=== PATIENT | female | born 1985 | race Hispanic/Latino ===

== ENCOUNTER 2016-04-09 10:09 | Emergency (ER) | payer MEDICAID ==
[~2016-04-09] VITALS: Ht 165.1 cm; Wt 124.7 kg
[~2016-04-09 10:09] MED LIST: ALBU8.5H2 IH; ALBU8.5H2 INH; AMOX250C PO; AMOX500C2 PO; AZIT-21 PO; AZIT250T5 PO; BENZ-13 PO; BUDE10.22 IH; BUDE6HFA INH; BUPR-168 PO; BUPR150T7 PO; CALC500T7 PO; CIPR500T4 PO; CLON1TAB3 PO; CODE118S2 PO; CYCL10TA9 PO; DIPH1TAB25 PO; DOCU100C37 PO; ETHI1TAB PO; FERR-74 PO; FLUT16SP22; HYDR-3816 PO; HYDR-757 PO; IBUP-15 PO; IBUP-1780 PO; LISD30CA3 PO; MEDR150D6 IM; MULT-974 PO; NAPR500T PO; NITR-68 PO; OMEP20TA33 PO; OMEP40CA36 PO; ONDA8TAB13 PO; OXYC-12 PO; OXYC-465 PO; PARO20TA4 PO; PRD20T PO; PRED20TA PO; PREN-53 PO; PROM25TA14 PO; RT-ALBUINH IH; SUCR1TAB PO; TRAM50TA2 PO; YASMIN
--- OUTSIDE RECORDS SUMMARY | 2016-04-09 10:14 | XMS REPORT ---
Author Author [facility], [facility] - Organization Unknown Address Unknown Phone Unavailable Allergies, Adverse Reactions, Alerts No Latex Allergy.No IV Contrast Allergy.No Known Drug Allergies.No Known Food Allergies.No Known Allergies. Problems PainStatus:Resolved. Procedures No relevant procedures performed. Medication Medication reconciliation has not been performed. Results LAB--FLUID TESTING from 10/05/2012 12:16 AMFetal Fibronectin Negative
[2016-04-09] MEDS ORDERED: DEXAMETHASONE PF 10 MG/ML (DECADRON) VIAL IM STA (11:26)
[2016-04-09] MEDS ORDERED: PSEU-137 PO (11:29)
[2016-04-09] MEDS ORDERED: TRAM50TA2 PO (11:29)
--- NOTE | 2016-04-09 11:30 | ED Cough/URI ---
General Chief Complaint: Cough/Cold/Flu Symptoms Stated Complaint: SINUS INFECTION Nursing Triage Note: AMB TO ROOM REPORTS HAS HAD SINUS INFECTION FOR 1 MONTH. HAS BEEN ON 2 ROUNDS ON ANTIBIOTIC AND PREDISONE. WAS GIVEN HYDROCODNE. NOT ANY BETTER AND HYDROCODONE NOT HELPING FOR PAIN History of Present Illness Time seen by provider: 11:10 Initial Comments Evaluation for chronic sinus pain. Patient took Augmentin for 10 days the first week of March. She took Zpack and finished it approximately 2 to take 3 days ago. Continues to have sinus pain. Per K Tracs she had hydrocodone No. 20 filled on 03/23/16 and oxycodone No 60 filled on 02/24/16. She has discontinued her Flonase. She denies running any fevers and really has had no improvement with any of the treatments thus far. Timing/Duration: getting worse Severity/Quality: no cough Prior Episodes/Possible Cause: frequent episodes Modifying Factors: Improves With Rest Associated Symptoms: facial pain, headache, sinus infection Allergies and Home Medications Allergies Coded Allergies: No Known Drug Allergies (Unverified , 03/11/13) Home Medications Albuterol Sulfate 8.5 Gm Hfa.aer.ad #1 1-2 PUFF IH Q4H PRN PRN WHEEZING Prescribed by: BLAKE BRO on 10/15/15 2327 Albuterol Sulfate 6.7 Gm Hfa.aer.ad #1 2 PUFF IH Q4H PRN PRN SHORTNESS OF BREATH Prescribed by: TIAN VASQUEZ on 02/02/16 2211 Pseudoephedrine HCl 30 Mg Tablet #30 30 MG PO Q8H Prescribed by: HERACLIO BYRD on 04/09/16 1129 Tramadol HCl 50 Mg Tablet #12 50 MG PO Q8H Prescribed by: HERACLIO BYRD on 04/09/16 1129 Constitutional: no symptoms reported see HPI EENTM: ear pain (pressure and feelings of fluid) nose pain other (pain along the maxilla and upper teeth) see HPI Respiratory: no symptoms reported see HPI Cardiovascular: no symptoms reported see HPI Gastrointestinal: no symptoms reported see HPI Genitourinary: no symptoms reported see HPI Musculoskeletal: no symptoms reported see HPI Skin: no symptoms reported see HPI Psychiatric/Neurological: No Symptoms Reported See HPI Hematologic/Lymphatic: No Symptoms Reported See HPI Immunological/Allergic: no symptoms reported see HPI All Other Systems Reviewed Negative Unless Noted: Yes Past Nkyjdlz-Uvlpzz-Mxfzzx Hx Patient Social History Type Used: Cigarettes Recent Foreign Travel: No Contact w/Someone Who Travel: No Recent Infectious Disease Expo: No Immunizations Up To Date Tetanus Booster (TDap): Unknown Date of Pneumonia Vaccine: Feb 21, 2012 Date of Influenza Vaccine: Nov 04, 2015 Seasonal Allergies Seasonal Allergies: Yes Surgeries HX Surgeries: Yes (WISDOM TEETH REMOVED. CERVIX BIOPSY; LEFT ARM FX/ORIF) Surgeries: Adenoidectomy, Section, Gallbladder, Orthopedic, Tonsillectomy Respiratory Hx Respiratory Disorders: Yes ("SITUATIONAL" ASTHMA--DOES NOT ROUTINELY USE AN INHALER) Respiratory Disorders: Asthma, Pneumonia Cardiovascular Hx Cardiac Disorders: No Neurological Hx Neurological Disorders: Yes Neurological Disorders: Headaches /Migraines Reproductive System Hx Reproductive Disorders: No Female Reproductive Disorders: Denies Genitourinary Hx Genitourinary Disorders: No Gastrointestinal Hx Gastrointestinal Disorders: Yes Gastrointestinal Disorders: Chronic Diarrhea, Esophagitis Musculoskeletal Hx Musculoskeletal Disorders: Yes (LEFT ARM FX/ORIF, right ankle fx) Musculoskeletal Disorders: Arthritis, Chronic Back Pain, Fractures Endocrine Hx Endocrine Disorders: No HEENT HX ENT Disorders: No Cancer Hx Cancer: No Psychosocial Hx Psychiatric Problems: Yes Behavioral Health Disorders: ADD/ADHD, Anxiety, ODD, Depression Integumentary HX Skin/Integumentary Disorder: Yes (very sensitive skin-breaks out in rashes frequently) Skin/Integumentary Disorders: Psoriasis Blood Transfusions Hx Blood Disorders: Yes (anemia, ) Adverse Reaction to a Blood Tr: No Reviewed Nursing Assessment Reviewed/Agree w Nursing PMH: Yes Family Medical History Significant Family History: Heart Disease, Cancer, Diabetes Family Medial History: Diabetes mellitus 19 MOTHER FH: COPD (chronic obstructive pulmonary disease) 19 MOTHER FH: schizophrenia 19 MOTHER FH: uterine cancer Fibromyalgia 19 MOTHER Physical Exam Vital Signs Vital Sign - Last 12Hours 04/09/16 04/09/16 10:12 11:35 Temp 96.6 Pulse 93 Resp 18 B/P 150/93 Pulse Ox 100 Capillary Refill : Less Than 3 Seconds General Appearance: WD/WN no apparent distress Eyes: Bilateral Eye EOMI, Bilateral Eye Normal Inspection, Bilateral Eye PERRL HEENT: PERRL/EOMI pharynx normal (no postnasal drainage) TM abnormal (R) TM abnormal (L)No pharyngeal erythema, No tonsillar exudate, other (bilateral TMs slightly bulging with clear effusion, no erythema) Neck: non-tender full range of motion supple normal inspection Respiratory: chest non-tender lungs clear no respiratory distress Cardiovascular: normal peripheral pulses regular rate, rhythm no murmur Gastrointestinal: normal bowel sounds non tender soft Extremities: normal range of motion non-tender normal inspection no calf tenderness normal capillary refill Neurologic/Psychiatric: no motor/sensory deficits alert normal mood/affect oriented x 3 Skin: normal color warm/dry Lymphatic: no adenopathy Progress/Results/Core Measures Results/Orders My Orders Orders-HERACLIO BYRD Dexamethasone Pf Injection (Decadron Pf (04/09/16 11:26) Vital Signs/I&O Vital Sign - Last 12Hours 04/09/16 04/09/16 10:12 11:35 Temp 96.6 Pulse 93 93 Resp 18 18 B/P 150/93 Pulse Ox 100 Blood Pressure Mean: 112 Departure Impression Impression: Primary Impression: Chronic sinusitis, unspecified Disposition: 01 HOME, SELF-CARE Condition: Stable Departure-Patient Inst. Decision time for Depature: 11:25 Referrals: [facility] (PCP[facility]Family) Primary Care Physician Patient Instructions: Chronic Sinusitis Add. Discharge Instructions: All discharge instructions reviewed with patient and/or family. Voiced understanding. Resume Flonase Use sinus rinse every 2hours. Warm moist compresses to areas of tenderness on face. Return to emergency room for worsening symptoms, fever, or new concerns. Follow-up with primary care in 2-3 days if no better consider referral to Dr. Burgess. Scripts Tramadol HCl 50 Mg Vnvhhn96 Mg PO Q8H #12 TAB Prov:HERACLIO BYRD 04/09/16 Pseudoephedrine HCl (Sudafed)30 Mg Veffxy49 Mg PO Q8H #30 TAB Ref 0 Prov:HERACLIO BYRD 04/09/16 Copy Copies To 1: SHREYAS HOWARD MD, AMY ARNP Apr 09, 2016 11:30
[2016-04-09 11:35] VITALS: BP 150/96
== END 2016-04-09 11:41 | disposition home or self-care (01) ==
LOC: EDUNIT# 10:09 → ER 10:11
DX: J32.9 Chronic sinusitis, unspecified (principal)
CPT/HCPCS: 96372; 99282

== ENCOUNTER 2016-05-26 21:55 | Emergency (ER) | payer MEDICAID ==
[~2016-05-26] VITALS: Ht 165.1 cm; Wt 122.5 kg
[~2016-05-26 21:55] MED LIST changes: +PSEU-137 PO
[2016-05-26] MEDS ORDERED: VORT20TA (22:54)
[2016-05-26] MEDS ORDERED: VYVANSE (22:54)
[2016-05-26] MEDS ORDERED: TRAZ150T72 (22:54)
[2016-05-26] MEDS ORDERED: DEXT10TA24 (22:54)
[2016-05-27] MEDS ORDERED: CLINDAMYCIN 150 MG (CLEOCIN) CAP PO ONE
[2016-05-27] MEDS ORDERED: LIDOCAINE 1% INJ 20 ML (XYLOCAINE) VIAL INJ ONE
[2016-05-27] MEDS ORDERED: CLIN150C17 PO (00:20)
[2016-05-27] MEDS ORDERED: HYDR-3812 PO (00:21)
--- NOTE | 2016-05-27 00:22 | ED General ---
General Chief Complaint: Dental Problems/Pain Stated Complaint: POSS R SIDE FACE ABSCESS/CONGESTION Nursing Triage Note: PT TO ED 3 W/ C/O POSS DENTAL ABSCESS ONSET YESTERDAY. VERY POOR DENTAL HYGIENE NOTED. Nursing Sepsis Screen: No Definite Risk Source of Information: Patient Exam Limitations: No Limitations History of Present Illness Time Seen by Provider: 23:42 Initial Comments This 30-year-old woman presents to the emergency room with complaints of right facial tenderness and pain since yesterday. She has been taking ibuprofen. States temperature at home was up to 101.7. She reports having a "knot" just posterior to the insertion of the canine tooth on the right upper mouth. This area is very tender. Allergies and Home Medications Allergies Coded Allergies: No Known Drug Allergies (Unverified , 03/11/13) Home Medications Clindamycin HCl 150 Mg Capsule, 450 MG PO TID, #90 Prescribed by: RIDDHI APARICIO on 05/27/16 0020 Dextroamphetamine/Amphetamine 10 Mg Tablet, #28 (Reported) Hydrocodone/Acetaminophen 1 Each Tablet, 1 EACH PO Q4H PRN for PAIN, #10 Prescribed by: RIDDHI APARICIO on 05/27/16 0021 Trazodone HCl 150 Mg Tablet, #15 (Reported) Vortioxetine Hydrobromide 20 Mg Tablet, #30 (Reported) [Vyvanse] , #28 (Reported) Constitutional: see HPI EENTM: see HPI Respiratory: no symptoms reported Cardiovascular: no symptoms reported Gastrointestinal: no symptoms reported Genitourinary: no symptoms reported : No Musculoskeletal: no symptoms reported Skin: no symptoms reported Psychiatric/Neurological: No Symptoms Reported Past Hfkyubx-Rctyuh-Kzfxmk Hx Patient Social History Alcohol Use: Denies Use Recreational Drug Use: No Smoking Status: Current Everyday Smoker Type Used: Cigarettes Recent Foreign Travel: No Contact w/Someone Who Travel: No Recent Infectious Disease Expo: No Immunizations Up To Date Tetanus Booster (TDap): Unknown Date of Pneumonia Vaccine: Feb 21, 2012 Date of Influenza Vaccine: Nov 04, 2015 Seasonal Allergies Seasonal Allergies: Yes Surgeries HX Surgeries: Yes (WISDOM TEETH REMOVED. CERVIX BIOPSY; LEFT ARM FX/ORIF) Surgeries: Adenoidectomy, Section, Gallbladder, Orthopedic, Tonsillectomy, Tubal Ligation Respiratory Hx Respiratory Disorders: Yes ("SITUATIONAL" ASTHMA--DOES NOT ROUTINELY USE AN INHALER) Respiratory Disorders: Asthma, Pneumonia Cardiovascular Hx Cardiac Disorders: No Neurological Hx Neurological Disorders: Yes Neurological Disorders: Headaches /Migraines Reproductive System Hx Reproductive Disorders: No Female Reproductive Disorders: Denies Genitourinary Hx Genitourinary Disorders: No Gastrointestinal Hx Gastrointestinal Disorders: Yes Gastrointestinal Disorders: Chronic Diarrhea, Esophagitis Musculoskeletal Hx Musculoskeletal Disorders: Yes (LEFT ARM FX/ORIF, right ankle fx) Musculoskeletal Disorders: Arthritis, Chronic Back Pain, Fractures Endocrine Hx Endocrine Disorders: No HEENT HX ENT Disorders: No Cancer Hx Cancer: No Psychosocial Hx Psychiatric Problems: Yes Behavioral Health Disorders: ADD/ADHD, Anxiety, ODD, Depression Integumentary HX Skin/Integumentary Disorder: Yes (very sensitive skin-breaks out in rashes frequently) Skin/Integumentary Disorders: Psoriasis Blood Transfusions Hx Blood Disorders: Yes (anemia, ) Adverse Reaction to a Blood Tr: No Family Medical History Significant Family History: Heart Disease, Cancer, Diabetes Family Medial History: Diabetes mellitus 19 MOTHER FH: COPD (chronic obstructive pulmonary disease) 19 MOTHER FH: schizophrenia 19 MOTHER FH: uterine cancer Fibromyalgia 19 MOTHER Physical Exam Vital Signs Vital Sign - Last 12Hours 05/26/16 22:41 Temp 97.8 Pulse 93 Resp 20 B/P (MAP) 129/71 Pulse Ox 99 O2 Delivery Room Air Capillary Refill : Less Than 3 Seconds General Appearance: WD/WN, Mild Distress HEENT: PERRL/EOMI, TMs Normal, Pharynx Normal, Other (Apparent abscess near the root of the canine tooth on the right upper mouth. She has a dental erosion in this area.) Neck: Normal Inspection, Non Tender, Supple Respiratory: Lungs Clear, Normal Breath Sounds, No Accessory Muscle Use, No Respiratory Distress Cardiovascular: Regular Rate, Rhythm, No Edema, No Murmur Extremity: Normal Inspection Neurologic/Psychiatric: Alert, Oriented x3, No Motor/Sensory Deficits, Normal Mood/Affect, job estimator II-XII Norm as Tested Skin: Normal Color, Warm/Dry Dental Procedures: Dental I&D Progress/Results/Core Measures Results/Orders My Orders Medications Given in ED Vital Signs/I&O Blood Pressure Mean: 90 Progress Note : Progress Note Dental abscess was identified on examination. A local anesthesia was provided with one percent lidocaine. Approximately 4 mL was injected around the abscess. A number 11 scalpel was used to place a tiny incision over the abscess. A scant amount of pus did drain from the abscess. Patient was treated with clindamycin and Toradol was administered for further pain control. Departure Impression Impression: Primary Impression: Dental abscess Additional Impression: Encounter for incision and drainage procedure Disposition: HOME, SELF-CARE Condition: Improved Departure-Patient Inst. Decision time for Depature: 00:05 Referrals: [facility] (PCP/Family) Primary Care Physician Patient Instructions: Tooth Abscess (DC) Add. Discharge Instructions: Continue to brush your teeth gently twice daily. Complete your antibiotics as prescribed. You may take ibuprofen up to 800 mg every 8 hours as needed for pain. Add hydrocodone for pain not controlled by ibuprofen. Do not drive or operate machinery while using hydrocodone. Follow-up with a dentist as soon as possible for dental extraction. Return to care if symptoms worsen. All discharge instructions reviewed with patient and/or family. Voiced understanding. Scripts Hydrocodone/Acetaminophen (Hydrocodon -Acetaminophen 5-325) 1 Each Tablet 1 EACH PO Q4H Y for PAIN, #10 TAB Prov: RIDDHI ARIAS MD 05/27/16 Clindamycin HCl (Clindamycin HCl) 150 Mg Capsule 450 MG PO TID, #90 CAP Prov: RIDDHI ARIAS MD 05/27/16 Work/School Note: Work Release Form Date Seen in the Emergency Department: May 26, 2016 Return to Work: May 27, 2016 Restrictions: No Restrictions RIDDHI ARIAS MD May 27, 2016 00:22
[2016-05-27] MEDS ORDERED: KETOROLAC 60 MG/2 ML VIAL IM ONE (00:30)
[2016-05-27 00:41] VITALS: BP 112/94
--- OUTSIDE RECORDS SUMMARY | 2016-06-27 00:54 | XMS REPORT ---
Author Author TAO ALEX [facility] eClinicalWorks Address Unknown Phone Unavailable Care Team Providers Care Manager Heart Failure Name Role Phone TAO ALEX CP Unavailable Allergies, Adverse Reactions, Alerts Substance Reaction Event Type N.K.D.A. Info Not Available Non Drug Allergy Problems Problem Type Condition Code Onset Dates Condition Status Problem Obesity, unspecified 278.00 Active Problem Major depressive disorder, recurrent episode, moderate 296.32 Active Problem Unspecified symptom associated with female genital organs 625.9 Active Problem Unspecified contraceptive management V25.9 Active Problem Previous delivery, unspecified as to episode of care or not applicable 654.20 Active Problem Acute sinusitis, unspecified 461.9 Active Problem Generalized anxiety disorder 300.02 Active Problem Obsessive-compulsive disorders 300.3 Active Problem Lumbago 724.2 Active Problem Cough 786.2 Active Assessment Z33.1 Active Problem Screening examination for venereal disease V74.5 Active Problem Counseling on substance use and abuse V65.42 Active Problem Allergic rhinitis due to pollen 477.0 Active Problem Screening for malignant neoplasm of the cervix V76.2 Active Problem General counseling for prescription of oral contraceptives V25.01 Active Problem Routine gynecological examination V72.31 Active Problem Acute pharyngitis 462 Active Medications Medication Code System Code Instructions Start Date End Date Status Dosage [facility] [address] - Orally Once a day 1 tablet Omeprazole [facility] [address]-86 10 MG Orally Once a day Dec 02, 2015 2 capsules Promethazine HCl [facility] [address]-58 25 MG Orally every 8 hours, PRN OctJan 03, 2016 1 tablet as needed ProAir HFA [facility] [address]-32 108 (90 Base) MCG/ACT Inhalation every 4 hrs 2 puffs as needed Ferrous Sulfate [facility] [address]-96 325 (65 Fe) MG Orally twice a day 1 tablet Procedures Procedure Coding System Code Date Office Visit, Est Pt., Level 3 CPT-4 86556 Dec 09, 2015 URINE-NO MICRO CPT-4 02149 Dec 09, 2015 Vital Signs Date/Time: Dec 09, 2015 Cardiac Monitoring Heart Rate 100 bpm Weight 302 lbs Height 65 in BMI 50.255 Index Blood Pressure Diastolic 84 mmHg Blood Pressure Systolic 132 mmHg Results No Known Results Summary Purpose eClinicalWorks Submission
--- OUTSIDE RECORDS SUMMARY | 2016-06-27 00:54 | XMS REPORT ---
Author Author TAO ALEX Organization [facility] Address [address] [place] [address] Care Team Providers Care Office Inspector Name Role Phone TAO ALEX Unavailable PROBLEMS Type Condition ICD9-CM Code [id number] Code Onset Dates Condition Status SNOMED Code Problem Unspecified symptom associated with female genital organs 625.9 Active 512887120 Problem Obsessive-compulsive disorders 300.3 Active 274273252 Problem Major depressive disorder, recurrent episode, moderate 296.32 Active 54266384 Problem Acute sinusitis, unspecified 461.9 Active 21209562 Problem Unspecified contraceptive management V25.9 Active 410197971 Problem Cough 786.2 Active 71828794 Problem Generalized anxiety disorder 300.02 Active 42807961 Problem Previous delivery, unspecified as to episode of care or not applicable 654.20 Active 345907356 Problem Lumbago 724.2 Active 438854074 Problem Screening examination for venereal disease V74.5 Active 622618503 Problem Screening for malignant neoplasm of the cervix V76.2 Active 368985351 Problem Allergic rhinitis due to pollen 477.0 Active 27605920 Problem General counseling for prescription of oral contraceptives V25.01 Active 819906606 Problem Routine gynecological examination V72.31 Active 901270964312527 Problem Acute pharyngitis 462 Active 621126504 Problem Counseling on substance use and abuse V65.42 Active 734577247 Problem Obesity, unspecified 278.00 Active 534628958 ALLERGIES Unknown Allergies SOCIAL HISTORY No smoking Hx information available PLAN OF CARE VITAL SIGNS MEDICATIONS Unknown Medications RESULTS No Results PROCEDURES No Known procedures IMMUNIZATIONS No Known Immunizations
--- OUTSIDE RECORDS SUMMARY | 2016-06-27 00:54 | XMS REPORT ---
Author Author TAO ALEX [facility] eClinicalWorks Address Unknown Phone Unavailable Care Team Providers Care Ice House Supervisor Name Role Phone TAO ALEX Unavailable Allergies No Known Allergies Problems Problem Type Condition Code Onset Dates [...] Instructions Start Date End Date Status Dosage ProAir HFA [facility] [address]-44 108 (90 Base) MCG/ACT Inhalation every 4 hrs 2 puffs as needed Ferrous Sulfate [facility] [address]-23 325 (65 Fe) MG Orally twice a day 1 tablet [facility] [address] - Orally Once a day 1 tablet Omeprazole [facility] [address]-11 10 MG Orally Once a day Dec 02, 2015 2 capsules Promethazine HCl [facility] [address]-40 25 MG Orally every 8 hours, PRN OctJan 03, 2016 1 tablet as needed Procedures Procedure Coding System Code Date Office Visit, Est Pt., Level 3 CPT-4 97353 Dec 16, 2015 LAB NOT BILLED BY [facility] CPT-4 NOBLL Dec 16, 2015 URINE-NO MICRO CPT-4 48360 Dec 16, 2015 Vital Signs Date/Time: Dec 16, 2015 Cardiac Monitoring Heart Rate 102 bpm Weight 299.7 lbs Height 65 in BMI 49.873 Index Blood Pressure Diastolic 85 mmHg Blood Pressure Systolic 142 mmHg Results Name Result Date Reference Range Unit Abnormality Flag UA OB DIP (IN HOUSE) ----Glucose negative [id number] ----Protein 1+ [id number] Summary Purpose eClinicalWorks Submission
--- OUTSIDE RECORDS SUMMARY | 2016-06-27 00:57 | XMS REPORT ---
Author MERVIN Soto [facility] eClinicalWorks Address Unknown Phone Unavailable Care Team Providers Care Trimmer Machine Operator Name Role Phone MERVIN DURON CP Unavailable Allergies, Adverse Reactions, Alerts Substance [...] 724.2 Active Problem Cough 786.2 Active Assessment Bilateral otitis media with effusion H65.93 Active Problem Screening examination for venereal disease [...] Instructions Start Date End Date Status Dosage HydrOXYzine HCl [facility] [address]-40 25 MG Orally every 8 hrs Oct 16, 2015 1 tablet as needed ProAir HFA [facility] [address]-57 108 (90 Base) MCG/ACT Inhalation every 4 hrs 2 puffs as needed Amoxicillin [facility] [address]-19 875 MG Orally every 12 hrs Oct 16, 2015 Oct 26, 2015 1 tablet Prednisone NDC 0 Oral 1 tab Procedures Procedure Coding System Code Date Office Visit, Est Pt., Level 3 CPT-4 73068 Oct 16, 2015 Vital Signs Date/Time: Oct 16, 2015 Cardiac Monitoring Heart Rate 102 bpm Weight 297.2 lbs Height 65 in BMI 49.45 Index Blood Pressure Diastolic 76 mmHg Blood Pressure Systolic 132 mmHg Results No Known Results Summary Purpose eClinicalWorks Submission
--- OUTSIDE RECORDS SUMMARY | 2016-06-27 00:57 | XMS REPORT | Continuity of Care Document ---
Author Author [facility] Organization [facility] Address Unknown Phone Unavailable Allergies Active Description Code Type Severity Reaction Onset Reported/Identified Relationship to Patient Clinical Status Yes No Known Drug Allergies [id number] Drug Allergy Unknown N/ A 03/11/2013 Medications Problems Date Dx Coded Attending Type Code Diagnosis Diagnosed By 07/06/2012 Jonel RECIO, Yasmine Wilkerson V22.1 SUPERVIS OTH NORMAL PREG 11/21/2012 Yasmine Remy MD 644.21 EARLY ONSET DELIVERY-DEL 11/21/2012 Yasmine Remy MD F 652.21 BREECH PRESENTAT-DELIVER 11/21/2012 Yasmine Remy MD 652.23 BREECH PRESENT-ANTEPART 11/21/2012 Yasmine Remy MD F 659.71 ABN DEL FET HT RT/RHYTHM,W OR W/O MENTION OF ANTEP 11/21/2012 Yasmine Remy MD 660.01 OBSTRUC/FET MALPOS-DELIV 11/21/2012 Jonel RECIO, Yasmine Chávez V27.0 DELIVER-SINGLE LIVEBORN 02/04/2013 SULTANA HINES APRN 462 ACUTE PHARYNGITIS 02/04/2013 DESTINY BILLINGS APRN A 462 ACUTE PHARYNGITIS 02/04/2013 SULTANA HINES APRN R 462 ACUTE PHARYNGITIS 02/04/2013 ESTER SORENSON APRN 462 ACUTE PHARYNGITIS 02/04/[address] MACHINERY INSPECTOR, DARA 462 ACUTE PHARYNGITIS 02/04/2013 ANITA RECIO, SHREYAS 462 ACUTE PHARYNGITIS 02/04/2013 BARON SALES DO 462 ACUTE PHARYNGITIS 02/04/[address] MACHINERY INSPECTOR, DARA 462 ACUTE PHARYNGITIS 02/04/2013 TOM BILLINGS APRNIDI A 462 ACUTE PHARYNGITIS 02/04/2013 SELVIN COHEN, DARA 462 ACUTE PHARYNGITIS 02/04/2013 ISAI HINES APRNIA R 462 ACUTE PHARYNGITIS 02/04/2013 ISAI HINES APRNIA R 462 ACUTE PHARYNGITIS 02/04/2013 CIELO SORENSON APRNINA R 462 ACUTE PHARYNGITIS 02/04/2013 AMIE STEPHENS, RAIN 462 ACUTE PHARYNGITIS 02/04/2013 BOB COHEN, AWILDA A 462 ACUTE PHARYNGITIS 02/04/2013 DESTINY BILLINGS APRN A 462 ACUTE PHARYNGITIS 02/04/2013 DARA MONTALVO APRN 462 ACUTE PHARYNGITIS 03/01/2013 DESTINY BILLINGS APRN A 654.20 PREVIOUS DELIVERY UNSPECIFIED TO EPISODE OF CARE IN 03/01/2013 DESTINY BILLINGS APRN A V25.9 CONTRACEPTION MANAGEMENT 03/01/2013 SULTANA HINES APRN R 654.20 PREVIOUS DELIVERY UNSPECIFIED TO EPISODE OF CARE IN 03/01/2013 ISAI HINES APRNIA R V25.9 CONTRACEPTION MANAGEMENT 03/01/2013 CIELO SORENSON APRNINA R 654.20 PREVIOUS DELIVERY UNSPECIFIED TO EPISODE OF CARE IN 03/01/2013 CIELO SORENSON APRNINA R V25.9 CONTRACEPTION MANAGEMENT 03/01/2013 SELVIN COHEN DARA 654.20 PREVIOUS DELIVERY UNSPECIFIED TO EPISODE OF CARE IN 03/01/2013 SELVIN COHEN DARA V25.9 CONTRACEPTION MANAGEMENT 03/01/2013 SHREYAS HOWARD MD 654.20 PREVIOUS DELIVERY UNSPECIFIED TO EPISODE OF CARE IN 03/01/2013 SHREYAS HOWARD MD V25.9 CONTRACEPTION MANAGEMENT 03/01/2013 BARON SALES DO 654.20 PREVIOUS DELIVERY UNSPECIFIED TO EPISODE OF CARE IN 03/01/2013 BARON SALES DO V25.9 CONTRACEPTION MANAGEMENT 03/01/2013 SELVIN COHEN DARA 654.20 PREVIOUS DELIVERY UNSPECIFIED TO EPISODE OF CARE IN 03/01/2013 SELVIN COHEN DARA V25.9 CONTRACEPTION MANAGEMENT 03/01/2013 DESTINY BILLINGS APRN A 654.20 PREVIOUS DELIVERY UNSPECIFIED TO EPISODE OF CARE IN 03/01/[address] MACHINERY INSPECTOR, DESTINY A V25.9 CONTRACEPTION MANAGEMENT 03/01/2013 WILLIE MONTALVO APRNETTE 654.20 PREVIOUS DELIVERY UNSPECIFIED TO EPISODE OF CARE IN 03/01/2013 SELVIN COHEN DARA V25.9 CONTRACEPTION MANAGEMENT 03/01/2013 ISAI HINES APRNIA R 654.20 PREVIOUS DELIVERY UNSPECIFIED TO EPISODE OF CARE IN 03/01/2013 JASON HINES APRNRICIA R V25.9 CONTRACEPTION MANAGEMENT 03/01/2013 JASON HINES APRNRICIA R 654.20 PREVIOUS DELIVERY UNSPECIFIED TO EPISODE OF CARE IN 03/01/2013 JASON HINES APRNRICIA R V25.9 CONTRACEPTION MANAGEMENT 03/01/2013 CIELO SORENSON APRNINA R 654.20 PREVIOUS DELIVERY UNSPECIFIED TO EPISODE OF CARE IN 03/01/2013 CIELO SORENSON APRNINA R V25.9 CONTRACEPTION MANAGEMENT 03/01/2013 RAIN HOLLOWAY DDS 654.20 PREVIOUS DELIVERY UNSPECIFIED TO EPISODE OF CARE IN 03/01/2013 RAIN HOLLOWAY DDS V25.9 CONTRACEPTION MANAGEMENT 03/01/2013 AWILDA ROJAS APRN A 654.20 PREVIOUS DELIVERY UNSPECIFIED TO EPISODE OF CARE IN 03/01/2013 SHRUTHI ROJAS APRNYL A V25.9 CONTRACEPTION MANAGEMENT 03/01/2013 DESTINY BILLINGS APRN A 654.20 PREVIOUS DELIVERY UNSPECIFIED TO EPISODE OF CARE IN 03/01/2013 DESTINY BILLINGS APRN A V25.9 CONTRACEPTION MANAGEMENT 03/01/2013 DARA MONTALVO APRN 654.20 PREVIOUS DELIVERY UNSPECIFIED TO EPISODE OF CARE IN 03/01/2013 SELVIN COHEN DARA V25.9 CONTRACEPTION MANAGEMENT 03/04/2013 TOM BILLINGS APRNIDI A 278.00 OBESITY UNSPECIFIED 03/04/2013 TOM BILLINGS APRNIDI A 625.9 PELVIC PAIN 03/04/2013 JASON HINES APRNRICIA R 278.00 OBESITY UNSPECIFIED 03/04/2013 JASON HINES APRNRICIA R 625.9 PELVIC PAIN 03/04/2013 AYS COHEN ESTER R 278.00 OBESITY UNSPECIFIED 03/04/[address] MACHINERY INSPECTOR, ESTER R 625.9 PELVIC PAIN 03/04/[address] MACHINERY INSPECTOR, DARA 278.00 OBESITY UNSPECIFIED 03/04/[address] MACHINERY INSPECTOR, DARA 625.9 PELVIC PAIN 03/04/2013 SHREYAS HOWARD MD 278.00 OBESITY UNSPECIFIED 03/04/2013 SHREYAS HOWARD MD 625.9 PELVIC PAIN 03/04/2013 SALES DO, BARON K 278.00 OBESITY UNSPECIFIED 03/04/2013 SALES DO, BARON K 625.9 PELVIC PAIN 03/04/[address] MACHINERY INSPECTOR, DARA 278.00 OBESITY UNSPECIFIED 03/04/[address] MACHINERY INSPECTOR, DARA 625.9 PELVIC PAIN 03/04/[address] MACHINERY INSPECTOR, DESTINY A 278.00 OBESITY UNSPECIFIED 03/04/[address] MACHINERY INSPECTOR, DESTINY A 625.9 PELVIC PAIN 03/04/[address] MACHINERY INSPECTOR, DARA 278.00 OBESITY UNSPECIFIED 03/04/[address] MACHINERY INSPECTOR, DARA 625.9 PELVIC PAIN 03/04/[address] MACHINERY INSPECTOR, SULTANA R 278.00 OBESITY UNSPECIFIED 03/04/[address] MACHINERY INSPECTOR, SULTANA R 625.9 PELVIC PAIN 03/04/[address] MACHINERY INSPECTOR, SULTANA R 278.00 OBESITY UNSPECIFIED 03/04/[address] MACHINERY INSPECTOR, SULTANA R 625.9 PELVIC PAIN 03/04/[address] MACHINERY INSPECTOR, ESTER R 278.00 OBESITY UNSPECIFIED 03/04/[address] MACHINERY INSPECTOR, ESTER R 625.9 PELVIC PAIN 03/04/2013 HOLLOWAY DDS, RAIN 278.00 OBESITY UNSPECIFIED 03/04/2013 HOLLOWAY DDS, RAIN 625.9 PELVIC PAIN 03/04/[address] MACHINERY INSPECTOR, AWILDA A 278.00 OBESITY UNSPECIFIED 03/04/[address] MACHINERY INSPECTOR, AWILDA A 625.9 PELVIC PAIN 03/04/[address] MACHINERY INSPECTOR, DESTINY A 278.00 OBESITY UNSPECIFIED 03/04/[address] MACHINERY INSPECTOR, DESTINY A 625.9 PELVIC PAIN 03/04/[address] MACHINERY INSPECTOR, DARA 278.00 OBESITY UNSPECIFIED 03/04/[address] MACHINERY INSPECTOR, DARA 625.9 PELVIC PAIN 03/11/2013 SILVIA PARSON DO Ot 465.9 03/11/2013 SILVIA PARSON DO Ot 786.9 04/04/[address] MACHINERY INSPECTOR, DARA 296.32 MO DEPRESSIVE RECURRENT MODERATE 04/04/[address] MACHINERY INSPECTOR, DARA 300.02 AN GEN ANXIETY 04/04/[address] MACHINERY INSPECTOR, DARA 300.3 AN OBCESS COMP DIS 04/04/2013 SHREYAS HOWARD MD 296.32 MO DEPRESSIVE RECURRENT MODERATE 04/04/2013 SHREYAS HOWARD MD 300.02 AN GEN ANXIETY 04/04/2013 SHREYAS HOWARD MD 300.3 AN OBCESS COMP DIS 04/04/2013 BARON SALES DO K 296.32 MO DEPRESSIVE RECURRENT MODERATE 04/04/2013 BARON SALES DO K 300.02 AN GEN ANXIETY 04/04/2013 BARON SALES DO K 300.3 AN OBCESS COMP DIS 04/04/2013 SELVINASHU COHEN DARA 296.32 MO DEPRESSIVE RECURRENT MODERATE 04/04/2013 SELVIN COHEN DARA 300.02 AN GEN ANXIETY 04/04/2013 SELVIN COHEN DARA 300.3 AN OBCESS COMP DIS 04/04/2013 AWAGuy COHEN DESTINY A 296.32 MO DEPRESSIVE RECURRENT MODERATE 04/04/2013 AWA APRN, DESTINY A 300.02 AN GEN ANXIETY 04/04/2013 AWAGuy COHEN DESTINY A 300.3 AN OBCESS COMP DIS 04/04/2013 SELVINASHU COHEN DARA 296.32 MO DEPRESSIVE RECURRENT MODERATE 04/04/2013 SELVIN COHEN DARA 300.02 AN GEN ANXIETY 04/04/2013 SELVIN COHEN DARA 300.3 AN OBCESS COMP DIS 04/04/2013 JASON HINES APRNRICIA R 296.32 MO DEPRESSIVE RECURRENT MODERATE 04/04/2013 DONNY COHEN SULTANA R 300.02 AN GEN ANXIETY 04/04/2013 DONNY COHEN SULTANA R 300.3 AN OBCESS COMP DIS 04/04/2013 DONNY OCHEN SULTANA R 296.32 MO DEPRESSIVE RECURRENT MODERATE 04/04/2013 DONNY COHEN SULTANA R 300.02 AN GEN ANXIETY 04/04/2013 DONNY COHEN SULTANA R 300.3 AN OBCESS COMP DIS 04/04/2013 YAS COHEN ESTER R 296.32 MO DEPRESSIVE RECURRENT MODERATE 04/04/2013 CIELO SORENSON APRNINA R 300.02 AN GEN ANXIETY 04/04/2013 CIELO SORENSON APRNINA R 300.3 AN OBCESS COMP DIS 04/04/2013 HOLLOWAY DDS, RAIN 296.32 MO DEPRESSIVE RECURRENT MODERATE 04/04/2013 HOLLOWAY DDS, RAIN 300.02 AN GEN ANXIETY 04/04/2013 HOLLOWAY DDS, RAIN 300.3 AN OBCESS COMP DIS 04/04/2013 SHRUTHI ROJAS APRNYL A 296.32 MO DEPRESSIVE RECURRENT MODERATE 04/04/2013 BOB COHEN AWILDA A 300.02 AN GEN ANXIETY 04/04/2013 SHRUTHI ROJAS APRNYL A 300.3 AN OBCESS COMP DIS 04/04/2013 DESTINY BILLINGS APRN A 296.32 MO DEPRESSIVE RECURRENT MODERATE 04/04/2013 TOM BILLINGS APRNIDI A 300.02 AN GEN ANXIETY 04/04/2013 TOM BILLINGS APRNIDI A 300.3 AN OBCESS COMP DIS 04/04/2013 DARA MONTALVO APRN 296.32 MO DEPRESSIVE RECURRENT MODERATE 04/04/2013 DARA MONTALVO APRN 300.02 AN GEN ANXIETY 04/04/2013 DARA MONTALVO APRN 300.3 AN OBCESS COMP DIS 08/05/2013 DESTINY BILLINGS APRN A V25.01 CONTRACEPTION - ORAL CONTRACEPTION 08/05/2013 DARA MONTALVO APRN V25.01 CONTRACEPTION - ORAL CONTRACEPTION 08/05/2013 SULTANA HINES APRN R V25.01 CONTRACEPTION - ORAL CONTRACEPTION 08/05/2013 SULTANA HINES APRN R V25.01 CONTRACEPTION - ORAL CONTRACEPTION 08/05/2013 CIELO SORENSON APRNINA R V25.01 CONTRACEPTION - ORAL CONTRACEPTION 08/05/2013 AMIE STEPHENS, RAIN V25.01 CONTRACEPTION - ORAL CONTRACEPTION 08/05/2013 SHRUTHI ROJAS APRNYL A V25.01 CONTRACEPTION - ORAL CONTRACEPTION 08/05/2013 DESTINY BILLINGS APRN A V25.01 CONTRACEPTION - ORAL CONTRACEPTION 08/05/2013 DARA MONTALVO APRN V25.01 CONTRACEPTION - ORAL CONTRACEPTION 09/16/2013 LIZBETH SALAZAR APRN Ot 300.01 10/28/2013 SULTANA HINES APRN R 461.9 SINUSITIS ACUTE 10/28/2013 SULTANA HINES APRN R 461.9 SINUSITIS ACUTE 10/28/2013 ESTER SORENSON APRN R 461.9 SINUSITIS ACUTE 10/28/2013 AMIE STEPHENS, RAIN 461.9 SINUSITIS ACUTE 10/28/2013 BOB COHEN AWILDA A 461.9 SINUSITIS ACUTE 10/28/2013 AWA COHEN DESTINY A 461.9 SINUSITIS ACUTE 10/28/2013 DARA MONTALVO APRN 461.9 SINUSITIS ACUTE 12/06/[address] MACHINERY INSPECTOR Ot 466.0 12/06/[address] MACHINERY INSPECTOR Ot 786.2 01/01/2014 ESTER SORENSON APRN R 786.2 COUGH 01/01/2014 AMIE STEPHENS, RAIN 786.2 COUGH 01/01/2014 SHRUTHI ROJAS APRNYL A 786.2 COUGH 01/01/2014 AWA COHEN DESTINY A 786.2 COUGH 01/01/2014 DARA MONTALVO APRN 786.2 COUGH 01/29/[address] MACHINERY INSPECTOR Ot 620.2 01/29/2014 DIEUDONNE RECIO, BLAKE Hunt Ot 724.2 01/29/2014 DIEUDONNE RECIO, BLAKE Hunt Ot 724.4 01/29/2014 DIEUDONNE RECIO, BLAKE Hunt Ot E000.8 01/29/2014 DIEUDONNE RECIO, BLAKE Hunt Ot E014.1 01/29/2014 DIEUDONNE RECIO, BLAKE Hunt Ot E849.7 01/29/2014 DIEUDONNE RECIO, BLAKE Hunt Ot E927.0 01/29/[address] MACHINERY INSPECTOR Ot 620.2 01/31/2014 AMIE STEPHENS, RAIN 724.2 LUMBAGO 01/31/2014 SHRUTHI ROJAS APRNYL A 724.2 LUMBAGO 01/31/2014 AWAGuy COHEN DESTINY A 724.2 LUMBAGO 01/31/2014 SELVINASHU COHEN DARA 724.2 LUMBAGO 02/10/[address] MACHINERY INSPECTOR Ot 620.2 03/28/2014 ANITA RECIO, SHREYAS F Ot 530.10 03/28/2014 ANITA RECIO, SHREYAS F Ot 578.0 03/28/2014 ANITA RECIO, SHREYAS F Ot 300.00 03/28/2014 ANITA RECIO, SHREYAS F Ot 300.3 03/28/2014 ANITA RECIO, SHREYAS F Ot 305.1 03/28/2014 ANITA RECIO, SHREYAS F Ot 314.01 03/28/2014 ANITA RECIO, SHREYAS F Ot 493.90 03/28/2014 ANITA RECIO, SHREYAS F Ot 530.10 03/28/2014 ANTIA RECIO, SHREYAS F Ot 530.11 03/28/2014 ANTIA RECIO, SHREYAS F Ot 530.81 03/28/2014 ANITA RECIO, SHERYAS F Ot 535.50 03/28/2014 ANITA RECIO, SHREYAS F Ot 578.0 03/28/2014 ANITA RECIO, SHREYAS F Ot 724.5 04/03/2014 ANITA RECIO, SHREYAS F Ot 300.00 04/03/2014 ANITA RECIO, SHREYAS F Ot 300.3 04/03/2014 ANITA RECIO, SHREYAS Kyler Ot 305.1 04/03/2014 ANITA RECIO, SHREYAS Kyler Ot 314.01 04/03/2014 ANITA RECIO, SHREYAS Kyler Ot 493.90 04/03/2014 ANITA RECIO, SHREYAS Kyler Ot 530.11 04/03/2014 ANITA RECIO, SHREYAS Kyler Ot 530.81 04/03/2014 ANITA RECIO, SHREYAS Chávez Ot 535.50 04/03/2014 ANITA RECIO, SHREYAS Chávez Ot 724.5 05/08/2014 DESTINY BILLINGS APRN 477.0 ALLERGIC RHINITIS DUE TO POLLEN 05/08/2014 DARA MONTALVO APRN 477.0 ALLERGIC RHINITIS DUE TO POLLEN 05/12/2014 DESTINY BILLINGS APRN V65.42 COUNSELING - SMOKING CESSATION 05/12/2014 DESTINY BILLINGS APRN 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, 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 05/12/2014 DESTINY BILLINGS APRN V74.5 STD SCREEN 05/12/2014 DESTINY BILLINGS APRN V76.2 CERVICAL CANCER SCREENING (PAP SMEAR) 05/12/2014 DARA MONTALVO APRN V65.42 COUNSELING - SMOKING CESSATION 05/12/2014 DARA MONTALVO APRN 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, ROUTINE 05/12/2014 DARA MONTALVO APRN V74.5 STD SCREEN 05/12/2014 DARA MONTALVO APRN V76.2 CERVICAL CANCER SCREENING (PAP SMEAR) 05/17/2014 EFRAÍN RECIO, ANDREW Wilkerson Ot 558.9 05/17/2014 EFRAÍN RECIO, ANDREW Wilkerson Ot 787.91 07/09/2014 JUANA RECIO, RIDDHI Gamble Ot 724.2 07/09/2014 JUANA RECIO, RIDDHI Gamble Ot 724.4 10/19/2014 BLAKE BRO MD Ot 388.70 10/19/2014 BLAKE BRO MD Ot 462 10/19/2014 BLAKE BRO MD Ot 785.6 02/07/2015 BLAKE BRO MD Ot F17.210 NICOTINE DEPENDENCE, CIGARETTES, UNCOMPL 02/07/2015 BLAKE BRO MD Ot J02.9 ACUTE PHARYNGITIS, UNSPECIFIED 02/07/2015 BLAKE BRO MD Ot R50.9 FEVER, UNSPECIFIED 02/07/2015 AWADESTINY Tovar APRN Ot 620.2 05/12/2015 TIAN ORTEGA Ot F17.210 NICOTINE DEPENDENCE, CIGARETTES, UNCOMPL 05/12/2015 TIAN ORTEGA Ot J06.9 ACUTE UPPER RESPIRATORY INFECTION, UNSPE 05/12/2015 TIAN ORTEGA Ot R11.10 VOMITING, UNSPECIFIED 05/12/2015 TIAN ORTEGA Ot R19.7 DIARRHEA, UNSPECIFIED 05/13/2015 TIAN ORTEGA Ot F17.210 05/13/2015 TIAN ORTEGA Ot J06.9 05/13/2015 TIAN ORTEGA Ot R11.10 05/13/2015 TIAN ORTEGA Ot R19.7 05/29/2015 LIZBETH SALAZAR APRN Ot N83.20 UNSPECIFIED OVARIAN CYSTS 05/29/2015 LIZBETH SALAZAR APRN Ot O99.611 [facility] 05/29/2015 LIZBETH SALAZAR APRN Ot Z3A.01 LESS THAN 8 WEEKS GESTATION OF 05/30/2015 CHRISTINA GOMEZ TIAN Sangeeta Ot F17.210 05/30/2015 CHRISTINA GOMEZ TIAN Sangeeta Ot J06.9 05/30/2015 TIAN ORTEGA Ot R11.10 05/30/2015 CHRISTINA GOMEZ TIAN Sangeeta Ot R19.7 06/01/[address] MACHINERY INSPECTOR Ot N83.20 06/01/[address] MACHINERY INSPECTOR Ot O99.611 06/01/[address] MACHINERY INSPECTOR Ot Z3A.01 07/21/2015 TAO ALEX MD, Ot Z34.80 ENCOUNTER FOR SUPRVSN OF NORMAL PREGNANC 07/21/2015 TAO ALEX MD Ot Z34.80 ENCOUNTER FOR SUPRVSN OF NORMAL PREGNANC 07/31/2015 GUILLE ARELLANO MD Ot O26.852 SPOTTING COMPLICATING , SECOND 07/31/2015 GUILLE ARELLANO MD Ot O99.332 SMOKING (TOBACCO) COMPLICATING 07/31/2015 GUILLE ARELLANO MD Ot Z3A.18 18 WEEKS GESTATION OF 08/03/2015 GUILLE ARELLANO MD Ot O26.852 SPOTTING COMPLICATING , SECOND 08/03/2015 GUILLE ARELLANO MD Ot O99.332 SMOKING (TOBACCO) COMPLICATING 08/03/2015 GUILLE ARELLANO MD Ot Z3A.18 18 WEEKS GESTATION OF 08/06/2015 TAO ALEX MD Ot Z34.80 ENCOUNTER FOR SUPRVSN OF NORMAL PREGNANC 09/15/2015 TAO ALEX MD Ot Z34.80 ENCOUNTER FOR SUPRVSN OF NORMAL PREGNANC 09/15/2015 TAO ALEX MD Ot O36.8120 DECREASED MOVEMENTS, SECOND TRIMES 09/15/2015 TAO ALEX MD Ot Z3A.25 25 WEEKS GESTATION OF 09/21/2015 TAO ALEX MD Ot Z34.80 ENCOUNTER FOR SUPRVSN OF NORMAL PREGNANC 09/22/2015 TAO ALEX MD Ot Z33.1 STATE, INCIDENTAL 09/22/2015 TAO ALEX MD Ot Z33.1 STATE, INCIDENTAL 09/23/2015 JACQUES ONEAL MD Ot O21.2 LATE VOMITING OF 09/23/2015 JACQUES ONEAL MD Ot O99.89 OTH DISEASES AND CONDITIONS COMPL PREG/C 09/23/2015 JACQUES ONEAL MD Ot R19.7 DIARRHEA, UNSPECIFIED 09/23/2015 JACQUES ONEAL MD Ot Z3A.22 22 WEEKS GESTATION OF 09/24/2015 JACQUES ONEAL MD Ot O21.2 LATE VOMITING OF 09/24/2015 JACQUES ONEAL MD Ot O99.89 OTH DISEASES AND CONDITIONS COMPL PREG/C 09/24/2015 JACQUES ONEAL MD Ot R19.7 DIARRHEA, UNSPECIFIED 09/24/2015 JACQUES ONEAL MD Ot Z3A.22 22 WEEKS GESTATION OF 10/07/2015 TAO ALEX MD, Ot Z34.80 ENCOUNTER FOR SUPRVSN OF NORMAL PREGNANC 10/07/2015 TAO ALEX MD, Ot Z33.1 STATE, INCIDENTAL 10/08/2015 TAO ALEX MD, Ot Z33.1 STATE, INCIDENTAL 10/15/2015 BLAKE BRO MD, Ot J06.9 ACUTE UPPER RESPIRATORY INFECTION, UNSPE 10/15/2015 BLAKE BRO MD, Ot J45.901 UNSPECIFIED ASTHMA WITH (ACUTE) EXACERBA 10/15/2015 BLAKE BRO MD, Ot O99.332 SMOKING (TOBACCO) COMPLICATING 10/15/2015 BLAKE BRO MD, Ot O99.512 DISEASES OF THE RESP SYS COMP , 10/15/2015 BLAKE BRO MD, Ot Z3A.26 26 WEEKS GESTATION OF 10/16/2015 BARON SALES DO Ot O99.89 OTH DISEASES AND CONDITIONS COMPL PREG/C 10/16/2015 BARON SALES DO Ot R10.9 UNSPECIFIED ABDOMINAL PAIN 10/16/2015 BARON SALES DO Ot Z3A.26 26 WEEKS GESTATION OF 10/16/2015 BLAKE BRO MD, Ot J06.9 ACUTE UPPER RESPIRATORY INFECTION, UNSPE 10/16/2015 BLAKE BRO MD, Ot J45.901 UNSPECIFIED ASTHMA WITH (ACUTE) EXACERBA 10/16/2015 BLAKE BRO MD Ot O99.332 SMOKING (TOBACCO) COMPLICATING 10/16/2015 BLAKE BRO MD, Ot O99.512 DISEASES OF THE RESP SYS COMP , 10/16/2015 BLAKE BRO MD Ot Z3A.26 26 WEEKS GESTATION OF 10/18/2015 BLAKE BRO MD, Ot J40 BRONCHITIS, NOT SPECIFIED ACUTE OR CH 10/18/2015 BLAKE BRO MD Ot O99.332 SMOKING (TOBACCO) COMPLICATING 10/18/2015 BLAKE BRO MD Ot R05 COUGH 10/18/2015 BLAKE BRO MD, Ot Z3A.26 26 WEEKS GESTATION OF 10/20/2015 BLAKE BRO MD, Ot J40 BRONCHITIS, NOT SPECIFIED ACUTE OR CH 10/20/2015 BLAKE BRO MD Ot O99.332 SMOKING (TOBACCO) COMPLICATING 10/20/2015 BLAKE BRO MD Ot R05 COUGH 10/20/2015 BLAKE BRO MD Ot Z3A.26 26 WEEKS GESTATION OF 10/24/2015 BLAKE BRO MD, Ot J40 BRONCHITIS, NOT SPECIFIED ACUTE OR CH 10/24/2015 BLAKE BRO MD Ot O99.332 SMOKING (TOBACCO) COMPLICATING 10/24/2015 BLAKE BRO MD Ot R05 COUGH 10/24/2015 BLAKE BRO MD Ot Z3A.26 26 WEEKS GESTATION OF 10/25/2015 TAO ALEX MD Ot A41.9 SEPSIS, UNSPECIFIED ORGANISM 10/25/2015 TAO ALEX MD, Ot J44.0 CHRONIC OBSTRUCTIVE PULMON DISEASE W ACU 10/25/2015 ATO ALEX MD, Ot J45.901 UNSPECIFIED ASTHMA WITH (ACUTE) EXACERBA 10/25/2015 TAO ALEX MD, Ot O98.812 OTH MATERNAL INFEC/PARASTC DISEASES COMP 10/25/2015 TAO ALEX MD, Ot O99.332 SMOKING (TOBACCO) COMPLICATING 10/25/2015 TAO ALEX MD, Ot O99.512 DISEASES OF THE RESP SYS COMP , 10/25/2015 TAO ALEX MD, Ot O99.89 OTH DISEASES AND CONDITIONS COMPL PREG/C 10/25/2015 ATO ALEX MD, Ot R19.7 DIARRHEA, UNSPECIFIED 10/25/2015 TAO ALEX MD, Ot Z3A.26 26 WEEKS GESTATION OF 11/03/2015 HENRRY FULTON BARON Anant Ot O99.89 OTH DISEASES AND CONDITIONS COMPL PREG/C 11/03/2015 HENRRY FULTONBARON Ot R10.9 UNSPECIFIED ABDOMINAL PAIN 11/03/2015 SALES BARON FULTON Ot Z3A.26 26 WEEKS GESTATION OF 11/13/2015 TAO ALEX MD, Ot O09.213 SUPRVSN OF PREG W HISTORY OF PRE-TERM LA 11/13/2015 TAO ALEX MD, Ot O60.03 LABOR WITHOUT DELIVERY, THIRD TR 11/13/2015 TAO AELX MD, Ot Z3A.30 30 WEEKS GESTATION OF 11/17/2015 TAO ALEX MD, Ot O26.853 SPOTTING COMPLICATING , THIRD T 11/17/2015 TAO ALEX MD, Ot Z3A.31 31 WEEKS GESTATION OF 11/26/2015 TAO ALEX MD, Ot O62.4 HYPERTONIC, INCOORDINATE, AND PROLONGED 11/26/2015 TAO ALEX MD, Ot Z3A.33 33 WEEKS GESTATION OF 12/08/2015 TAO ALEX MD, Ot N85.8 OTHER SPECIFIED NONINFLAMMATORY DISORDER 12/08/2015 TAO ALEX MD, Ot O99.89 OTH DISEASES AND CONDITIONS COMPL PREG/C 12/08/2015 TAO ALEX MD, Ot Z3A.34 34 WEEKS GESTATION OF 12/10/2015 TAO ALEX MD, Ot Z34.80 ENCOUNTER FOR SUPRVSN OF NORMAL PREGNANC 12/10/2015 TAO ALEX MD, Ot Z33.1 STATE, INCIDENTAL 12/11/2015 TAO ALEX MD, Ot O62.4 HYPERTONIC, INCOORDINATE, AND PROLONGED 12/11/2015 TAO ALEX MD, Ot Z3A.33 33 WEEKS GESTATION OF 12/11/2015 TAO ALEX MD, Ot O62.4 HYPERTONIC, INCOORDINATE, AND PROLONGED 12/11/2015 TAO ALEX MD, Ot Z3A.33 33 WEEKS GESTATION OF 12/14/2015 TAO ALEX MD, Ot N85.8 OTHER SPECIFIED NONINFLAMMATORY DISORDER 12/14/2015 TAO ALEX MD, Ot O99.89 OTH DISEASES AND CONDITIONS COMPL PREG/C 12/14/2015 TAO ALEX MD, Ot Z3A.34 34 WEEKS GESTATION OF 12/14/2015 TAO ALEX MD, Ot N85.8 OTHER SPECIFIED NONINFLAMMATORY DISORDER 12/14/2015 TAO ALEX MD, Ot O99.89 OTH DISEASES AND CONDITIONS COMPL PREG/C 12/14/2015 TAO ALEX MD, Ot Z3A.34 34 WEEKS GESTATION OF 12/17/2015 TAO ALEX MD, Ot O62.4 HYPERTONIC, INCOORDINATE, AND PROLONGED 12/17/2015 TAO ALEX MD, Ot Z3A.33 33 WEEKS GESTATION OF 12/20/2015 TAO ALEX MD, Ot O34.219 MATERNAL CARE FOR UNSP TYPE SCAR FROM [place] 12/20/2015 TAO ALEX MD, Ot O47.03 FALSE LABOR BEFORE 37 COMPLETED WEEKS OF 12/20/2015 TAO ALEX MD, Ot Z3A.36 36 WEEKS GESTATION OF 12/26/2015 BARON SALES DO Ot O47.03 FALSE LABOR BEFORE 37 COMPLETED WEEKS OF 12/26/2015 BARON SALES DO Ot Z3A.36 36 WEEKS GESTATION OF 01/01/2016 BARON SALES DO Ot O47.03 FALSE LABOR BEFORE 37 COMPLETED WEEKS OF 01/01/2016 BARON SALES DO Ot Z3A.36 36 WEEKS GESTATION OF 01/01/2016 TAO ALEX MD, Ot Z34.80 ENCOUNTER FOR SUPRVSN OF NORMAL PREGNANC 01/01/2016 TAO ALEX MD, Ot Z33.1 STATE, INCIDENTAL 01/01/2016 QUIQUE RIBEIRO MD, Ot O14.03 MILD TO MODERATE PRE-ECLAMPSIA, THIRD TR 01/01/2016 QUIQUE RIBEIRO MD, Ot D64.9 ANEMIA, UNSPECIFIED 01/01/2016 QUIQUE RIBEIRO MD, Ot O34.211 MATERN CARE FOR LOW TRANSVERSE SCAR FROM 01/01/2016 QUIQUE RIBEIRO MD, Ot O99.013 ANEMIA COMPLICATING , THIRD TRI 01/01/2016 QUIQUE RIBEIRO MD, Ot Z01.818 ENCOUNTER FOR OTHER PREPROCEDURAL EXAMIN 01/01/2016 QUIQUE RIBEIRO MD, Ot Z11.2 ENCOUNTER FOR SCREENING FOR OTHER BACTER 01/01/2016 QUIQUE RIBEIRO MD, Ot Z3A.00 WEEKS OF GESTATION OF NOT SPEC 01/03/2016 BARON SALES DO Ot O47.03 FALSE LABOR BEFORE 37 COMPLETED WEEKS OF 01/03/2016 BARON SALES DO Ot Z3A.36 36 WEEKS GESTATION OF 01/04/2016 QUIQUE RIBEIRO MD, Ot D64.9 ANEMIA, UNSPECIFIED 01/04/2016 QUIQUE RIBEIRO MD, Ot O34.211 MATERN CARE FOR LOW TRANSVERSE SCAR FROM 01/04/2016 QUIQUE RIBEIRO MD, Ot O99.013 ANEMIA COMPLICATING , THIRD TRI 01/04/2016 QUIQUE RIBEIRO MD, Ot Z01.818 ENCOUNTER FOR OTHER PREPROCEDURAL EXAMIN 01/04/2016 QUIQUE RIBEIRO MD, Ot Z11.2 ENCOUNTER FOR SCREENING FOR OTHER BACTER 01/04/2016 QUIQUE RIBEIRO MD, Ot Z3A.00 WEEKS OF GESTATION OF NOT SPEC 01/05/2016 QUIQUE RIBEIRO MD, Ot O14.03 MILD TO MODERATE PRE-ECLAMPSIA, THIRD TR 01/06/2016 TAO ALEX MD Ot Z34.80 ENCOUNTER FOR SUPRVSN OF NORMAL PREGNANC 01/06/2016 TAO ALEX MD Ot Z33.1 STATE, INCIDENTAL 01/06/2016 QUIQUE RIBEIRO MD, Ot O14.03 MILD TO MODERATE PRE-ECLAMPSIA, THIRD TR 01/06/2016 QUIQUE RIBEIRO MD, Ot O14.03 MILD TO MODERATE PRE-ECLAMPSIA, THIRD TR 01/08/2016 QUIQUE RIBEIRO MD, Ot O34.211 MATERN CARE FOR LOW TRANSVERSE SCAR FROM 01/08/2016 QUIQUE RIBEIRO MD, Ot O40.3XX0 POLYHYDRAMNIOS, THIRD TRIMESTER, NOT CAS 01/08/2016 QUIQUE RIBEIRO MD, Ot O65.5 OBSTRUCTED LABOR DUE TO ABNLT OF MATERNA 01/08/2016 QUIQUE RIBEIRO MD, Ot Z37.0 SINGLE LIVE 01/08/2016 QUIQUE RIBEIRO MD, Ot Z3A.38 38 WEEKS GESTATION OF 01/09/2016 TAO ALEX MD Ot Z34.80 ENCOUNTER FOR SUPRVSN OF NORMAL PREGNANC 01/09/2016 TAO ALEX MD, Ot Z33.1 STATE, INCIDENTAL 01/09/2016 QUIQUE RIBEIRO MD, Ot O14.03 MILD TO MODERATE PRE-ECLAMPSIA, THIRD TR 01/09/2016 QUIQUE RIBEIRO MD, Ot O14.03 MILD TO MODERATE PRE-ECLAMPSIA, THIRD TR 01/09/2016 YULY RECIO, LORETO Nguyễn Ot F17.210 NICOTINE DEPENDENCE, CIGARETTES, UNCOMPL 01/09/2016 YULY RECIO, LORETO Nguyễn Ot L30.9 DERMATITIS, UNSPECIFIED 01/11/2016 YULY RECIO, LORETO Nguyễn Ot F17.210 NICOTINE DEPENDENCE, CIGARETTES, UNCOMPL 01/11/2016 YULY RECIO, LORETO Nguyễn Ot L30.9 DERMATITIS, UNSPECIFIED 01/18/2016 QUIQUE RIBEIRO MD Ot O14.03 MILD TO MODERATE PRE-ECLAMPSIA, THIRD TR 01/21/2016 QUIQUE RIBEIRO MD, Ot O14.03 MILD TO MODERATE PRE-ECLAMPSIA, THIRD TR 02/02/2016 TAO ALEX MD Ot Z34.80 ENCOUNTER FOR SUPRVSN OF NORMAL PREGNANC 02/02/2016 TAO ALEX MD Ot Z33.1 STATE, INCIDENTAL 02/02/2016 QUIQUE RIBEIRO MD Ot O14.03 MILD TO MODERATE PRE-ECLAMPSIA, THIRD TR 02/02/2016 QUIQUE RIBEIRO MD, Ot O14.03 MILD TO MODERATE PRE-ECLAMPSIA, THIRD TR 02/02/2016 TIAN ORTEGA Ot F17.210 NICOTINE DEPENDENCE, CIGARETTES, UNCOMPL 02/02/2016 TIAN ORTEGA Ot J06.9 ACUTE UPPER RESPIRATORY INFECTION, UNSPE 02/02/2016 TIAN ORTEGA Ot J40 BRONCHITIS, NOT SPECIFIED ACUTE OR CH 02/02/2016 TIAN ORTEGA Ot R09.81 NASAL CONGESTION 02/03/2016 TIAN ORTEGA Ot F17.210 NICOTINE DEPENDENCE, CIGARETTES, UNCOMPL 02/03/2016 TIAN ORTEGA Ot J06.9 ACUTE UPPER RESPIRATORY INFECTION, UNSPE 02/03/2016 TIAN ORTEGA Ot J40 BRONCHITIS, NOT SPECIFIED ACUTE OR CH 02/03/2016 TIAN ORTEGA Ot R09.81 NASAL CONGESTION 04/09/2016 ABI RECIO, TAO Nguyễn Ot Z34.80 ENCOUNTER FOR SUPRVSN OF NORMAL PREGNANC 04/09/2016 TAO ALEX MD, Ot Z33.1 STATE, INCIDENTAL 04/09/2016 QUINTIN RECIO, QUIQUE Osorio Ot O14.03 MILD TO MODERATE PRE-ECLAMPSIA, THIRD TR 04/09/2016 QUIQUE RIBEIRO MD Ot O14.03 MILD TO MODERATE PRE-ECLAMPSIA, THIRD TR 04/09/2016 HERACLIO BYRD Ot J32.9 CHRONIC SINUSITIS, UNSPECIFIED 04/12/2016 HERACLIO BYRD Ot J32.9 CHRONIC SINUSITIS, UNSPECIFIED 05/27/2016 RIDDHI ARIAS MD Ot F17.210 NICOTINE DEPENDENCE, CIGARETTES, UNCOMPL 05/27/2016 RIDDHI ARIAS MD Ot K04.7 PERIAPICAL ABSCESS WITHOUT SINUS 05/27/2016 RIDDHI ARIAS MD Ot 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 05/27/2016 RIDDHI ARIAS MD Ot F17.210 NICOTINE DEPENDENCE, CIGARETTES, UNCOMPL 05/27/2016 RIDDHI ARIAS MD Ot K04.7 PERIAPICAL ABSCESS WITHOUT SINUS 05/27/2016 RIDDHI ARIAS MD Ot 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 Procedures Code Description Performed By Performed On 74.1 LOW CERVICAL Jonel RECIO, [place] A 11/21/2012 12610 STREP A (IN-HOUSE) 02/04/2013 30230 THERAPUTIC INJ SQ/IM 03/01/2013 J1050 DEPO PROVERA 11/2013 94490 TEST, URINE (IN-HOUSE) 03/01/2013 02159 CULTURE THROAT 91556 US PELVIC COMPL (REFLEX CPT- 59154) 03/05/2013 J1050 DEPO PROVERA 04/2013 59032 TEST, URINE (IN-HOUSE) 05/23/2013 28519 THERAPUTIC INJ SQ/IM 05/23/2013 50983 STREP A (IN-HOUSE) 10/28/2013 08573 ROUTINE VENIPUNCTURE 01/01/2014 76305 OXIMETRY 2013 40148 CBC 01/01/2014 79289 MYCOPLASMA ANTIBODY 01/02/2014 53288 THERAPUTIC INJ SQ/IM 05/12/2014 J1050 DEPO PROVERA 79243 TEST, URINE (IN-HOUSE) 05/12/2014 26126 TRICHOMONAS (IN-HOUSE) 05/12/2014 82919 CULTURE UROGENITAL 05/12/2014 79315 GC/CHLAM PROBE (STATE) 05/12/2014 50748 PAP SMEAR 2014 Q0091 PAP SMEAR OBTAIN SMEAR 05/12/2014 [id number] EXTRACTION OF POC, LOW CERVICAL, OPEN AP 01/06/2016 Results Test Result Range CBC W/DIFF - 05/01/12 22:42 EOSINOPHIL # 0.2 k/cumm 0.1-0.5 EOSINOPHIL % 1 % 2-4 GRANULOCYTE # 7.4 k/cumm 2.0-9.0 GRANULOCYTE % 59 % 50-75 LYMPHOCYTE # 4.2 k/cumm 1.0-4.0 LYMPHOCYTE % 34 % 20-30 MEAN CELL HGB 30.2 pg 27.0-33.0 MEAN CELL HGB CONCENTRATION 33.3 g/dL 32.0-37.0 MEAN CELL VOLUME 90.7 fl 80.0-100.0 MONOCYTE # 0.8 k/cumm 0.1-1.0 MONOCYTE % 6 % 4-6 RED BLOOD CELL 4.43 m/cumm 4.00-6.00 RED CELL DISTRIBUTION WIDTH 13.6 % 11.0- 15.6 WHITE BLOOD CELL 12.5 k/cumm 5.0-10.0 HEMOGLOBIN 13.4 gm/dL 12.0-16.0 HEMATOCRIT 40.2 % 37.0-47.0 PLATELET COUNT 265 k/cumm 150-400 METABOLIC PANEL, BASIC - 05/01/12 22:42 POTASSIUM 3.8 mmol/L 3.5-5.3 EST GFR (MDRD) > 60 mL/min > 59 ANION GAP 12 mmol/L 5-15 EST CrCl (CG) > 60 mL/min > 59 GLUCOSE 74 mg/dL 70-99 CALCIUM 8.6 mg/dL 8.5-10.1 BLOOD UREA NITROGEN 4 mg/dL 7-20 CREATININE 0.9 mg/dL 0.6-1.0 SODIUM 142 mmol/L 135-148 CHLORIDE 103 mmol/L 98-110 CARBON DIOXIDE 27 mmol/L 21-32 HEPATIC FUNCTION PANEL - 05/01/12 22:42 BILI UNCONJUGATED 0.2 mg/dL 0.0-0.7 AST/SGOT 16 Units/L 10-37 ALT/SGPT 18 Units/L < 66 TOTAL PROTEIN 6.6 gm/dL 6.4-8.2 ALBUMIN 3.5 gm/dL 3.4-5.0 BILI TOTAL 0.2 mg/dL 0.0-1.0 ALKALINE PHOSPHATASE TOTAL 70 Units/L 50- 136 BILI CONJUGATED 0.0 mg/dL 0.0-0.3 URINALYSIS WITH MICROSCOPIC - 05/01/12 23:47 UA LEUKOCYTE ESTERASE DIPSTICK NEGATIVE NEGATIVE UA NITRITE DIPSTICK NEGATIVE NEGATIVE UA PROTEIN DIPSTICK NEGATIVE NEGATIVE UA GLUCOSE DIPSTICK NEGATIVE NEGATIVE UA KETONE DIPSTICK NEGATIVE NEGATIVE UA UROBILINOGEN DIPSTICK NORMAL NORMAL UA BILIRUBIN DIPSTICK NEGATIVE NEGATIVE UA BLOOD DIPSTICK NEGATIVE NEGATIVE UA EPITHELIAL CELLS 3+ epi/hpf 0 - 1+ UA RBC 0 rbc/hpf 0 - 3 UA VOLUME FOR EXAM 12.0 mL (12mL STD) UA WBC 0 wbc/hpf 0 - 5 UA SPECIFIC GRAVITY 1.015 1.015-1.025 UR PH 8.0 5.0-7.0 FIBRONECTIN - 10/19/12 18:40 FIBRONECTIN NEGATIVE NEGATIVE CBC W/DIFF - 11/21/12 07:45 EOSINOPHIL # 0.1 k/cumm 0.1-0.5 EOSINOPHIL % 1 % 2-4 GRANULOCYTE # 8.0 k/cumm 2.0-9.0 GRANULOCYTE % 70 % 50-75 LYMPHOCYTE # 2.7 k/cumm 1.0-4.0 LYMPHOCYTE % 23 % 20-30 MEAN CELL HGB 28.8 pg 27.0-33.0 MEAN CELL HGB CONCENTRATION 31.6 g/dL 32.0-37.0 MEAN CELL VOLUME 90.9 fl 80.0-100.0 MONOCYTE # 0.7 k/cumm 0.1-1.0 MONOCYTE % 6 % 4-6 RED BLOOD CELL 3.86 m/cumm 4.00-6.00 RED CELL DISTRIBUTION WIDTH 13.7 % 11.0- 15.6 WHITE BLOOD CELL 11.5 k/cumm 5.0-10.0 HEMOGLOBIN 11.1 gm/dL 12.0-16.0 HEMATOCRIT 35.1 % 37.0-47.0 PLATELET COUNT 274 k/cumm 150-400 AMYLASE - 11/21/12 07:45 AMYLASE 67 Units/L 25-115 LIPASE - 11/21/12 07:45 LIPASE 190 Units/L 73-393 METABOLIC PANEL, COMPREHN - 11/21/12 07:45 POTASSIUM 3.8 mmol/L 3.5-5.3 EST GFR (MDRD) > 60 mL/min > 59 ANION GAP 9 mmol/L 5-15 EST CrCl (CG) > 60 mL/min > 59 GLUCOSE 72 mg/dL 70-99 CALCIUM 8.4 mg/dL 8.5-10.1 BLOOD UREA NITROGEN 4 mg/dL 7-20 CREATININE 0.6 mg/dL 0.6-1.0 SODIUM 135 mmol/L 135-148 CHLORIDE 103 mmol/L 98-110 AST/SGOT 10 Units/L 10-37 ALT/SGPT 11 Units/L < 66 CARBON DIOXIDE 23 mmol/L 21-32 TOTAL PROTEIN 6.3 gm/dL 6.4-8.2 ALBUMIN 2.5 gm/dL 3.4-5.0 BILI TOTAL 0.2 mg/dL 0.0-1.0 ALKALINE PHOSPHATASE TOTAL 120 Units/L 50 -136 CORD ARTERIAL BLOOD GAS - 11/21/12 10:10 ARTERIAL CORD BLD BASE EXCESS -6.1 meq/L -7.6-1.3 COMMENT ARTERIAL ARTERIAL CORD BICARBONATE 24.0 meq/L 16.0 -27.1 ARTERIAL CORD BLOOD PCO2 69 mm Hg 32-69 ARTERIAL CORD BLOOD PH 7.16 7.14-7.40 ARTERIAL CORD BLOOD PO2 6.0 mm Hg 8-33 ARTERIAL CORD BLOOD O2 SAT < 15 % 5-59 CORD VENOUS BLOOD GAS - 11/21/12 10:10 VENOUS CORD BLOOD BASE EXCESS -6.7 meq/L -5.8-0.7 COMMENT VENOUS VENOUS CORD BLOOD HCO3 21.6 meq/L 17.4- 25.4 VENOUS CORD BLOOD PCO2 54 mm Hg 28-57 VENOUS CORD BLOOD PH 7.22 7.23-7.46 VENOUS CORD BLOOD PO2 18 mm Hg 15-42 VENOUS CORD BLOOD O2 SAT 33 % 14-75 HEMOGLOBIN - 11/21/12 14:40 MEAN CELL VOLUME 89.1 fl 80.0-100.0 HEMOGLOBIN 9.9 gm/dL 12.0-16.0 HEMOGLOBIN - 11/22/12 06:43 MEAN CELL VOLUME 90.0 fl 80.0-100.0 HEMOGLOBIN 8.5 gm/dL 12.0-16.0 Complete urinalysis with reflex to culture - 09/22/15 22:20 Urine color determination YELLOW NRG Urine clarity determination SLIGHTLY CLOUDY NRG Urine pH measurement by test strip 6 5- 9 Specific gravity of urine by test strip 1.015 1.016-1.022 Urine protein assay by test strip, semi-quantitative 1+ NEGATIVE Urine glucose detection by automated test strip NEGATIVE NEGATIVE Erythrocytes detection in urine sediment by light microscopy 1+ NEGATIVE Urine ketones detection by automated test strip 2+ NEGATIVE Urine nitrite detection by test strip NEGATIVE NEGATIVE Urine total bilirubin detection by test strip NEGATIVE NEGATIVE Urine urobilinogen measurement by automated test strip (mass/volume) 1 mg/dL NORMAL Urine leukocyte esterase detection by dipstick 1+ NEGATIVE Automated urine sediment erythrocyte count by microscopy (number/high power field) RARE NRG Automated urine sediment leukocyte count by microscopy (number/high power field ) [HPF] NRG Bacteria detection in urine sediment by light microscopy FEW NRG Squamous epithelial cells detection in urine sediment by light microscopy 25-50 NRG Crystals detection in urine sediment by light microscopy NONE NRG Casts detection in urine sediment by light microscopy NONE NRG Mucus detection in urine sediment by light microscopy LARGE NRG Complete urinalysis with reflex to culture NO NRG Complete blood count (CBC) with automated white blood cell (WBC) differential - 09/22/15 23:30 Blood leukocytes automated count (number/volume) 12.5 10*3/ uL 4.3-11.0 Blood erythrocytes automated count (number/volume) 4.03 10*6 /uL 4.35-5.85 Venous blood hemoglobin measurement (mass/volume) 11.6 g/dL 11.5-16.0 Blood hematocrit (volume fraction) 35 % 35-52 Automated erythrocyte mean corpuscular volume 87 [foz_us] 80-99 Automated erythrocyte mean corpuscular hemoglobin (mass per erythrocyte) 29 pg 25-34 Automated erythrocyte mean corpuscular hemoglobin concentration measurement ( mass/volume) 33 g/dL 32-36 Automated erythrocyte distribution width ratio 13.8 % 10.0-14.5 Automated blood platelet count (count/volume) 315 10*3/uL 130-400 Automated blood platelet mean volume measurement 10.5 [foz_ us] 7.4-10.4 Automated blood neutrophils/100 leukocytes 72 % 42-75 Automated blood lymphocytes/100 leukocytes 22 % 12-44 Blood monocytes/100 leukocytes 4 % 0-12 Automated blood eosinophils/100 leukocytes 1 % 0-10 Automated blood basophils/100 leukocytes 0 % 0-10 Blood neutrophils automated count (number/volume) 9.0 10*3 1.8-7.8 Blood lymphocytes automated count (number/volume) 2.8 10*3 1.0-4.0 Blood monocytes automated count (number/volume) 0.5 10*3 0.0-1.0 Automated eosinophil count 0.1 10*3/uL 0.0-0.3 Automated blood basophil count (count/volume) 0.0 10*3/uL 0.0-0.1 Comprehensive metabolic panel - 09/22/15 23:30 Serum or plasma sodium measurement (moles/volume) 137 mmol/ L 135-145 Serum or plasma potassium measurement (moles/volume) 3.6 mmol/L 3.6-5.0 Serum or plasma chloride measurement (moles/volume) 108 mmol /L 98-107 Carbon dioxide 17 mmol/L 21-32 Serum or plasma anion gap determination (moles/volume) 12 mmol/L 5-14 Serum or plasma urea nitrogen measurement (mass/volume) 4 mg /dL 7-18 Serum or plasma creatinine measurement (mass/volume) 0.60 mg /dL 0.60-1.30 Serum or plasma urea nitrogen/creatinine mass ratio 7 NRG Serum or plasma creatinine measurement with calculation of estimated glomerular filtration rate > NRG Serum or plasma glucose measurement (mass/volume) 79 mg/dL 70-105 Serum or plasma calcium measurement (mass/volume) 8.3 mg/dL 8.5-10.1 Serum or plasma total bilirubin measurement (mass/volume) 0.2 mg/dL 0.1-1.0 Serum or plasma alkaline phosphatase measurement (enzymatic activity/volume) 58 U/L 40-136 Serum or plasma aspartate aminotransferase measurement (enzymatic activity/ volume) 23 U/L 5-34 Serum or plasma alanine aminotransferase measurement (enzymatic activity/volume ) 17 U/L 0-55 Serum or plasma protein measurement (mass/volume) 6.1 g/dL 6.4-8.2 Serum or plasma albumin measurement (mass/volume) 3.4 g/dL 3.2-4.5 Complete urinalysis with reflex to culture - 10/15/15 23:55 Urine color determination YELLOW NRG Urine clarity determination CLEAR NRG Urine pH measurement by test strip 7 5- 9 Specific gravity of urine by test strip 1.005 1.016-1.022 Urine protein assay by test strip, semi-quantitative NEGATIVE NEGATIVE Urine glucose detection by automated test strip NEGATIVE NEGATIVE Erythrocytes detection in urine sediment by light microscopy NEGATIVE NEGATIVE Urine ketones detection by automated test strip 2+ NEGATIVE Urine nitrite detection by test strip NEGATIVE NEGATIVE Urine total bilirubin detection by test strip NEGATIVE NEGATIVE Urine urobilinogen measurement by automated test strip (mass/volume) NORMAL NORMAL Urine leukocyte esterase detection by dipstick NEGATIVE NEGATIVE Automated urine sediment erythrocyte count by microscopy (number/high power field) NONE NRG Automated urine sediment leukocyte count by microscopy (number/high power field ) NONE NRG Bacteria detection in urine sediment by light microscopy NEGATIVE NRG Squamous epithelial cells detection in urine sediment by light microscopy 2-5 NRG Crystals detection in urine sediment by light microscopy NONE NRG Casts detection in urine sediment by light microscopy NONE NRG Mucus detection in urine sediment by light microscopy NEGATIVE NRG Complete urinalysis with reflex to culture NO NRG Complete blood count (CBC) with automated white blood cell (WBC) differential - 10/20/15 23:10 Blood leukocytes automated count (number/volume) 13.5 10*3/ uL 4.3-11.0 Blood erythrocytes automated count (number/volume) 3.59 10*6 /uL 4.35-5.85 Venous blood hemoglobin measurement (mass/volume) 10.5 g/dL 11.5-16.0 Blood hematocrit (volume fraction) 32 % 35-52 Automated erythrocyte mean corpuscular volume 88 [foz_us] 80-99 Automated erythrocyte mean corpuscular hemoglobin (mass per erythrocyte) 29 pg 25-34 Automated erythrocyte mean corpuscular hemoglobin concentration measurement ( mass/volume) 33 g/dL 32-36 Automated erythrocyte distribution width ratio 13.5 % 10.0-14.5 Automated blood platelet count (count/volume) 318 10*3/uL 130-400 Automated blood platelet mean volume measurement 10.3 [foz_ us] 7.4-10.4 Automated blood neutrophils/100 leukocytes 66 % 42-75 Automated blood lymphocytes/100 leukocytes 29 % 12-44 Blood monocytes/100 leukocytes 5 % 0-12 Automated blood eosinophils/100 leukocytes 0 % 0-10 Automated blood basophils/100 leukocytes 0 % 0-10 Blood neutrophils automated count (number/volume) 8.8 10*3 1.8-7.8 Blood lymphocytes automated count (number/volume) 3.9 10*3 1.0-4.0 Blood monocytes automated count (number/volume) 0.7 10*3 0.0-1.0 Automated eosinophil count 0.1 10*3/uL 0.0-0.3 Automated blood basophil count (count/volume) 0.0 10*3/uL 0.0-0.1 Whole blood basic metabolic panel - 10/20/15 23:10 Serum or plasma sodium measurement (moles/volume) 138 mmol/ L 135-145 Serum or plasma potassium measurement (moles/volume) 3.2 mmol/L 3.6-5.0 Serum or plasma chloride measurement (moles/volume) 108 mmol /L 98-107 Carbon dioxide 17 mmol/L 21-32 Serum or plasma anion gap determination (moles/volume) 13 mmol/L 5-14 Serum or plasma urea nitrogen measurement (mass/volume) 8 mg /dL 7-18 Serum or plasma creatinine measurement (mass/volume) 0.60 mg /dL 0.60-1.30 Serum or plasma urea nitrogen/creatinine mass ratio 13 NRG Serum or plasma creatinine measurement with calculation of estimated glomerular filtration rate > NRG Serum or plasma glucose measurement (mass/volume) 115 mg/dL 70-105 Serum or plasma calcium measurement (mass/volume) 8.1 mg/dL 8.5-10.1 Blood lactic acid measurement (moles/volume) - 10/20/15 23:45 Blood lactic acid measurement (moles/volume) 2.6 mmol/L 0.5-2.0 Influenza virus A and B antigen detection - 10/20/15 23:45 FLU RESULT NEGATIVE FOR INFLUENZA A AND B ANTIGENS BY IA [facility] Bacterial blood culture - 10/20/15 23:45 FREE TEXT EXTERNAL SEE COMMENT NRG QUANTITY OF GROWTH Isolated [facility] Bacterial blood culture [id number] [facility] Bacterial blood culture - 10/21/15 00:18 Bacterial blood culture NG [facility] Serum or plasma lactate measurement (moles/volume) - 10/21/15 02:03 Serum or plasma lactate measurement (moles/volume) 2.8 mmol/ L 0.5-2.0 Complete blood count (CBC) with automated white blood cell (WBC) differential - 10/21/15 06:26 Blood leukocytes automated count (number/volume) 15.3 10*3/ uL 4.3-11.0 Blood erythrocytes automated count (number/volume) 3.45 10*6 /uL 4.35-5.85 Venous blood hemoglobin measurement (mass/volume) 9.9 g/dL 11.5-16.0 Blood hematocrit (volume fraction) 30 % 35-52 Automated erythrocyte mean corpuscular volume 88 [foz_us] 80-99 Automated erythrocyte mean corpuscular hemoglobin (mass per erythrocyte) 29 pg 25-34 Automated erythrocyte mean corpuscular hemoglobin concentration measurement ( mass/volume) 33 g/dL 32-36 Automated erythrocyte distribution width ratio 13.6 % 10.0-14.5 Automated blood platelet count (count/volume) 306 10*3/uL 130-400 Automated blood platelet mean volume measurement 10.6 [foz_ us] 7.4-10.4 Automated blood neutrophils/100 leukocytes 85 % 42-75 Automated blood lymphocytes/100 leukocytes 12 % 12-44 Blood monocytes/100 leukocytes 3 % 0-12 Automated blood eosinophils/100 leukocytes 0 % 0-10 Automated blood basophils/100 leukocytes 0 % 0-10 Blood neutrophils automated count (number/volume) 13.0 10*3 1.8-7.8 Blood lymphocytes automated count (number/volume) 1.9 10*3 1.0-4.0 Blood monocytes automated count (number/volume) 0.4 10*3 0.0-1.0 Automated eosinophil count 0.0 10*3/uL 0.0-0.3 Automated blood basophil count (count/volume) 0.0 10*3/uL 0.0-0.1 Blood manual differential performed detection - 10/21/15 06:26 Blood monocytes/100 leukocytes 1 % NRG Manual blood segmented neutrophils/100 leukocytes 79 % NRG Blood band neutrophils/100 leukocytes 5 % NRG Manual blood lymphocytes/100 leukocytes 15 % NRG Manual eosinophils/100 leukocytes in nose 0 % NRG Manual blood basophils/100 leukocytes 0 % NRG Blood erythrocyte morphology finding identification NORMAL NRG Blood lactic acid measurement (moles/volume) - 10/21/15 11:56 Blood lactic acid measurement (moles/volume) 2.7 mmol/L 0.5-2.0 Serum or plasma lactate measurement (moles/volume) - 10/21/15 13:57 Serum or plasma lactate measurement (moles/volume) 3.9 mmol/ L 0.5-2.0 Complete blood count (CBC) with automated white blood cell (WBC) differential - 10/22/15 05:06 Blood leukocytes automated count (number/volume) 20.7 10*3/ uL 4.3-11.0 Blood erythrocytes automated count (number/volume) 3.26 10*6 /uL 4.35-5.85 Venous blood hemoglobin measurement (mass/volume) 9.6 g/dL 11.5-16.0 Blood hematocrit (volume fraction) 29 % 35-52 Automated erythrocyte mean corpuscular volume 89 [foz_us] 80-99 Automated erythrocyte mean corpuscular hemoglobin (mass per erythrocyte) 29 pg 25-34 Automated erythrocyte mean corpuscular hemoglobin concentration measurement ( mass/volume) 33 g/dL 32-36 Automated erythrocyte distribution width ratio 13.6 % 10.0-14.5 Automated blood platelet count (count/volume) 295 10*3/uL 130-400 Automated blood platelet mean volume measurement 10.2 [foz_ us] 7.4-10.4 Automated blood neutrophils/100 leukocytes 85 % 42-75 Automated blood lymphocytes/100 leukocytes 11 % 12-44 Blood monocytes/100 leukocytes 4 % 0-12 Automated blood eosinophils/100 leukocytes 0 % 0-10 Automated blood basophils/100 leukocytes 0 % 0-10 Blood neutrophils automated count (number/volume) 17.6 10*3 1.8-7.8 Blood lymphocytes automated count (number/volume) 2.2 10*3 1.0-4.0 Blood monocytes automated count (number/volume) 0.8 10*3 0.0-1.0 Automated eosinophil count 0.0 10*3/uL 0.0-0.3 Automated blood basophil count (count/volume) 0.0 10*3/uL 0.0-0.1 Blood lactic acid measurement (moles/volume) - 10/22/15 05:06 Blood lactic acid measurement (moles/volume) 4.1 mmol/L 0.5-2.0 Whole blood basic metabolic panel - 10/22/15 05:06 Serum or plasma sodium measurement (moles/volume) 138 mmol/ L 135-145 Serum or plasma potassium measurement (moles/volume) 4.1 mmol/L 3.6-5.0 Serum or plasma chloride measurement (moles/volume) 112 mmol /L 98-107 Carbon dioxide 12 mmol/L 21-32 Serum or plasma anion gap determination (moles/volume) 14 mmol/L 5-14 Serum or plasma urea nitrogen measurement (mass/volume) 6 mg /dL 7-18 Serum or plasma creatinine measurement (mass/volume) 0.57 mg /dL 0.60-1.30 Serum or plasma urea nitrogen/creatinine mass ratio 11 NRG Serum or plasma creatinine measurement with calculation of estimated glomerular filtration rate > NRG Serum or plasma glucose measurement (mass/volume) 130 mg/dL 70-105 Serum or plasma calcium measurement (mass/volume) 7.6 mg/dL 8.5-10.1 Blood manual differential performed detection - 10/22/15 05:06 Blood monocytes/100 leukocytes 1 % NRG Manual blood segmented neutrophils/100 leukocytes 86 % NRG Blood band neutrophils/100 leukocytes 0 % NRG Manual blood lymphocytes/100 leukocytes 13 % NRG Manual eosinophils/100 leukocytes in nose 0 % NRG Manual blood basophils/100 leukocytes 0 % NRG Blood erythrocyte morphology finding identification NORMAL NRG Serum or plasma lactate measurement (moles/volume) - 10/22/15 07:12 Serum or plasma lactate measurement (moles/volume) 4.1 mmol/ L 0.5-2.0 Blood lactic acid measurement (moles/volume) - 10/22/15 14:10 Blood lactic acid measurement (moles/volume) 4.1 mmol/L 0.5-2.0 Blood lactic acid measurement (moles/volume) - 10/22/15 19:15 Blood lactic acid measurement (moles/volume) 4.6 mmol/L 0.5-2.0 Arterial blood gas measurement - 10/22/15 21:30 Blood pCO2 26 mm[Hg] 35-45 Blood pO2 81 mm[Hg] 79-93 Arterial blood bicarbonate measurement (moles/volume) 17 mmol/L 23-27 Arterial blood base excess by calculation -6.1 mmol/L -2.5-2.5 Arterial blood oxygen saturation measurement 97 % 94-100 * Inhaled oxygen flow rate ROOM AIR NRG Arterial blood pH measurement with patient temperature correction 7.43 7.37-7.43 Arterial blood carbon dioxide, total measurement (moles/volume) 17.9 mmol/L 21.0-31.0 Body site LT RADIAL NRG Assessment of wrist artery patency prior to arterial puncture YES-POS NRG Setting of ventilation mode NO NRG Measurement of body temperature 98.2 NRG Complete urinalysis with reflex to culture - 10/22/15 23:29 Urine color determination YELLOW NRG Urine clarity determination CLEAR NRG Urine pH measurement by test strip 7 5- 9 Specific gravity of urine by test strip 1.010 1.016-1.022 Urine protein assay by test strip, semi-quantitative NEGATIVE NEGATIVE Urine glucose detection by automated test strip NEGATIVE NEGATIVE Erythrocytes detection in urine sediment by light microscopy 3+ NEGATIVE Urine ketones detection by automated test strip NEGATIVE NEGATIVE Urine nitrite detection by test strip NEGATIVE NEGATIVE Urine total bilirubin detection by test strip NEGATIVE NEGATIVE Urine urobilinogen measurement by automated test strip (mass/volume) NORMAL NORMAL Urine leukocyte esterase detection by dipstick NEGATIVE NEGATIVE Automated urine sediment erythrocyte count by microscopy (number/high power field) [HPF] NRG Automated urine sediment leukocyte count by microscopy (number/high power field ) NONE NRG Bacteria detection in urine sediment by light microscopy NEGATIVE NRG Squamous epithelial cells detection in urine sediment by light microscopy >50 NRG Crystals detection in urine sediment by light microscopy NONE NRG Casts detection in urine sediment by light microscopy NONE NRG Mucus detection in urine sediment by light microscopy NEGATIVE NRG Complete urinalysis with reflex to culture NO NRG Complete blood count (CBC) with automated white blood cell (WBC) differential - 10/23/15 04:39 Blood leukocytes automated count (number/volume) 18.1 10*3/ uL 4.3-11.0 Blood erythrocytes automated count (number/volume) 3.18 10*6 /uL 4.35-5.85 Venous blood hemoglobin measurement (mass/volume) 9.2 g/dL 11.5-16.0 Blood hematocrit (volume fraction) 28 % 35-52 Automated erythrocyte mean corpuscular volume 89 [foz_us] 80-99 Automated erythrocyte mean corpuscular hemoglobin (mass per erythrocyte) 29 pg 25-34 Automated erythrocyte mean corpuscular hemoglobin concentration measurement ( mass/volume) 33 g/dL 32-36 Automated erythrocyte distribution width ratio 13.9 % 10.0-14.5 Automated blood platelet count (count/volume) 305 10*3/uL 130-400 Automated blood platelet mean volume measurement 10.4 [foz_ us] 7.4-10.4 Automated blood neutrophils/100 leukocytes 82 % 42-75 Automated blood lymphocytes/100 leukocytes 13 % 12-44 Blood monocytes/100 leukocytes 5 % 0-12 Automated blood eosinophils/100 leukocytes 0 % 0-10 Automated blood basophils/100 leukocytes 0 % 0-10 Blood neutrophils automated count (number/volume) 14.8 10*3 1.8-7.8 Blood lymphocytes automated count (number/volume) 2.3 10*3 1.0-4.0 Blood monocytes automated count (number/volume) 1.0 10*3 0.0-1.0 Automated eosinophil count 0.0 10*3/uL 0.0-0.3 Automated blood basophil count (count/volume) 0.0 10*3/uL 0.0-0.1 Blood lactic acid measurement (moles/volume) - 10/23/15 04:39 Blood lactic acid measurement (moles/volume) 4.3 mmol/L 0.5-2.0 Whole blood basic metabolic panel - 10/23/15 04:39 Serum or plasma sodium measurement (moles/volume) 137 mmol/ L 135-145 Serum or plasma potassium measurement (moles/volume) 3.8 mmol/L 3.6-5.0 Serum or plasma chloride measurement (moles/volume) 111 mmol /L 98-107 Carbon dioxide 13 mmol/L 21-32 Serum or plasma anion gap determination (moles/volume) 13 mmol/L 5-14 Serum or plasma urea nitrogen measurement (mass/volume) 8 mg /dL 7-18 Serum or plasma creatinine measurement (mass/volume) 0.60 mg /dL 0.60-1.30 Serum or plasma urea nitrogen/creatinine mass ratio 13 NRG Serum or plasma creatinine measurement with calculation of estimated glomerular filtration rate > NRG Serum or plasma glucose measurement (mass/volume) 114 mg/dL 70-105 Serum or plasma calcium measurement (mass/volume) 7.9 mg/dL 8.5-10.1 Magnesium - 10/23/15 04:39 Magnesium 1.9 mg/dL 1.8-2.4 Blood lactic acid measurement (moles/volume) - 10/23/15 12:00 Blood lactic acid measurement (moles/volume) 3.3 mmol/L 0.5-2.0 Capillary blood glucose measurement by glucometer (mass/volume) - 10/23/15 12: 32 Capillary blood glucose measurement by glucometer (mass/volume) 105 mg/dL 70-110 Blood lactic acid measurement (moles/volume) - 10/23/15 18:09 Blood lactic acid measurement (moles/volume) 3.4 mmol/L 0.5-2.0 Capillary blood glucose measurement by glucometer (mass/volume) - 10/23/15 23: 33 Capillary blood glucose measurement by glucometer (mass/volume) 94 mg/dL 70-110 Blood lactic acid measurement (moles/volume) - 10/24/15 00:22 Blood lactic acid measurement (moles/volume) 3.8 mmol/L 0.5-2.0 Complete blood count (CBC) with automated white blood cell (WBC) differential - 10/24/15 06:32 Blood leukocytes automated count (number/volume) 18.2 10*3/ uL 4.3-11.0 Blood erythrocytes automated count (number/volume) 3.10 10*6 /uL 4.35-5.85 Venous blood hemoglobin measurement (mass/volume) 9.0 g/dL 11.5-16.0 Blood hematocrit (volume fraction) 27 % 35-52 Automated erythrocyte mean corpuscular volume 88 [foz_us] 80-99 Automated erythrocyte mean corpuscular hemoglobin (mass per erythrocyte) 29 pg 25-34 Automated erythrocyte mean corpuscular hemoglobin concentration measurement ( mass/volume) 33 g/dL 32-36 Automated erythrocyte distribution width ratio 14.2 % 10.0-14.5 Automated blood platelet count (count/volume) 305 10*3/uL 130-400 Automated blood platelet mean volume measurement 10.0 [foz_ us] 7.4-10.4 Automated blood neutrophils/100 leukocytes 68 % 42-75 Automated blood lymphocytes/100 leukocytes 26 % 12-44 Blood monocytes/100 leukocytes 6 % 0-12 Automated blood eosinophils/100 leukocytes 0 % 0-10 Automated blood basophils/100 leukocytes 0 % 0-10 Blood neutrophils automated count (number/volume) 12.4 10*3 1.8-7.8 Blood lymphocytes automated count (number/volume) 4.7 10*3 1.0-4.0 Blood monocytes automated count (number/volume) 1.1 10*3 0.0-1.0 Automated eosinophil count 0.1 10*3/uL 0.0-0.3 Automated blood basophil count (count/volume) 0.0 10*3/uL 0.0-0.1 Whole blood basic metabolic panel - 10/24/15 06:32 Serum or plasma sodium measurement (moles/volume) 138 mmol/ L 135-145 Serum or plasma potassium measurement (moles/volume) 3.7 mmol/L 3.6-5.0 Serum or plasma chloride measurement (moles/volume) 110 mmol /L 98-107 Carbon dioxide 15 mmol/L 21-32 Serum or plasma anion gap determination (moles/volume) 13 mmol/L 5-14 Serum or plasma urea nitrogen measurement (mass/volume) 7 mg /dL 7-18 Serum or plasma creatinine measurement (mass/volume) 0.58 mg /dL 0.60-1.30 Serum or plasma urea nitrogen/creatinine mass ratio 12 NRG Serum or plasma creatinine measurement with calculation of estimated glomerular filtration rate > NRG Serum or plasma glucose measurement (mass/volume) 78 mg/dL 70-105 Serum or plasma calcium measurement (mass/volume) 7.4 mg/dL 8.5-10.1 Serum or plasma phosphate measurement (mass/volume) - 10/24/15 06:32 Serum or plasma phosphate measurement (mass/volume) 2.4 mg/ dL 2.3-4.7 Magnesium - 10/24/15 06:32 Magnesium 2.0 mg/dL 1.8-2.4 Blood lactic acid measurement (moles/volume) - 10/24/15 06:32 Blood lactic acid measurement (moles/volume) 3.5 mmol/L 0.5-2.0 Clostridium difficile detection - 10/24/15 10:00 C DIFF MOLECULAR RESULT Negative for toxigenic C diff by DNA amplification NR Capillary blood glucose measurement by glucometer (mass/volume) - 10/24/15 12: 44 Capillary blood glucose measurement by glucometer (mass/volume) 78 mg/dL 70-110 Blood lactic acid measurement (moles/volume) - 10/24/15 14:28 Blood lactic acid measurement (moles/volume) 2.4 mmol/L 0.5-2.0 Blood lactic acid measurement (moles/volume) - 10/24/15 21:20 Blood lactic acid measurement (moles/volume) 2.4 mmol/L 0.5-2.0 Comprehensive metabolic panel - 10/25/15 06:30 Serum or plasma sodium measurement (moles/volume) 137 mmol/ L 135-145 Serum or plasma potassium measurement (moles/volume) 3.7 mmol/L 3.6-5.0 Serum or plasma chloride measurement (moles/volume) 109 mmol /L 98-107 Carbon dioxide 16 mmol/L 21-32 Serum or plasma anion gap determination (moles/volume) 12 mmol/L 5-14 Serum or plasma urea nitrogen measurement (mass/volume) 5 mg /dL 7-18 Serum or plasma creatinine measurement (mass/volume) 0.53 mg /dL 0.60-1.30 Serum or plasma urea nitrogen/creatinine mass ratio 9 NRG Serum or plasma creatinine measurement with calculation of estimated glomerular filtration rate > NRG Serum or plasma glucose measurement (mass/volume) 80 mg/dL 70-105 Serum or plasma calcium measurement (mass/volume) 8.2 mg/dL 8.5-10.1 Serum or plasma total bilirubin measurement (mass/volume) 0.3 mg/dL 0.1-1.0 Serum or plasma alkaline phosphatase measurement (enzymatic activity/volume) 51 U/L 40-136 Serum or plasma aspartate aminotransferase measurement (enzymatic activity/ volume) 18 U/L 5-34 Serum or plasma alanine aminotransferase measurement (enzymatic activity/volume ) 36 U/L 0-55 Serum or plasma protein measurement (mass/volume) 5.1 g/dL 6.4-8.2 Serum or plasma albumin measurement (mass/volume) 2.9 g/dL 3.2-4.5 Serum or plasma uric acid measurement (mass/volume) - 10/25/15 06:30 Serum or plasma uric acid measurement (mass/volume) 3.3 mg/ dL 2.6-7.2 Lactate dehydrogenase 1 [enzymatic activity/volume] in serum or plasma - 06:30 Lactate dehydrogenase 1 [enzymatic activity/volume] in serum or plasma 192 U/L 125-220 Serum or plasma amylase measurement (enzymatic activity/volume) - 10/25/15 06: 30 Serum or plasma amylase measurement (enzymatic activity/volume) 41 U/L 25-125 Lipase - 10/25/15 06:30 Lipase 16 U/L 8-78 Complete blood count (CBC) with automated white blood cell (WBC) differential - 10/25/15 06:46 Blood leukocytes automated count (number/volume) 15.4 10*3/ uL 4.3-11.0 Blood erythrocytes automated count (number/volume) 3.28 10*6 /uL 4.35-5.85 Venous blood hemoglobin measurement (mass/volume) 9.5 g/dL 11.5-16.0 Blood hematocrit (volume fraction) 29 % 35-52 Automated erythrocyte mean corpuscular volume 88 [foz_us] 80-99 Automated erythrocyte mean corpuscular hemoglobin (mass per erythrocyte) 29 pg 25-34 Automated erythrocyte mean corpuscular hemoglobin concentration measurement ( mass/volume) 33 g/dL 32-36 Automated erythrocyte distribution width ratio 14.4 % 10.0-14.5 Automated blood platelet count (count/volume) 299 10*3/uL 130-400 Automated blood platelet mean volume measurement 9.8 [foz_us ] 7.4-10.4 Automated blood neutrophils/100 leukocytes 73 % 42-75 Automated blood lymphocytes/100 leukocytes 23 % 12-44 Blood monocytes/100 leukocytes 3 % 0-12 Automated blood eosinophils/100 leukocytes 1 % 0-10 Automated blood basophils/100 leukocytes 0 % 0-10 Blood neutrophils automated count (number/volume) 11.2 10*3 1.8-7.8 Blood lymphocytes automated count (number/volume) 3.5 10*3 1.0-4.0 Blood monocytes automated count (number/volume) 0.5 10*3 0.0-1.0 Automated eosinophil count 0.2 10*3/uL 0.0-0.3 Automated blood basophil count (count/volume) 0.0 10*3/uL 0.0-0.1 Blood lactic acid measurement (moles/volume) - 10/25/15 06:46 Blood lactic acid measurement (moles/volume) 3.1 mmol/L 0.5-2.0 Whole blood basic metabolic panel - 10/25/15 06:46 Serum or plasma sodium measurement (moles/volume) 137 mmol/ L 135-145 Serum or plasma potassium measurement (moles/volume) 3.7 mmol/L 3.6-5.0 Serum or plasma chloride measurement (moles/volume) 109 mmol /L 98-107 Carbon dioxide 16 mmol/L 21-32 Serum or plasma anion gap determination (moles/volume) 12 mmol/L 5-14 Serum or plasma urea nitrogen measurement (mass/volume) 6 mg /dL 7-18 Serum or plasma creatinine measurement (mass/volume) 0.54 mg /dL 0.60-1.30 Serum or plasma urea nitrogen/creatinine mass ratio 11 NRG Serum or plasma creatinine measurement with calculation of estimated glomerular filtration rate > NRG Serum or plasma glucose measurement (mass/volume) 80 mg/dL 70-105 Serum or plasma calcium measurement (mass/volume) 7.8 mg/dL 8.5-10.1 Serum or plasma phosphate measurement (mass/volume) - 10/25/15 06:46 Serum or plasma phosphate measurement (mass/volume) 3.1 mg/ dL 2.3-4.7 Magnesium - 10/25/15 06:46 Magnesium 1.8 mg/dL 1.8-2.4 Complete urinalysis with reflex to culture - 10/25/15 10:29 Urine color determination YELLOW NRG Urine clarity determination CLEAR NRG Urine pH measurement by test strip 7 5- 9 Specific gravity of urine by test strip 1.010 1.016-1.022 Urine protein assay by test strip, semi-quantitative NEGATIVE NEGATIVE Urine glucose detection by automated test strip NEGATIVE NEGATIVE Erythrocytes detection in urine sediment by light microscopy NEGATIVE NEGATIVE Urine ketones detection by automated test strip NEGATIVE NEGATIVE Urine nitrite detection by test strip NEGATIVE NEGATIVE Urine total bilirubin detection by test strip NEGATIVE NEGATIVE Urine urobilinogen measurement by automated test strip (mass/volume) NORMAL NORMAL Urine leukocyte esterase detection by dipstick 2+ NEGATIVE Automated urine sediment erythrocyte count by microscopy (number/high power field) NONE NRG Automated urine sediment leukocyte count by microscopy (number/high power field ) [HPF] NRG Bacteria detection in urine sediment by light microscopy FEW NRG Squamous epithelial cells detection in urine sediment by light microscopy 2-5 NRG Crystals detection in urine sediment by light microscopy NONE NRG Casts detection in urine sediment by light microscopy NONE NRG Mucus detection in urine sediment by light microscopy NEGATIVE NRG Complete urinalysis with reflex to culture YES NRG Bacterial urine culture - 10/25/15 10:29 Bacterial urine culture [id number] NRG COLONY COUNT <10,000 NRG Automated blood complete blood count (hemogram) panel - 11/12/15 17:10 Blood leukocytes automated count (number/volume) 12.7 10*3/ uL 4.3-11.0 Blood erythrocytes automated count (number/volume) 2.71 10*6 /uL 4.35-5.85 Venous blood hemoglobin measurement (mass/volume) 7.5 g/dL 11.5-16.0 Blood hematocrit (volume fraction) 24 % 35-52 Automated erythrocyte mean corpuscular volume 89 [foz_us] 80-99 Automated erythrocyte mean corpuscular hemoglobin (mass per erythrocyte) 28 pg 25-34 Automated erythrocyte mean corpuscular hemoglobin concentration measurement ( mass/volume) 31 g/dL 32-36 Automated erythrocyte distribution width ratio 14.3 % 10.0-14.5 Automated blood platelet count (count/volume) 447 10*3/uL 130-400 Automated blood platelet mean volume measurement 9.5 [foz_us ] 7.4-10.4 Comprehensive metabolic panel - 11/12/15 17:10 Serum or plasma sodium measurement (moles/volume) 137 mmol/ L 135-145 Serum or plasma potassium measurement (moles/volume) 4.0 mmol/L 3.6-5.0 Serum or plasma chloride measurement (moles/volume) 108 mmol /L 98-107 Carbon dioxide 19 mmol/L 21-32 Serum or plasma anion gap determination (moles/volume) 10 mmol/L 5-14 Serum or plasma urea nitrogen measurement (mass/volume) 3 mg /dL 7-18 Serum or plasma creatinine measurement (mass/volume) 0.53 mg /dL 0.60-1.30 Serum or plasma urea nitrogen/creatinine mass ratio 6 NRG Serum or plasma creatinine measurement with calculation of estimated glomerular filtration rate > NRG Serum or plasma glucose measurement (mass/volume) 75 mg/dL 70-105 Serum or plasma calcium measurement (mass/volume) 8.6 mg/dL 8.5-10.1 Serum or plasma total bilirubin measurement (mass/volume) 0.1 mg/dL 0.1-1.0 Serum or plasma alkaline phosphatase measurement (enzymatic activity/volume) 73 U/L 40-136 Serum or plasma aspartate aminotransferase measurement (enzymatic activity/ volume) 11 U/L 5-34 Serum or plasma alanine aminotransferase measurement (enzymatic activity/volume ) 12 U/L 0-55 Serum or plasma protein measurement (mass/volume) 5.6 g/dL 6.4-8.2 Serum or plasma albumin measurement (mass/volume) 3.0 g/dL 3.2-4.5 Complete urinalysis with reflex to culture - 11/17/15 16:30 Urine color determination YELLOW NRG Urine clarity determination CLEAR NRG Urine pH measurement by test strip 7 5- 9 Specific gravity of urine by test strip 1.010 1.016-1.022 Urine protein assay by test strip, semi-quantitative NEGATIVE NEGATIVE Urine glucose detection by automated test strip NEGATIVE NEGATIVE Erythrocytes detection in urine sediment by light microscopy NEGATIVE NEGATIVE Urine ketones detection by automated test strip NEGATIVE NEGATIVE Urine nitrite detection by test strip NEGATIVE NEGATIVE Urine total bilirubin detection by test strip NEGATIVE NEGATIVE Urine urobilinogen measurement by automated test strip (mass/volume) NORMAL NORMAL Urine leukocyte esterase detection by dipstick NEGATIVE NEGATIVE Automated urine sediment erythrocyte count by microscopy (number/high power field) NONE NRG Automated urine sediment leukocyte count by microscopy (number/high power field ) RARE NRG Bacteria detection in urine sediment by light microscopy TRACE NRG Squamous epithelial cells detection in urine sediment by light microscopy 0-2 NRG Crystals detection in urine sediment by light microscopy NONE NRG Casts detection in urine sediment by light microscopy NONE NRG Mucus detection in urine sediment by light microscopy NEGATIVE NRG Complete urinalysis with reflex to culture NO NRG Complete urinalysis with reflex to culture - 12/08/15 21:10 Urine color determination YELLOW NRG Urine clarity determination SLIGHTLY CLOUDY NRG Urine pH measurement by test strip 6 5- 9 Specific gravity of urine by test strip 1.020 1.016-1.022 Urine protein assay by test strip, semi-quantitative NEGATIVE NEGATIVE Urine glucose detection by automated test strip NEGATIVE NEGATIVE Erythrocytes detection in urine sediment by light microscopy NEGATIVE NEGATIVE Urine ketones detection by automated test strip NEGATIVE NEGATIVE Urine nitrite detection by test strip NEGATIVE NEGATIVE Urine total bilirubin detection by test strip NEGATIVE NEGATIVE Urine urobilinogen measurement by automated test strip (mass/volume) NORMAL NORMAL Urine leukocyte esterase detection by dipstick NEGATIVE NEGATIVE Automated urine sediment erythrocyte count by microscopy (number/high power field) NONE NRG Automated urine sediment leukocyte count by microscopy (number/high power field ) RARE NRG Bacteria detection in urine sediment by light microscopy NONE NRG Squamous epithelial cells detection in urine sediment by light microscopy 10-25 NRG Crystals detection in urine sediment by light microscopy NONE NRG Casts detection in urine sediment by light microscopy NONE NRG Mucus detection in urine sediment by light microscopy NEGATIVE NRG Complete urinalysis with reflex to culture NO NRG Urine protein/creatinine mass ratio - 12/30/15 11:00 Urine protein measurement (mass/volume) 48 mg/dL 6-12 Urine creatinine measurement (mass/volume) 317 mg/dL 30-125 Urine protein/creatinine mass ratio 0.15 NRG Methicillin resistant Staphylococcus aureus (MRSA) screening culture - 12:40 Methicillin resistant Staphylococcus aureus (MRSA) screening culture NEG NRG Urine protein/creatinine mass ratio - 01/04/16 17:26 Urine protein measurement (mass/volume) 20 mg/dL 6-12 Urine creatinine measurement (mass/volume) 110 mg/dL 30-125 Urine protein/creatinine mass ratio 0.18 NRG Complete blood count (CBC) with automated white blood cell (WBC) differential - 01/06/16 06:30 Blood leukocytes automated count (number/volume) 14.9 10*3/ uL 4.3-11.0 Blood erythrocytes automated count (number/volume) 3.83 10*6 /uL 4.35-5.85 Venous blood hemoglobin measurement (mass/volume) 10.4 g/dL 11.5-16.0 Blood hematocrit (volume fraction) 33 % 35-52 Automated erythrocyte mean corpuscular volume 87 [foz_us] 80-99 Automated erythrocyte mean corpuscular hemoglobin (mass per erythrocyte) 27 pg 25-34 Automated erythrocyte mean corpuscular hemoglobin concentration measurement ( mass/volume) 31 g/dL 32-36 Automated erythrocyte distribution width ratio 16.0 % 10.0-14.5 Automated blood platelet count (count/volume) 341 10*3/uL 130-400 Automated blood platelet mean volume measurement 10.6 [foz_ us] 7.4-10.4 Automated blood neutrophils/100 leukocytes 75 % 42-75 Automated blood lymphocytes/100 leukocytes 19 % 12-44 Blood monocytes/100 leukocytes 6 % 0-12 Automated blood eosinophils/100 leukocytes 0 % 0-10 Automated blood basophils/100 leukocytes 0 % 0-10 Blood neutrophils automated count (number/volume) 11.2 10*3 1.8-7.8 Blood lymphocytes automated count (number/volume) 2.8 10*3 1.0-4.0 Blood monocytes automated count (number/volume) 0.9 10*3 0.0-1.0 Automated eosinophil count 0.1 10*3/uL 0.0-0.3 Automated blood basophil count (count/volume) 0.0 10*3/uL 0.0-0.1 Blood type T Indirect antibody screen panel - 01/06/16 06:30 ABO+Rh group AP NRG Transfusion band number [id number] NR Blood group antibody screen NEGATIVE NR Complete blood count (CBC) with automated white blood cell (WBC) differential - 01/07/16 05:24 Blood leukocytes automated count (number/volume) 13.8 10*3/ uL 4.3-11.0 Blood erythrocytes automated count (number/volume) 3.21 10*6 /uL 4.35-5.85 Venous blood hemoglobin measurement (mass/volume) 8.7 g/dL 11.5-16.0 Blood hematocrit (volume fraction) 28 % 35-52 Automated erythrocyte mean corpuscular volume 89 [foz_us] 80-99 Automated erythrocyte mean corpuscular hemoglobin (mass per erythrocyte) 27 pg 25-34 Automated erythrocyte mean corpuscular hemoglobin concentration measurement ( mass/volume) 31 g/dL 32-36 Automated erythrocyte distribution width ratio 16.0 % 10.0-14.5 Automated blood platelet count (count/volume) 286 10*3/uL 130-400 Automated blood platelet mean volume measurement 10.7 [foz_ us] 7.4-10.4 Automated blood neutrophils/100 leukocytes 72 % 42-75 Automated blood lymphocytes/100 leukocytes 22 % 12-44 Blood monocytes/100 leukocytes 5 % 0-12 Automated blood eosinophils/100 leukocytes 1 % 0-10 Automated blood basophils/100 leukocytes 0 % 0-10 Blood neutrophils automated count (number/volume) 9.9 10*3 1.8-7.8 Blood lymphocytes automated count (number/volume) 3.0 10*3 1.0-4.0 Blood monocytes automated count (number/volume) 0.8 10*3 0.0-1.0 Automated eosinophil count 0.1 10*3/uL 0.0-0.3 Automated blood basophil count (count/volume) 0.0 10*3/uL 0.0-0.1 Encounters ACCT No. Visit Date/Time Discharge Status Pt. Type Provider Facility Loc./Unit Complaint [id number] 11/21/2012 08:30:00 2012 23:40:00 DIS Inpatient Jonel RECIO, [facility] W.5WH [id number] 11/03/2012 19:00:00 2012 20:57:00 DIS Emergency Jonel RECIO, [facility] W.2WOBED [id number] 10/19/2012 15:47:00 2012 21:09:00 DIS Emergency Jonel RECIO, [facility] W.2WOBED [id number] 08/24/2012 14:52:00 2012 17:20:00 DIS Emergency Jonel RECIO, [facility] W.2WOBED [id number] 07/06/2012 13:22:00 2012 13:22:00 DIS Outpatient Jonel RECIO, [facility] W.RAD [id number] 05/28/2012 00:16:00 2012 04:00:00 DIS Emergency Sarah FULTON, Rolo Nguyễn [facility] W.EDS [id number] 05/01/2012 21:22:00 2012 00:58:00 DIS Emergency Shereen RECIO, Lonnie Shah [facility] W.EDS
--- OUTSIDE RECORDS SUMMARY | 2016-06-27 00:57 | XMS REPORT ---
Author Author DARA MONTALVO Organization [employer] Address Unknown Phone Unavailable Care Team Providers Care Print Line Inspector Name Role Phone DARA MONTALVO CP Unavailable Allergies No Known Allergies Problems Problem [...] Lumbago 724.2 Active Problem Cough 786.2 Active Problem Screening examination for venereal disease [...] Instructions Start Date End Date Status Dosage Vyvanse [facility] [address]-98 30 MG Orally Rupal to sign Once a day Jan 06, 2015 1 capsule in the morning Results No Known Results Summary Purpose [employer] Submission
--- OUTSIDE RECORDS SUMMARY | 2016-06-27 00:57 | XMS REPORT ---
Author Author SINA LOPEZ Organization [employer] Address Unknown Phone Unavailable Care Team Providers Care Educational Assistant Name Role Phone SINA LOPEZ CP Unavailable Allergies No Known Allergies Problems [...] Start Date End Date Status Dosage Vyvanse [facility] [address]-35 50 MG Orally Once a day Jan 06, 2015 1 capsule in the morning Adderall XR [facility] [address]-01 10 MG Orally Once a day Feb 10, 2015 1 capsule in the morning Results No Known Results Summary Purpose [employer] Submission
--- OUTSIDE RECORDS SUMMARY | 2016-06-27 00:58 | XMS REPORT ---
Author Author DARA MONTALVO [facility] [employer] Address Unknown Phone Unavailable Care Team Providers Care Dyehouse Worker Name Role Phone DARA MONTALVO CP Unavailable Allergies No Known Allergies Problems Problem Type Condition ICD-9 Code Onset Dates Condition Status Problem Obesity, [...] Active Problem Acute pharyngitis 462 Active Medications No Known Medications Results No Known Results Summary Purpose [employer] Submission
--- OUTSIDE RECORDS SUMMARY | 2016-06-27 00:58 | XMS REPORT ---
Author Author TAO ALEX [facility] [employer] Address Unknown Phone Unavailable Care Team Providers Care Tractor Operator Laser Leveling Name Role Phone TAO ALEX CP Unavailable Allergies No Known Allergies Problems [...]
--- OUTSIDE RECORDS SUMMARY | 2016-06-27 00:58 | XMS REPORT ---
Author Author TAO ALEX [facility] [employer] Address Unknown Phone Unavailable Care Team Providers Care Urban Anthropologist Name Role Phone TAO ALEX CP Unavailable [...] 724.2 Active Problem Cough 786.2 Active Assessment with 36 completed weeks gestation Z3A.36 Active Problem Screening examination for venereal disease V74.5 Active Problem Counseling on substance use and abuse V65.42 Active Problem Allergic rhinitis due to pollen 477.0 Active Problem Screening for malignant neoplasm of the cervix V76.2 Active Problem General counseling for prescription of oral contraceptives V25.01 Active Problem Routine gynecological examination V72.31 Active Problem Acute pharyngitis 462 Active Medications No Known Medications Procedures Procedure Coding System Code Date Office Visit, Est Pt., Level 3 CPT-4 67157 Dec 23, 2015 URINE-NO MICRO CPT-4 80888 Dec 23, 2015 Vital Signs Date/Time: Dec 23, 2015 Cardiac Monitoring Heart Rate 110 bpm Weight 299 lbs Height 65 in BMI 49.756 Index Blood Pressure Diastolic 88 mmHg Blood Pressure Systolic 136 mmHg Results Name Result Date Reference Range Unit Abnormality Flag UA OB DIP (IN HOUSE) ----Glucose Negative 20151223 ----Protein Negative [id number] Summary Purpose [employer] Submission
--- OUTSIDE RECORDS SUMMARY | 2016-06-27 00:58 | XMS REPORT ---
Author Author TAO ALEX [facility] [employer] Address Unknown Phone Unavailable Care Team Providers Care Regulatory Affairs Analyst Name Role Phone TAO ALEX CP Unavailable [...] 724.2 Active Problem Cough 786.2 Active Assessment Third trimester Z33.1 Active Problem Screening examination for venereal disease V74.5 Active Assessment Encounter for immunization Z23 Active Problem Counseling on substance use and abuse V65.42 Active Problem Allergic rhinitis due to pollen 477.0 Active Problem Screening for malignant neoplasm of the cervix V76.2 Active Problem General counseling for prescription of oral contraceptives V25.01 Active Problem Routine gynecological examination V72.31 Active Problem Acute pharyngitis 462 Active Medications Medication Code System Code Instructions Start Date End Date Status Dosage Ferrous Sulfate [facility] [address]-70 325 (65 Fe) MG Orally twice a day 1 tablet Promethazine HCl [facility] [address]-30 25 MG Orally every 8 hours, PRN OctJan 03, 2016 1 tablet as needed ProAir HFA [facility] [address]-09 108 (90 Base) MCG/ACT Inhalation every 4 hrs 2 puffs as needed [facility] [address] - Orally Once a day 1 tablet Procedures Procedure Coding System Code Date Office Visit, Est Pt., Level 3 CPT-4 12122 Nov 18, 2015 TDAP (BOOSTRIX) CPT-4 67288 Nov 18, 2015 URINE-NO MICRO CPT-4 93981 Nov 18, 2015 HYDROXYPROGESTERONE (PT'S OWN) CPT-4 79201 Nov 18, 2015 SINGLE IMMUNIZATION ADMIN CPT-4 67568 Nov 18, 2015 THER/PROPH/DIAG INJ, SC/IM CPT-4 74819 Nov 18, 2015 Vital Signs Date/Time: Nov 18, 2015 Cardiac Monitoring Heart Rate 100 bpm Weight 296.4 lbs Height 65 in BMI 49.324 Index Blood Pressure Diastolic 78 mmHg Blood Pressure Systolic 130 mmHg Results Name Result Date Reference Range Unit Abnormality Flag UA OB DIP (IN HOUSE) ----Glucose Negative [id number] ----Protein Negative [id number] Immunizations Vaccine Administration Date TDAP (BOOSTRIX) Nov 18, 2015 Summary Purpose [employer] Submission
--- OUTSIDE RECORDS SUMMARY | 2016-06-27 00:58 | XMS REPORT ---
Author Author TAO ALEX [facility] eClinicalWorks Address Unknown Phone Unavailable Care Team Providers Care Milliner Helper Name Role Phone TAO ALEX CP Unavailable [...] examination for venereal disease V74.5 Active Assessment labor with delivery, not applicable or unspecified fetus O60.10X0 Active Problem Counseling on substance use and abuse V65.42 Active Problem Allergic rhinitis due to pollen 477.0 Active Problem Screening for malignant neoplasm of the cervix V76.2 Active Problem General counseling for prescription of oral contraceptives V25.01 Active Problem Routine gynecological examination V72.31 Active Problem Acute pharyngitis 462 Active Medications Medication Code System Code Instructions Start Date End Date Status Dosage Omeprazole [facility] [address]-63 10 MG Orally Once a day Dec 02, 2015 2 capsules Procedures Procedure Coding System Code Date Office Visit, Est Pt., Level 3 CPT-4 89180 Dec 02, 2015 HYDROXYPROGESTERONE (PT'S OWN) CPT-4 69778 Dec 02, 2015 URINE-NO MICRO CPT-4 25745 Dec 02, 2015 THER/PROPH/DIAG INJ, SC/IM CPT-4 27576 Dec 02, 2015 Vital Signs Date/Time: Dec 02, 2015 Cardiac Monitoring Heart Rate 90 bpm Weight 293 lbs Height 65 in BMI 48.758 Index Blood Pressure Diastolic 78 mmHg Blood Pressure Systolic 120 mmHg Results Name Result Date Reference Range Unit Abnormality Flag UA OB DIP (IN HOUSE) ----Glucose negative [id number] ----Protein 1+ [id number] Summary Purpose eClinicalWorks Submission
--- OUTSIDE RECORDS SUMMARY | 2016-06-27 00:59 | XMS REPORT ---
Author Author DARA MONTALVO Organization eClinicalWorks Address Unknown Phone Unavailable Care Team Providers Care Senior Associate Name Role Phone DARA MONTALVO CP Unavailable [...] Start Date End Date Status Dosage Vyvanse [facility] [address]-62 30 MG Orally Rupal to sign Once a day Jan 06, 2015 1 capsule in the morning Results No Known Results Summary Purpose eClinicalWorks Submission
--- OUTSIDE RECORDS SUMMARY | 2016-06-27 00:59 | XMS REPORT ---
Author Author SINA LOPEZ [facility] eClinicalWorks Address Unknown Phone Unavailable Care Team Providers Care Acupressure Therapist Name Role Phone SINA LOPEZ CP Unavailable Allergies, Adverse Reactions, Alerts Substance [...] 724.2 Active Problem Cough 786.2 Active Assessment ADHD (attention deficit hyperactivity disorder), combined type F90.2 Active Problem Screening examination for venereal disease V74.5 Active Assessment Major depressive disorder, recurrent, moderate F33.1 Active Assessment Generalized anxiety disorder F41.1 Active Problem Counseling on substance use and abuse V65.42 Active Problem Allergic rhinitis due to pollen 477.0 Active Problem Screening for malignant neoplasm of the cervix V76.2 Active Problem General counseling for prescription of oral contraceptives V25.01 Active Problem Routine gynecological examination V72.31 Active Problem Acute pharyngitis 462 Active Medications Medication Code System Code Instructions Start Date End Date Status Dosage Klonopin [facility] [address]-22 1 MG Orally 2 times a day April 25, 2014 1 tablet Omeprazole [facility] 73845001771 40 TAKE 1 CAPSULE BY MOUTH EVERY DAY Loratadine [facility] [address]-19 10 mg May 08, 2014 take 1 tablet by Oral route 1 time per day take at hs Adderall XR [facility] [address]-13 30 mg Orally Once a day Feb 10, 2015 1 capsule in the morning Brintellix [facility] [address]-89 10 MG Orally Once a day - in additon to the 20 mg dose September 09, 2014 1 tablet Symbicort [facility] [address]-83 160-4.5 mcg/actuation Jan 01, 2014 inhale 2 puffs by Inhalation route in the morning and evening 2 times per day trial for asthma treatment Albuterol Sulfate [facility] [address]-03 90 mcg/actuation Jan 01, 2014 inhale 2 puffs by Inhalation route every 4 hours PRN rescue inhaler Brintellix [facility] [address]-53 20 MG Orally Once a day July 24, 2014 1 tablet Depo-Provera [facility] [address]-48 150 MG/ML Intramuscular once every 3 months 1 ml Vyvanse [facility] [address]-73 70mg Orally Once a day Jan 06, 2015 1 capsule in the morning Trazodone HCl [facility] [address]-96 150 MG Orally Once a day September 09, 2014 1 tablet at bedtime as needed Flonase NDC 0 50 mcg/actuation Jan 01, 2014 1 sprays by Nasal route 2 times per day in each nostril Procedures Procedure Coding System Code Date Office Visit, Est Pt., Level 4 CPT-4 01127 Mar 13, 2015 Vital Signs Date/Time: Mar 13, 2015 Cardiac Monitoring Heart Rate 96 bpm Weight 284.9 lbs Height 65 in BMI 47.40 Index Blood Pressure Diastolic 100 mmHg Blood Pressure Systolic 140 mmHg Results No Known Results Summary Purpose eClinicalWorks Submission
--- OUTSIDE RECORDS SUMMARY | 2016-06-27 00:59 | XMS REPORT ---
Author BARON Marshall [facility] eClinicalWorks Address Unknown Phone Unavailable Care Team Providers Care Ent Nurse Name Role Phone BARON SALES CP Unavailable Allergies No Known Allergies Problems [...]
--- OUTSIDE RECORDS SUMMARY | 2016-06-27 01:00 | XMS REPORT ---
Author TAO Rosas [facility] eClinicalWorks Address Unknown Phone Unavailable Care Team Providers Care Antichecking Iron Worker Name Role Phone TAO ALEX CP Unavailable [...] for venereal disease V74.5 Active Assessment labor in second trimester with delivery, not applicable or unspecified fetus [...] Instructions Start Date End Date Status Dosage Hydroxyprogesterone Caproate [facility] [address]-80 250 MG/ML Intramuscular once weekly until delivery September 16, 2015 Inject 1 mL Vitamin C [facility] [address]-20 1000 MG Orally Once a day 1 tablet Vitamin B Complex [facility] [address]68-31943 not defined Vitamin [facility] 24194-55722 27-0.8 MG Orally not defined Procedures Procedure Coding System Code Date Office Visit, Est Pt., Level 3 CPT-4 30709 September 16, 2015 URINE-NO MICRO CPT-4 46025 September 16, 2015 Vital Signs Date/Time: September 16, 2015 Blood Pressure Systolic 130 mmHg Weight 298.0 lbs Height 65 in BMI 49.58 Index Blood Pressure Diastolic 78 mmHg Results No Known Results Summary Purpose eClinicalWorks Submission
--- OUTSIDE RECORDS SUMMARY | 2016-06-27 01:00 | XMS REPORT ---
Author TAO Rosas [facility] eClinicalWorks Address Unknown Phone Unavailable Care Team Providers Care Bowling Or Skating Front Desk Clerk Name Role Phone TAO ALEX CP Unavailable [...] 724.2 Active Problem Cough 786.2 Active Assessment labor with delivery, not applicable or unspecified fetus O60.10X0 Active Problem Screening examination for venereal disease [...] Medications Procedures Procedure Coding System Code Date THER/PROPH/DIAG INJ, SC/IM CPT-4 15949 Oct 07, 2015 HYDROXYPROGESTERONE (PT'S OWN) CPT-4 85174 Oct 07, 2015 Results No Known Results Summary Purpose eClinicalWorks Submission
--- OUTSIDE RECORDS SUMMARY | 2016-06-27 01:01 | XMS REPORT ---
Author Author SINA LOPEZ [facility] eClinicalWorks Address Unknown Phone Unavailable Care Team Providers Care Manager Council Name Role Phone SINA LOPEZ Unavailable Allergies, Adverse Reactions, Alerts Substance Reaction [...] Start Date End Date Status Dosage Vyvanse [facility] [address]-29 50 MG Orally Once a day Jan 06, 2015 1 capsule in the morning Adderall XR [facility] [address]-85 10 MG Orally Once a day Feb 10, 2015 1 capsule in the morning Depo-Provera [facility] [address]-72 150 MG/ML Intramuscular once every 3 months 1 ml Klonopin [facility] [address]-61 1 MG Orally 2 times a day April 25, 2014 1 tablet Flonase [place] 0 50 mcg/actuation Jan 01, 2014 1 sprays by Nasal route 2 times per day in each nostril Loratadine [facility] [address]-41 10 mg May 08, 2014 take 1 tablet by Oral route 1 time per day take at hs Symbicort [facility] [address]-23 160-4.5 mcg/actuation Jan 01, 2014 inhale 2 puffs by Inhalation route in the morning and evening 2 times per day trial for asthma treatment Brintellix [facility] [address]-38 10 MG Orally Once a day - in additon to the 20 mg dose September 09, 2014 1 tablet Brintellix [facility] [address]-56 20 MG Orally Once a day starting on week 2 July 24, 2014 1 tablet Trazodone HCl [facility] [address]-33 150 MG Orally Once a day September 09, 2014 1 tablet at bedtime as needed Omeprazole [facility] 86718158666 40 TAKE 1 CAPSULE BY MOUTH EVERY DAY Albuterol Sulfate [facility] [address]-00 90 mcg/actuation Jan 01, 2014 inhale 2 puffs by Inhalation route every 4 hours PRN rescue inhaler Procedures Procedure Coding System Code Date Office Visit, Est Pt., Level 3 CPT-4 72875 Feb 10, 2015 Vital Signs Date/Time: Feb 10, 2015 Cardiac Monitoring Heart Rate 92 bpm Weight 289.6 lbs Height 65 in BMI 48.19 Index Blood Pressure Diastolic 90 mmHg Blood Pressure Systolic 125 mmHg Results No Known Results Summary Purpose eClinicalWorks Submission
--- OUTSIDE RECORDS SUMMARY | 2016-06-27 01:03 | XMS REPORT ---
Author TAO Rosas [facility] eClinicalWorks Address Unknown Phone Unavailable Care Team Providers Care Facilities Director Name Role Phone TAO ALEX CP Unavailable [...] Medications Procedures Procedure Coding System Code Date VENIPUNCT, ROUTINE* CPT-4 09723 Oct 16, 2015 LAB NOT BILLED BY [facility] CPT-4 NOBLL Oct 16, 2015 Results No Known Results Summary Purpose eClinicalWorks Submission
--- OUTSIDE RECORDS SUMMARY | 2016-06-27 01:03 | XMS REPORT ---
Author Author TAO ALEX [facility] eClinicalWorks Address Unknown Phone Unavailable Care Team Providers Care Service Station Equipment Mechanic Name Role Phone TAO ALEX CP Unavailable [...] Active Problem Cough 786.2 Active Assessment labor in second trimester with [...] System Code Date THER/PROPH/DIAG INJ, SC/IM CPT-4 59281 Nov 25, 2015 HYDROXYPROGESTERONE (PT'S OWN) CPT-4 64212 Nov 25, 2015 Results No Known Results Summary Purpose eClinicalWorks Submission
--- OUTSIDE RECORDS SUMMARY | 2016-06-27 01:03 | XMS REPORT ---
Author Author DARA MONTALVO [facility] eClinicalWorks Address Unknown Phone Unavailable Care Team Providers Care Machine Icer Name Role Phone DARA MONTALVO Unavailable Allergies, Adverse Reactions, Alerts Substance Reaction [...] 724.2 Active Problem Cough 786.2 Active Assessment Depression, major, recurrent, in partial remission F33.41 Active Problem Screening examination for venereal disease V74.5 Active Assessment ADHD (attention deficit hyperactivity disorder), combined type F90.2 Active Assessment Generalized anxiety disorder F41.1 Active [...] Instructions Start Date End Date Status Dosage Trazodone HCl [facility] [address]-32 150 MG Orally Once a day September 09, 2014 1 tablet at bedtime as needed Klonopin [facility] [address]-59 1 MG Orally Once a day as needed for anxiety April 25, 2014 1 tablet Flonase [facility] [address]-39 50 mcg/actuation Jan 01, 2014 1 sprays by Nasal route 2 times per day in each nostril Brintellix [facility] [address]-06 10 MG Orally Once a day - in additon to the 20 mg dose September 09, 2014 1 tablet Vyvanse [facility] [address]-35 30 MG Orally Once a day Jan 06, 2015 1 capsule in the morning Symbicort [facility] [address]-38 160-4.5 mcg/actuation Jan 01, 2014 inhale 2 puffs by Inhalation route in the morning and evening 2 times per day trial for asthma treatment Albuterol Sulfate [facility] [address]-68 90 mcg/actuation Jan 01, 2014 inhale 2 puffs by Inhalation route every 4 hours PRN rescue inhaler Brintellix [facility] [address]-66 20 MG Orally Once a day starting on week 2 July 24, 2014 1 tablet Omeprazole [facility] 99271671385 40 TAKE 1 CAPSULE BY MOUTH EVERY DAY Procedures Procedure Coding System Code Date Office Visit, Est Pt., Level 3 CPT-4 39805 Jan 06, 2015 Vital Signs Date/Time: Jan 06, 2015 Cardiac Monitoring Heart Rate 80 bpm Weight 294 lbs Height 65 in BMI 48.92 Index Blood Pressure Diastolic 66 mmHg Blood Pressure Systolic 130 mmHg Results No Known Results Summary Purpose eClinicalWorks Submission
--- OUTSIDE RECORDS SUMMARY | 2016-06-27 01:03 | XMS REPORT ---
Author Author TAO ALEX [facility] eClinicalWorks Address Unknown Phone Unavailable Care Team Providers Care Surface Boss Name Role Phone TAO ALEX CP Unavailable [...]
--- OUTSIDE RECORDS SUMMARY | 2016-06-27 01:03 | XMS REPORT ---
Author TAO Rosas [facility] eClinicalWorks Address Unknown Phone Unavailable Care Team Providers Care Mixing Picker Tender Name Role Phone TAO ALEX CP Unavailable [...] System Code Date THER/PROPH/DIAG INJ, SC/IM CPT-4 38665 Sep 30, 2015 HYDROXYPROGESTERONE (PT'S OWN) CPT-4 92773 Sep 30, 2015 Results No Known Results Summary Purpose eClinicalWorks Submission
--- OUTSIDE RECORDS SUMMARY | 2016-06-27 01:03 | XMS REPORT ---
Author TOA Rosas [facility] eClinicalWorks Address Unknown Phone Unavailable Care Team Providers Care Divisional Merchandising Manager Name Role Phone TAO ALEX CP Unavailable [...] Medications Procedures Procedure Coding System Code Date HYDROXYPROGESTERONE (PT'S OWN) CPT-4 48583 Oct 14, 2015 THER/PROPH/DIAG INJ, SC/IM CPT-4 68987 Oct 14, 2015 URINE-NO MICRO CPT-4 83089 Oct 14, 2015 Office Visit, Est Pt., Level 3 CPT-4 83515 Oct 14, 2015 Vital Signs Date/Time: Oct 14, 2015 Blood Pressure Systolic 140 mmHg Weight 297.0 lbs Height 65 in BMI 49.423 Index Blood Pressure Diastolic 78 mmHg Results No Known Results Summary Purpose eClinicalWorks Submission
--- OUTSIDE RECORDS SUMMARY | 2016-06-27 01:04 | XMS REPORT ---
Author Author TAO ALEX [facility] Address [address] [place] [address] Care Team Providers Care Boiler Helper Name Role Phone TAO ALEX Unavailable PROBLEMS Type Condition ICD9-CM Code YSB30-OR Code Onset Dates Condition Status SNOMED Code Problem Unspecified symptom associated with female genital organs 625.9 Active 865809678 Problem Obsessive-compulsive disorders 300.3 Active 163093572 Problem Major depressive disorder, recurrent episode, moderate 296.32 Active 65758847 Problem Acute sinusitis, unspecified 461.9 Active 30771278 Problem Unspecified contraceptive management V25.9 Active 625474252 Problem Cough 786.2 Active 86737453 Problem Generalized anxiety disorder 300.02 Active 36576501 Problem Previous delivery, unspecified as to episode of care or not applicable 654.20 Active 878843494 Problem Lumbago 724.2 Active 594522730 Problem Screening examination for venereal disease V74.5 Active 026271837 Problem Screening for malignant neoplasm of the cervix V76.2 Active 943521993 Assessment Encounter for immunization Z23 14 Oct, 2015 Active 688605965 Assessment Third trimester Z33.1 14 Oct, 2015 Active 32463410 Problem Allergic rhinitis due to pollen 477.0 Active 49494501 Problem General counseling for prescription of oral contraceptives V25.01 Active 471875994 Problem Routine gynecological examination V72.31 Active 291574723035576 Problem Acute pharyngitis 462 Active 270162196 Problem Counseling on substance use and abuse V65.42 Active 342217901 Problem Obesity, unspecified 278.00 Active 144474320 ALLERGIES Substance Reaction Event Type Date Status N.K.D.A. Unknown Non Drug Allergy Oct, Unknown SOCIAL HISTORY No smoking Hx information available PLAN OF CARE VITAL SIGNS Height 65 in 2015-11-04 Weight 285.9 lbs 2015-11-04 Heart Rate 82 bpm 2015-11-04 Respiratory Rate 20 2015-11-04 BMI 47.576 kg/m2 2015-11-04 Blood pressure systolic 110 mmHg 2015-11-04 Blood pressure diastolic 78 mmHg 2015-11-04 MEDICATIONS Medication Instructions Dosage Frequency Start Date End Date Duration Status Promethazine HCl 25 MG Orally every 8 hours, PRN 1 tablet as needed Oct, Dec, 30 day(s) Active - Orally Once a day 1 tablet 24h Active ProAir HFA 108 (90 Base) MCG/ACT Inhalation every 4 hrs 2 puffs as needed 4h Active RESULTS Name Result Date Reference Range IRON 2015-11-04 Iron, Serum 22 27-159 CBC 2015-11-04 WBC 14.9 3.4-10.8 RBC 3.14 3.77-5.28 Hemoglobin 9.0 11.1-15.9 Hematocrit 26.5 34.0-46.6 MCV 84 79-97 MCH 28.7 26.6-33.0 MCHC 34.0 31.5-35.7 RDW 14.3 12.3-15.4 Platelets 366 150-379 Neutrophils 72 Lymphs 22 Monocytes 5 Eos 1 Basos 0 Neutrophils (Absolute) 10.6 1.4-7.0 Lymphs (Absolute) 3.3 0.7-3.1 Monocytes(Absolute) 0.7 0.1-0.9 Eos (Absolute) 0.2 0.0-0.4 Baso (Absolute) 0.0 0.0-0.2 Immature Granulocytes 0 Immature Grans (Abs) 0.0 0.0-0.1 UA OB DIP (IN HOUSE) 2015-11-04 Glucose negative Protein 1+ PROCEDURES Procedure Date Ordered Related Diagnosis Body Site URINE-NO MICRO Nov 04, 2015 LAB NOT BILLED BY [facility] Nov 04, 2015 SINGLE IMMUNIZATION ADMIN Nov 04, 2015 FLUARIX QUAD P-FREE 3 AND UP .50 2015Nov 04, 2015 HYDROXYPROGESTERONE (PT'S OWN) Nov 04, 2015 Office Visit, Est Pt., Level 3 Nov 04, 2015 VENIPUNCT, ROUTINE* Nov 04, 2015 THER/PROPH/DIAG INJ, SC/IM Nov 04, 2015 IMMUNIZATIONS Vaccine Route Administration Date Status FLUARIX QUAD P-FREE 3 AND UP .50 2015 IM Intramuscular Nov 04, 2015 Administered HYDROXYPROGESTERONE (PT'S OWN) IM Intramuscular Nov 04, 2015 Administered
--- OUTSIDE RECORDS SUMMARY | 2016-06-27 01:04 | XMS REPORT ---
Author TAO Rosas [facility] eClinicalWorks Address Unknown Phone Unavailable Care Team Providers Care Ship'S Carpenter Name Role Phone TAO ALEX CP Unavailable [...] System Code Date THER/PROPH/DIAG INJ, SC/IM CPT-4 74361 Sep 23, 2015 HYDROXYPROGESTERONE (PT'S OWN) CPT-4 51292 Sep 23, 2015 Results No Known Results Summary Purpose eClinicalWorks Submission
--- OUTSIDE RECORDS SUMMARY | 2016-06-27 01:04 | XMS REPORT ---
Author Author TAO ALEX [facility] eClinicalWorks Address Unknown Phone Unavailable Care Team Providers Care Corporate Executive Chef Name Role Phone TAO ALEX CP Unavailable [...] Instructions Start Date End Date Status Dosage [facility] [address]-54 27-1 MG Orally Once a day 1 tablet Results No Known Results Summary Purpose eClinicalWorks Submission
--- OUTSIDE RECORDS SUMMARY | 2016-06-27 01:05 | XMS REPORT ---
Author Author DARA MONTALVO Organization eClinicalWorks Address Unknown Phone Unavailable Care Team Providers Care Engineer First Assistant Name Role Phone DARA MONTALVO CP Unavailable [...] Start Date End Date Status Dosage Klonopin [facility] [address]-18 1 MG Orally Once a day as needed for anxiety April 25, 2014 1 tablet Results No Known Results Summary Purpose eClinicalWorks Submission
--- OUTSIDE RECORDS SUMMARY | 2016-06-27 01:05 | XMS REPORT ---
Author Author TAO ALEX [facility] eClinicalWorks Address Unknown Phone Unavailable Care Team Providers Care Social Scientist Name Role Phone TAO ALEX CP Unavailable [...] Start Date End Date Status Dosage Omeprazole [facility] [address]-27 10 mg Orally Once a day Dec 02, 2015 2 capsules Results No Known Results Summary Purpose eClinicalWorks Submission
== END 2016-05-27 00:42 | disposition home or self-care (01) ==
LOC: EDUNIT# 21:55 → ER 21:57
DX: K04.7 Periapical abscess without sinus (principal); F17.210 Nicotine dependence, cigarettes, uncomplicated
CPT/HCPCS: 96372; 99282

== ENCOUNTER 2016-08-13 15:22 | Emergency (ER) | payer MEDICAID ==
[~2016-08-13] VITALS: Ht 165.1 cm; Wt 122.6 kg
[~2016-08-13 15:22] MED LIST changes: +CLIN150C17 PO; +DEXT10TA24; +HYDR-3812 PO; +TRAZ150T72; +VORT20TA; +VYVANSE
[2016-08-13] MEDS ORDERED: TETANUS,DIPTH,PERTUSS P/F (BOOSTRIX) 0.5 ML VIAL IM ONE (16:15)
[2016-08-13] MEDS ORDERED: SULF1TAB35 PO (16:16)
--- NOTE | 2016-08-13 16:16 | ED Integumentary General ---
General Chief Complaint: Skin/Wound Problems Stated Complaint: SPIDER BITE Source: patient Exam Limitations: no limitations History of Present Illness Time seen by provider: 15:53 Initial Comments This 30-year-old young lady presents to the emergency room with a lesion on her right lower abdomen suspected of being a spider bite. She reports being exposed to many spiders in her environment. The wound was just noticed today and his ulcerative with a dark center. She has felt nauseated today but denies any other systemic symptoms such as malaise or fever. There has been no drainage from the wound. She did not actually see a spider bite her. Patient applied salt directly to the wound and taped a dressing over it. Patient is presently on Augmentin for sinus issues. Allergies and Home Medications Allergies Coded Allergies: No Known Drug Allergies (Unverified , 03/11/13) Home Medications Clindamycin HCl 150 Mg Capsule, 450 MG PO TID, #90 Prescribed by: RIDDHI APARICIO on 05/27/16 0020 Dextroamphetamine/Amphetamine 10 Mg Tablet, #28 (Reported) Hydrocodone/Acetaminophen 1 Each Tablet, 1 EACH PO Q4H PRN for PAIN, #10 Prescribed by: RIDDHI APARICIO on 05/27/16 0021 Sulfamethoxazole/Trimethoprim 1 Each Tablet, 1 EACH PO BID, #14 Prescribed by: RIDDHI APARICIO on 08/13/16 1616 Trazodone HCl 150 Mg Tablet, #15 (Reported) Vortioxetine Hydrobromide 20 Mg Tablet, #30 (Reported) [Vyvanse] , #28 (Reported) Constitutional: no symptoms reported EENTM: no symptoms reported Respiratory: no symptoms reported Cardiovascular: no symptoms reported Gastrointestinal: see HPI Genitourinary: no symptoms reported Musculoskeletal: no symptoms reported Skin: see HPI Psychiatric/Neurological: No Symptoms Reported Endocrine: No Symptoms Reported Hematologic/Lymphatic: No Symptoms Reported Past Udkpwtz-Soamug-Ekgilf Hx Patient Social History Alcohol Use: Denies Use Recreational Drug Use: No Smoking Status: Current Everyday Smoker Type Used: Cigarettes Recent Foreign Travel: No Contact w/Someone Who Travel: No Immunizations Up To Date Tetanus Booster (TDap): Unknown Date of Pneumonia Vaccine: Feb 21, 2012 Date of Influenza Vaccine: Nov 04, 2015 Seasonal Allergies Seasonal Allergies: Yes Surgeries HX Surgeries: Yes (WISDOM TEETH REMOVED. CERVIX BIOPSY; LEFT ARM FX/ORIF) Surgeries: Adenoidectomy, Section, Gallbladder, Orthopedic, Tonsillectomy, Tubal Ligation Respiratory Hx Respiratory Disorders: Yes ("SITUATIONAL" ASTHMA--DOES NOT ROUTINELY USE AN INHALER) Respiratory Disorders: Asthma, Pneumonia Cardiovascular Hx Cardiac Disorders: No Neurological Hx Neurological Disorders: Yes Neurological Disorders: Headaches /Migraines Reproductive System Hx Reproductive Disorders: No Female Reproductive Disorders: Denies Genitourinary Hx Genitourinary Disorders: No Gastrointestinal Hx Gastrointestinal Disorders: Yes Gastrointestinal Disorders: Chronic Diarrhea, Esophagitis Musculoskeletal Hx Musculoskeletal Disorders: Yes (LEFT ARM FX/ORIF, right ankle fx) Musculoskeletal Disorders: Arthritis, Chronic Back Pain, Fractures Endocrine Hx Endocrine Disorders: No HEENT HX ENT Disorders: No Cancer Hx Cancer: No Psychosocial Hx Psychiatric Problems: Yes Behavioral Health Disorders: ADD/ADHD, Anxiety, ODD, Depression Integumentary HX Skin/Integumentary Disorder: Yes (very sensitive skin-breaks out in rashes frequently) Skin/Integumentary Disorders: Psoriasis Blood Transfusions Hx Blood Disorders: Yes (anemia, ) Adverse Reaction to a Blood Tr: No Family Medical History Significant Family History: Heart Disease, Cancer, Diabetes Family Medial History: Diabetes mellitus 19 MOTHER FH: COPD (chronic obstructive pulmonary disease) 19 MOTHER FH: schizophrenia 19 MOTHER FH: uterine cancer Fibromyalgia 19 MOTHER Physical Exam Vital Signs Vital Sign - Last 12Hours 08/13/16 15:46 Temp 97.2 Pulse 100 Resp 18 B/P (MAP) 144/103 Pulse Ox 97 O2 Delivery Room Air Capillary Refill : General Appearance: WD/WN, no apparent distress HEENT: normal ENT inspection Neck: normal inspection Cardiovascular: regular rate, rhythm, no edema, no murmur Respiratory: lungs clear, normal breath sounds, no respiratory distress Gastrointestinal: normal bowel sounds, non tender, soft Extremities: normal inspection 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/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: 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, no motor/sensory deficits, alert, normal mood/affect, oriented x 3 Skin: warm/dry, other (Subcentimeter dusky-appearing ulcerative lesion on the right lower abdomen with mild inflammation of the surrounding skin) Skin Problem Location: torso Skin Problem Character: erythema, other (Dusky subcentimeter ulcerative lesion) Dental Procedures: Dental I&D Progress/Results/Core Measures Results/Orders My Orders Orders - RIDDHI ARIAS MD Dipht,Pertuss(Acell),Tet Adult (Boostrix (08/13/16 16:15) Vital Signs/I&O Vital Sign - Last 12Hours 08/13/16 08/13/16 15:46 16:40 Temp 97.2 Pulse 100 92 Resp 18 18 B/P (MAP) 144/103 Pulse Ox 97 98 O2 Delivery Room Air Progress Note : Progress Note Wound was cleaned with water and sterile gauze. Large Band-Aid was applied. Boostrix tetanus booster was administered. Bactrim was prescribed to cover for MRSA as well. Departure Impression Impression: Primary Impression: Spider bite Qualified Codes: T63.301A - Toxic effect of unspecified spider venom, accidental (unintentional), initial encounter Disposition: HOME, SELF-CARE Condition: Improved Departure-Patient Inst. Decision time for Depature: 16:05 Referrals: [facility] (PCP/Family) Primary Care Physician Patient Instructions: Spider Bites Add. Discharge Instructions: Complete the Augmentin previously prescribed and the Bactrim as prescribed for infection prevention. Monitor your wound for progression of severity. Follow- up with your primary care provider next week for reassessment. Return to the emergency room if symptoms worsen, especially if you develop fever greater than 100 or other severe symptoms. You may cover the wound if necessary to keep it from rubbing on clothing. All discharge instructions reviewed with patient and/or family. Voiced understanding. Scripts Sulfamethoxazole/Trimethoprim (Bactrim Ds Tablet) 1 Each Tablet 1 EACH PO BID, #14 TAB Prov: RIDDHI ARIAS MD 08/13/16 RIDDHI ARIAS MD Aug 13, 2016 16:16
[2016-08-13 16:40] VITALS: BP 140/90
== END 2016-08-13 16:40 | disposition home or self-care (01) ==
LOC: EDUNIT# 15:22 → ER 15:24
DX: T14.8 Other injury of unspecified body region (principal); F41.9 Anxiety disorder, unspecified; F90.9 Attention-deficit hyperactivity disorder, unspecified type; J45.909 Unspecified asthma, uncomplicated; F91.3 Oppositional defiant disorder; Z87.39 Personal history of other diseases of the musculoskeletal system and connective tissue; W57.XXXA Bitten or stung by nonvenomous insect and other nonvenomous arthropods, initial encounter
CPT/HCPCS: 90715; 99282

== ENCOUNTER 2016-10-23 09:37 | Emergency (ER) | payer MEDICAID ==
[~2016-10-23] VITALS: Ht 165.1 cm; Wt 124.7 kg
[~2016-10-23 09:37] MED LIST changes: +SULF1TAB35 PO
[2016-10-23] MEDS ORDERED: FLUT9.9S NS (10:13)
[2016-10-23] MEDS ORDERED: iron PO (10:13)
[2016-10-23] MEDS ORDERED: METF500T4 PO (10:13)
[2016-10-23] MEDS ORDERED: GABA-486 PO (10:13)
[2016-10-23] MEDS ORDERED: HYDR50TA76 PO (10:13)
[2016-10-23] MEDS ORDERED: LISD60CA PO (10:13)
[2016-10-23] MEDS ORDERED: RT-ALBUINH IH (10:13)
[2016-10-23] MEDS ORDERED: AMOX500C2 PO (11:04)
[2016-10-23] MEDS ORDERED: HYDR-757 PO (11:04)
[2016-10-23] MEDS ORDERED: OXYM15MI4 NS (11:04)
--- NOTE | 2016-10-23 11:04 | ED EENT ---
History of Present Illness General Chief Complaint: Dental Problems/Pain Stated Complaint: BILAT EAR PAIN/L SIDE DENTAL PAIN Nursing Triage Note: Pt reports having a sinus infection and bilat ear infection x 1 week, and a bad tooth. Pt has extraction scheduled for December but over last 2 days dental pain has become unbearable. Pt finished round of steriod 3 day course of steriods 3 days ago. Pt states tylenol and ibuprofen have not helped at all. pt has used ice packs as well Source: patient Exam Limitations: no limitations History of Present Illness Time seen by provider: 11:00 Initial Comments To ER with bilateral earache, left upper tooth pain for one week. States she is scheduled for a tooth extraction in December. She cannot tolerate the pain. Timing/Duration: abrupt Severity: moderate Location: ear (R), ear (L), dental Prearrival Treatment: over the counter meds Allergies and Home Medications Allergies Coded Allergies: No Known Drug Allergies (Unverified , 03/11/13) Home Medications Albuterol Sulfate 6.7 Gm Hfa.aer.ad, 2 PUFF IH Q6H PRN for SHORTNESS OF BREATH, (Reported) Dextroamphetamine/Amphetamine 10 Mg Tablet, #28 (Reported) Fluticasone Propionate 9.9 Ml [place].susp, 1 SPRAY NS DAILY, (Reported) Gabapentin 100 Mg Capsule, 100 MG PO BID, (Reported) Hydroxyzine HCl 50 Mg Tablet, 50 MG PO HS, (Reported) Lisdexamfetamine Dimesylate 60 Mg Capsule, 60 MG PO DAILY, (Reported) Metformin HCl 500 Mg Tablet, 500 MG PO with dinner, (Reported) Vortioxetine Hydrobromide 20 Mg Tablet, #30 (Reported) [iron] , 2 TAB PO DAILY, (Reported) Review of Systems Constitutional: see HPI Eyes: No Symptoms Reported Ears: See HPI, Pain Nose: no symptoms reported Mouth: see HPI, pain Throat: no symptoms reported Respiratory: no symptoms reported Cardiovascular: no symptoms reported Musculoskeletal: no symptoms reported Skin: no symptoms reported Neurological: No Symptoms Reported Hematologic/Lymphatic: No Symptoms Reported Immunological/Allergic: no symptoms reported Past Zscxqyg-Faznbm-Ecxqry Hx Patient Social History Alcohol Use: Denies Use Recreational Drug Use: No Smoking Status: Current Everyday Smoker Type Used: Cigarettes 2nd Hand Smoke Exposure: No Recent Foreign Travel: No Contact w/Someone Who Travel: No Recent Infectious Disease Expo: No Recent Hopitalizations: No Immunizations Up To Date Tetanus Booster (TDap): Unknown Date of Pneumonia Vaccine: Feb 21, 2012 Date of Influenza Vaccine: Nov 04, 2015 Seasonal Allergies Seasonal Allergies: Yes Surgeries History of Surgeries: Yes (WISDOM TEETH REMOVED. CERVIX BIOPSY; LEFT ARM FX/ ORIF) Surgeries: Adenoidectomy, Section, Gallbladder, Orthopedic, Tonsillectomy, Tubal Ligation Respiratory History of Respiratory Disorde: Yes ("SITUATIONAL" ASTHMA--DOES NOT ROUTINELY USE AN INHALER) Respiratory Disorders: Asthma, Pneumonia Cardiovascular History of Cardiac Disorders: No Neurological History of Neurological Disord: Yes Neurological Disorders: Headaches /Migraines Reproductive System Hx Reproductive Disorders: No Female Reproductive Disorders: Denies Gastrointestinal History of Gastrointestinal Di: Yes Gastrointestinal Disorders: Chronic Diarrhea, Esophagitis Musculoskeletal History of Musculoskeletal Dis: Yes (LEFT ARM FX/ORIF, right ankle fx) Musculoskeletal Disorders: Arthritis, Chronic Back Pain, Fractures Endocrine History of Endocrine Disorders: No Cancer History of Cancer: No Psychosocial History of Psychiatric Problem: Yes Behavioral Health Disorders: ADD/ADHD, Anxiety, ODD, Depression Integumentary History of Skin or Integumenta: Yes (very sensitive skin-breaks out in rashes frequently) Skin/Integumentary Disorders: Psoriasis Blood Transfusions History of Blood Disorders: Yes (anemia, ) Adverse Reaction to a Blood Tr: No Family Medical History Significant Family History: Heart Disease, Cancer, Diabetes Family Medial History: Diabetes mellitus 19 MOTHER FH: COPD (chronic obstructive pulmonary disease) 19 MOTHER FH: schizophrenia 19 MOTHER FH: uterine cancer Fibromyalgia 19 MOTHER Physical Exam Vital Signs Vital Sign - Last 12Hours 10/23/16 10:01 Temp 97.5 Pulse 99 Resp 18 B/P (MAP) 133/87 Pulse Ox 98 O2 Delivery Room Air General Appearance: WD/WN, no apparent distress Eyes: bilateral eye normal inspection, bilateral eye PERRL, bilateral eye EOMI Ears: right ear auricle normal, right ear canal normal, right ear TM normal, left ear TM red, left ear TM bulging Mouth/Throat: normal mouth inspection, pharynx normal, other ( multiple dental caries) Neck: non-tender, full range of motion (I was not really) Respiratory: normal breath sounds, no respiratory distress, no accessory muscle use Gastrointestinal: normal bowel sounds, non tender, soft Neurologic/Psychiatric: alert, normal mood/affect, oriented x 3 Skin: normal color, warm/dry Dental Procedures: Dental I&D Progress/Results/Core Measures Results/Orders Vital Signs/I&O Vital Sign - Last 12Hours 10/23/16 10:01 Temp 97.5 Pulse 99 Resp 18 B/P (MAP) 133/87 Pulse Ox 98 O2 Delivery Room Air Blood Pressure Mean: 102 Departure Impression Impression: Primary Impression: Dental caries Additional Impression: Otitis media of left ear Disposition: HOME, SELF-CARE Condition: Stable Departure-Patient Inst. Decision time for Depature: 11:02 Referrals: [facility] (PCP) Primary Care Physician ALEXEI DELGADILLO APRN (Family) Primary Care Physician Patient Instructions: Dental Pain (DC) Add. Discharge Instructions: 1. Medication as directed 2. Call your dentist on Monday morning to request a sooner evaluation in December All discharge instructions reviewed with patient and/or family. Voiced understanding. Scripts Hydrocodone/Acetaminophen ([place] 5-325 Tablet) 1 Each Tablet 1 EACH PO Q6H Y for PAIN-SEVERE, #10 TAB Do not fill unless the amoxicillin is also filled Prov: LIZBETH SALAZAR APRN 10/23/16 Oxymetazoline HCl (Afrin) 15 Ml Mist 15 ML NS BID Y for CONGESTION, #1 EA Do not use longer than 3 days Prov: LIZBETH SALAZAR APRN 10/23/16 Amoxicillin (Amoxicillin) 500 Mg Capsule 500 MG PO TID, #21 CAP Prov: LIZBETH SALAZAR APRN 10/23/16 LIZBETH SALAZAR APRN Oct 23, 2016 11:04
[2016-10-23 11:10] VITALS: BP 133/87
== END 2016-10-23 11:07 | disposition home or self-care (01) ==
LOC: EDUNIT# 09:37 → ER 09:38
DX: K02.9 Dental caries, unspecified (principal); H66.92 Otitis media, unspecified, left ear; D64.9 Anemia, unspecified; F90.9 Attention-deficit hyperactivity disorder, unspecified type; F41.9 Anxiety disorder, unspecified; F32.9 Major depressive disorder, single episode, unspecified; F91.3 Oppositional defiant disorder; K52.9 Noninfective gastroenteritis and colitis, unspecified; G43.909 Migraine, unspecified, not intractable, without status migrainosus; J45.909 Unspecified asthma, uncomplicated; F17.210 Nicotine dependence, cigarettes, uncomplicated; Z79.84 Long term (current) use of oral hypoglycemic drugs; Z98.51 Tubal ligation status; Z98.818 Other dental procedure status; Z90.89 Acquired absence of other organs; Z87.59 Personal history of other complications of pregnancy, childbirth and the puerperium; Z87.81 Personal history of (healed) traumatic fracture; Z82.49 Family history of ischemic heart disease and other diseases of the circulatory system; Z80.49 Family history of malignant neoplasm of other genital organs
CPT/HCPCS: 99282

== ENCOUNTER 2017-02-20 00:48 | Emergency (ER) | payer MEDICAID ==
[~2017-02-20] VITALS: Ht 165.1 cm; Wt 124.7 kg
[~2017-02-20 00:48] MED LIST changes: +ACHD5005 PO; +AZIT250T12 PO; -AZIT250T5 PO; +FLUT9.9S NS; +GABA-486 PO; -HYDR-3812 PO; +HYDR50TA76 PO; +LISD60CA PO; +METF500T4 PO; +NAPR-1071 PO; -NAPR500T PO; +OXYM15MI4 NS; +iron PO
[2017-02-20] MEDS ORDERED: HYDROcodone/APAP 7.5 MG/325 MG (LORTAB, LORCET PLUS) TABLET PO STA (01:19)
--- NOTE | 2017-02-20 01:46 | ED Lower Extremity ---
General Chief Complaint: Lower Extremity Stated Complaint: FALL ANKLE INJ Nursing Triage Note: PT TO ED 8 PER W/C W/ C/O RT ANKLE PAIN ONSET AFTER STEPPING OFF A STEP WRONG SHE WAS LEAVING WORK. SWELLING ET DEFORMITY NOTED TO RT ANKLE Nursing Sepsis Screen: No Definite Risk Source: patient Exam Limitations: no limitations History of Present Illness Time seen by provider: 01:17 Initial Comments Here with report of right ankle pain. States that she was leaving work and stepped off a step and twisted her ankle and fell. Complains of significant pain to the lateral aspect of the right ankle. Denies other injury. Reports that she's had previous injury to this ankle. Onset: just prior to arrival Severity: moderate Pain/Injury Location: right ankle Method of Injury: fell, twisted Modifying Factors: Improves With Immobilization, Worse With Movement Allergies and Home Medications Allergies Coded Allergies: No Known Drug Allergies (Unverified , 03/11/13) Home Medications Albuterol Sulfate 6.7 Gm Hfa.aer.ad, 2 PUFF IH Q6H PRN for SHORTNESS OF BREATH, (Reported) Amoxicillin 500 Mg Capsule, 500 MG PO TID, #21 Prescribed by: LIZBETH SALAZAR on 10/23/16 1104 Dextroamphetamine/Amphetamine 10 Mg Tablet, #28 (Reported) Fluticasone Propionate 9.9 Ml [place].susp, 1 SPRAY NS DAILY, (Reported) Gabapentin 100 Mg Capsule, 100 MG PO BID, (Reported) Hydrocodone/Acetaminophen 1 Each Tablet, 1 EACH PO Q6H PRN for PAIN-SEVERE, #10 Do not fill unless the amoxicillin is also filled Prescribed by: LIZBETH SALAZAR on 10/23/16 1104 Hydroxyzine HCl 50 Mg Tablet, 50 MG PO HS, (Reported) Lisdexamfetamine Dimesylate 60 Mg Capsule, 60 MG PO DAILY, (Reported) Metformin HCl 500 Mg Tablet, 500 MG PO with dinner, (Reported) Oxymetazoline HCl 15 Ml Mist, 15 ML NS BID PRN for CONGESTION, #1 Do not use longer than 3 days Prescribed by: LIZBETH SALAZAR on 10/23/16 1104 Vortioxetine Hydrobromide 20 Mg Tablet, #30 (Reported) [iron] , 2 TAB PO DAILY, (Reported) Constitutional: see HPI, No chills, No fever Respiratory: no symptoms reported Cardiovascular: no symptoms reported Gastrointestinal: no symptoms reported Musculoskeletal: see HPI, joint pain, joint swelling Skin: no symptoms reported Psychiatric/Neurological: No Symptoms Reported Past Xdkzaqp-Hvqkva-Ysxmzu Hx Patient Social History Alcohol Use: Denies Use Recreational Drug Use: No Smoking Status: Current Everyday Smoker Type Used: Cigarettes 2nd Hand Smoke Exposure: No Recent Foreign Travel: No Contact w/Someone Who Travel: No Recent Infectious Disease Expo: No Recent Hopitalizations: No Physical Abuse: No Sexual Abuse: No Mistreated: No Fear: No Immunizations Up To Date Tetanus Booster (TDap): Unknown Date of Pneumonia Vaccine: Feb 21, 2012 Date of Influenza Vaccine: Nov 04, 2015 Seasonal Allergies Seasonal Allergies: Yes Surgeries History of Surgeries: Yes (WISDOM TEETH REMOVED. CERVIX BIOPSY; LEFT ARM FX/ ORIF) Surgeries: Adenoidectomy, Section, Gallbladder, Orthopedic, Tonsillectomy, Tubal Ligation Respiratory History of Respiratory Disorde: Yes ("SITUATIONAL" ASTHMA--DOES NOT ROUTINELY USE AN INHALER) Respiratory Disorders: Asthma, Pneumonia Cardiovascular History of Cardiac Disorders: No Neurological History of Neurological Disord: Yes Neurological Disorders: Headaches /Migraines Reproductive System Hx Reproductive Disorders: No Female Reproductive Disorders: Denies Gastrointestinal History of Gastrointestinal Di: Yes Gastrointestinal Disorders: Chronic Diarrhea, Esophagitis Musculoskeletal History of Musculoskeletal Dis: Yes (LEFT ARM FX/ORIF, right ankle fx) Musculoskeletal Disorders: Arthritis, Chronic Back Pain, Fractures Endocrine History of Endocrine Disorders: No Cancer History of Cancer: No Psychosocial History of Psychiatric Problem: Yes Behavioral Health Disorders: ADD/ADHD, Anxiety, ODD, Depression Suicide Risk Score: 0 Integumentary History of Skin or Integumenta: Yes (very sensitive skin-breaks out in rashes frequently) Skin/Integumentary Disorders: Psoriasis Blood Transfusions History of Blood Disorders: Yes (anemia, ) Adverse Reaction to a Blood Tr: No Family Medical History Significant Family History: Heart Disease, Cancer, Diabetes Family Medial History: Diabetes mellitus 19 MOTHER FH: COPD (chronic obstructive pulmonary disease) 19 MOTHER FH: schizophrenia 19 MOTHER FH: uterine cancer Fibromyalgia 19 MOTHER Physical Exam Vital Signs Vital Sign - Last 12Hours 02/20/17 01:14 Temp 97.5 Pulse 105 Resp 20 B/P (MAP) 147/101 (116) Pulse Ox 99 O2 Delivery Room Air Capillary Refill : Less Than 3 Seconds General Appearance: WD/WN, no apparent distress Cardiovascular: regular rate, rhythm, no murmur Respiratory: lungs clear, normal breath sounds Hips: bilateral hip non-tender, bilateral hip normal inspection, bilateral hip normal range of motion Ankles: right ankle deformity, right ankle ecchymosis, right ankle pain, right ankle soft tissue tenderness, right ankle swelling, right ankle other (findings are on the lateral aspect.) Neurologic/Psychiatric: alert, oriented x 3 Skin: normal color, warm/dry Dental Procedures: Dental I&D Progress/Results/Core Measures Results/Orders My Orders Orders - BLAKE BRO MD Ankle, Right, 3 Views (02/20/17 01:17) Hydrocodone/Apap 7.5/325 Tab (Lortab 7. (02/20/17 01:19) Vital Signs/I&O Vital Sign - Last 12Hours 02/20/17 01:14 Temp 97.5 Pulse 105 Resp 20 B/P (MAP) 147/101 (116) Pulse Ox 99 O2 Delivery Room Air Blood Pressure Mean: 116 Progress Note : Progress Note Seen and evaluated. X-ray right ankle ordered. Hydrocodone 7.5 mg one tab by mouth given. Walking boot applied. Alberto wrap applied. Crutches given. No acute fracture noted but does have fairly significant swelling and pain. Discharged home with return precautions. Patient verbalize understanding instructions and agreement with plan. Diagnostic Imaging Diagonstic Imaging: Xray Plain Films/CT/US/NM/MRI: ankle Comments No acute fracture Departure Impression Impression: Primary Impression: Sprain of ankle, right Qualified Codes: S93.401A - Sprain of unspecified ligament of right ankle, initial encounter Disposition: 01 HOME, SELF-CARE Condition: Improved Departure-Patient Inst. Decision time for Depature: 01:56 [place] [facility] [place] Primary Care Physician ALEXEI DELGADILLO APRN (Family) Primary Care Physician Patient Instructions: Sprain (DC) Add. Discharge Instructions: All discharge instructions reviewed with patient and/or family. Voiced understanding. Use Alberto wrap to affected area as needed for comfort and support. Use ice packs to affected area 20 minutes per hour over the next one to 2 days. Elevate the foot as much as possible. You may use the walking boot for stability and comfort over the next several days and then as needed. Use crutches as needed over the next several days. You should exercise the foot by moving it around to increase range of motion several times daily as swelling and pain decrease. Follow-up with your Dr. in a few days for recheck. Return for worse pain, swelling, weakness, breathing problems or other concerns as needed. You may use ibuprofen 800 mg every 8 hours as needed for pain. You may use Tylenol 1000 mg every 8 hours as needed for pain. BLAKE BRO MD Feb 20, 2017 01:46
[2017-02-20 02:02] VITALS: BP 141/99
--- NOTE | 2017-02-20 07:34 | Diagnostic Imaging Report ---
INDICATION: Right ankle pain and bruising. Swelling. FINDINGS: The distal tibia and fibula demonstrate no evidence of cortical disruption or acute fracture though there does appear to be some mild widening of the ankle mortise. Alignment of the bones of the foot appear normal where visualized. There is mild soft tissue swelling demonstrated about the ankle. IMPRESSION: 1. There is no radiographic evidence of cortical disruption to suggest an acute fracture though there does appear to be slight widening of the medial clear space and the ankle mortise. Underlying ligamentous injury could not be excluded. If the patient has continued symptomatology, MRI could be considered for further assessment. Dictated by: Dictated on workstation # [id number]
== END 2017-02-20 02:02 | disposition home or self-care (01) ==
LOC: EDUNIT# 00:48 → ER 00:51
DX: S93.401A Sprain of unspecified ligament of right ankle, initial encounter (principal); J45.909 Unspecified asthma, uncomplicated; G43.909 Migraine, unspecified, not intractable, without status migrainosus; F90.9 Attention-deficit hyperactivity disorder, unspecified type; F41.9 Anxiety disorder, unspecified; F32.9 Major depressive disorder, single episode, unspecified; F17.210 Nicotine dependence, cigarettes, uncomplicated; Z87.19 Personal history of other diseases of the digestive system; Z90.89 Acquired absence of other organs; Z82.49 Family history of ischemic heart disease and other diseases of the circulatory system; Z80.49 Family history of malignant neoplasm of other genital organs; Z98.51 Tubal ligation status; Z87.01 Personal history of pneumonia (recurrent); Z87.59 Personal history of other complications of pregnancy, childbirth and the puerperium; Z79.82 Long term (current) use of aspirin; X50.0XXA Overexertion from strenuous movement or load, initial encounter; W10.9XXA Fall (on) (from) unspecified stairs and steps, initial encounter; Y92.59 Other trade areas as the place of occurrence of the external cause
CPT/HCPCS: 73610; 99283

== ENCOUNTER 2017-08-27 14:34 | Observation (INO) | payer MEDICAID ==
[2017-08-27] VITALS (11 sets, daily range): BP systolic 89–127; BP diastolic 43–77
[~2017-08-27] VITALS: Ht 165.1 cm; Wt 132.0 kg
[~2017-08-27 14:34] MED LIST changes: -FERR-74 PO; +FERR325T18 PO; +HYDR-34 PO; -METF500T4 PO; +METF500T5 PO; -VORT20TA; +VORT20TA PO
[2017-08-27] MEDS ORDERED: NS IV 1000 ML 1,000 ML IV SCH (14:40)
[2017-08-27] MEDS ORDERED: NALOXONE 0.4 MG/ML 1 ML (NARCAN) VIAL IV ONE (14:45)
--- NOTE | 2017-08-27 14:50 | ED Psychosocial ---
General Stated Complaint: OVERDOSE Source: patient, EMS Exam Limitations: no limitations History of Present Illness Date Seen by Provider: Aug 27, 2017 Time Seen by Provider: 14:35 Initial Comments Patient presents ER by EMS with chief complaint that she only took 7 tablets 150 mg trazodone prescribed her today. Intent is unknown. When EMS arrived they said the patient was obtunded and unable to give any meaningful history but did respond to noxious stimuli. She had good vital signs except her blood pressure which was in the low 80s systolic. They started a liter of saline which began to improve her blood pressure. Family is not aware of anything else. She also had a full bottle of trazodone 50 mg 15 tablets from 2017 in her backpack as well as a empty bottle from August 10, 2017 that was written for 15 total tablets unknown whether she's had previous suicide attempt and suicidal ideation or inpatient psychiatric treatment. All noxious stimuli the patient will answer what her name is and her age but not much else intelligible. Allergies and Home Medications Allergies Coded Allergies: No Known Drug Allergies (Unverified , 03/11/13) Home Medications Albuterol Sulfate 6.7 Gm Hfa.aer.ad, 2 PUFF IH Q6H PRN for SHORTNESS OF BREATH, (Reported) Amoxicillin 500 Mg Capsule, 500 MG PO TID Prescribed by: LIZBETH SALAZAR on 10/23/16 1104 Fluticasone Propionate 9.9 Ml [place].susp, 1 SPRAY NS DAILY, (Reported) Gabapentin 100 Mg Capsule, 100 MG PO BID, (Reported) Hydrocodone/Acetaminophen 1 Each Tablet, 1 EACH PO Q6H PRN for PAIN-SEVERE Do not fill unless the amoxicillin is also filled Prescribed by: LIZBETH SALAZAR on 10/23/16 1104 Hydroxyzine HCl 50 Mg Tablet, 50 MG PO HS, (Reported) Lisdexamfetamine Dimesylate 60 Mg Capsule, 60 MG PO DAILY, (Reported) Metformin HCl 500 Mg Tablet, 500 MG PO with dinner, (Reported) Oxymetazoline HCl 15 Ml Mist, 15 ML NS BID PRN for CONGESTION Do not use longer than 3 days Prescribed by: LIZBETH SALAZAR on 10/23/16 1104 [iron] , 2 TAB PO DAILY, (Reported) Patient Home Medication List Home Medication List Reviewed: Yes Constitutional: see HPI (no meaningful review of systems given the patient's stuporous state.) Past Pyenjva-Cwijuu-Encgch Hx Patient Social History Smoking Status: Current Everyday Smoker Type Used: Cigarettes 2nd Hand Smoke Exposure: No Recent Hopitalizations: No Immunizations Up To Date Tetanus Booster (TDap): Unknown Date of Pneumonia Vaccine: Feb 21, 2012 Date of Influenza Vaccine: Nov 04, 2015 Seasonal Allergies Seasonal Allergies: Yes Past Medical History Surgeries: Yes (WISDOM TEETH REMOVED. CERVIX BIOPSY; LEFT ARM FX/ORIF) Adenoidectomy, Section, Gallbladder, Orthopedic, Tonsillectomy, Tubal Ligation Respiratory: Yes ("SITUATIONAL" ASTHMA--DOES NOT ROUTINELY USE AN INHALER) Asthma, Pneumonia Cardiac: No Neurological: Yes Headaches /Migraines Reproductive Disorders: No Female Reproductive Disorders: Denies Gastrointestinal: Yes Chronic Diarrhea, Esophagitis Musculoskeletal: Yes (LEFT ARM FX/ORIF, right ankle fx) Arthritis, Chronic Back Pain, Fractures Endocrine: No Cancer: No Psychosocial: Yes ADD/ADHD, Anxiety, ODD, Depression Integumentary: Yes (very sensitive skin-breaks out in rashes frequently) Psoriasis Blood Disorders: Yes (anemia, ) Adverse Reaction/Blood Tranf: No Family Medical History Diabetes mellitus 19 MOTHER FH: COPD (chronic obstructive pulmonary disease) 19 MOTHER FH: schizophrenia 19 MOTHER FH: uterine cancer Fibromyalgia 19 MOTHER Heart Disease, Cancer, Diabetes Physical Exam Vital Signs - First Documented 08/27/17 14:34 Temp 97.3 Pulse 84 Resp 15 B/P (MAP) 108/76 (87) Pulse Ox 99 O2 Delivery Room Air Capillary Refill : Height, Weight, BMI Height: 5', 5.00" Weight: 275lbs 6.0oz, [id number] Method:Stated ,49.2BMI General Appearance: obese, other (obtunded) HEENT: PERRL/EOMI, normal ENT inspection, TMs normal, pharynx normal Neck: non-tender, supple, normal inspection Respiratory: chest non-tender, lungs clear, normal breath sounds, no respiratory distress, no accessory muscle use Cardiovascular: normal peripheral pulses, regular rate, rhythm, no edema Peripheral Pulses: 2+ Radial Pulses (R), 2+ Radial Pulses (L) Gastrointestinal: normal bowel sounds, non tender, soft Extremities: normal range of motion, normal inspection, no pedal edema, normal capillary refill Neurologic/Psychiatric: other (oriented to self only. GCS 10 [id number]) Procedures/Interventions Dental Procedures: Dental I&D Progress/Results/Core Measures Results/Orders Lab Results Laboratory Tests Test 08/27/17 14:58 08/27/17 15:00 Range/Units White Blood Count 9.1 4.3-11.0 10^3/uL Red Blood Count 3.27 L 4.35-5.85 10^6/uL Hemoglobin 9.6 L 11.5-16.0 G/DL Hematocrit 29 L 35-52 % Mean Corpuscular Volume 89 80-99 FL Mean Corpuscular Hemoglobin 29 25-34 PG Mean Corpuscular Hemoglobin Concent 33 32-36 G/DL Red Cell Distribution Width 13.7 10.0-14.5 % Platelet Count 247 130-400 10^3/uL Mean Platelet Volume 10.8 H 7.4-10.4 FL Neutrophils (%) (Auto) 70 42-75 % Lymphocytes (%) (Auto) 25 12-44 % Monocytes (%) (Auto) 5 0-12 % Eosinophils (%) (Auto) 1 0-10 % Basophils (%) (Auto) 0 0-10 % Neutrophils # (Auto) 6.4 1.8-7.8 X 10^3 Lymphocytes # (Auto) 2.3 1.0-4.0 X 10^3 Monocytes # (Auto) 0.5 0.0-1.0 X 10^3 Eosinophils # (Auto) 0.1 0.0-0.3 10^3/uL Basophils # (Auto) 0.0 0.0-0.1 10^3/uL Sodium Level 142 135-145 MMOL/L Potassium Level 2.8 L 3.6-5.0 MMOL/L Chloride Level 116 H 98-107 MMOL/L Carbon Dioxide Level 16 L 21-32 MMOL/L Anion Gap 10 5-14 MMOL/L Blood Urea Nitrogen 9 7-18 MG/DL Creatinine 0.61 0.60-1.30 MG/DL Estimat Glomerular Filtration Rate > 60 BUN/Creatinine Ratio 15 Glucose Level 81 70-105 MG/DL Calcium Level 6.5 L 8.5-10.1 MG/DL Total Bilirubin 0.2 0.1-1.0 MG/DL Aspartate Amino Transf (AST/SGOT) 42 H 5-34 U/L Alanine Aminotransferase (ALT/SGPT) 39 0-55 U/L Alkaline Phosphatase 57 40-136 U/L Total Protein 4.8 L 6.4-8.2 GM/DL Albumin 3.0 L 3.2-4.5 GM/DL Salicylates Level < 5.0 L 5.0-20.0 MG/DL Acetaminophen Level < 10 L 10-30 UG/ML Serum Alcohol < 10 <10 MG/DL Urine Color YELLOW Urine Clarity CLEAR Urine pH 5 5-9 Urine Specific [place] 1.025 H 1.016-1.022 Urine Protein 3+ H NEGATIVE Urine Glucose (UA) NEGATIVE NEGATIVE Urine Ketones 2+ H NEGATIVE Urine Nitrite POSITIVE H NEGATIVE Urine Bilirubin 1+ H NEGATIVE Urine Urobilinogen 8 H NORMAL MG/DL Urine Leukocyte Esterase 2+ H NEGATIVE Urine RBC (Auto) NEGATIVE NEGATIVE Urine RBC NONE /HPF Urine WBC 2-5 /HPF Urine Squamous Epithelial Cells 5-10 /HPF Urine Crystals NONE /LPF Urine Bacteria NEGATIVE /HPF Urine Casts PRESENT /LPF Urine Hyaline Casts 5-10 H /LPF Urine Mucus LARGE H /LPF Urine Culture Indicated YES Urine Opiates Screen NEGATIVE NEGATIVE Urine Oxycodone Screen NEGATIVE NEGATIVE Urine Methadone Screen NEGATIVE NEGATIVE Urine Propoxyphene Screen NEGATIVE NEGATIVE Urine Barbiturates Screen NEGATIVE NEGATIVE Ur Tricyclic Antidepressants Screen NEGATIVE NEGATIVE Urine Phencyclidine Screen NEGATIVE NEGATIVE Urine Amphetamines Screen POSITIVE H NEGATIVE Urine Methamphetamines Screen POSITIVE H NEGATIVE Urine Benzodiazepines Screen NEGATIVE NEGATIVE Urine Cocaine Screen NEGATIVE NEGATIVE Urine Cannabinoids Screen NEGATIVE NEGATIVE My Orders Orders - YULY,LORETO J Ua Culture If Indicated (08/27/17 14:40) Cbc With Automated Diff (08/27/17 14:40) Comprehensive Metabolic Panel (08/27/17 14:40) Alcohol (08/27/17 14:40) Drug Screen Stat (Urine) (08/27/17 14:40) Acetaminophen (08/27/17 14:40) Salicylate (08/27/17 14:40) Ekg Tracing (08/27/17 14:40) Saline Lock/Iv-Start (08/27/17 14:40) Monitor-Rhythm Ecg Trace Only (08/27/17 14:40) Saline Lock/Iv-Start (08/27/17 14:40) Ns Iv 1000 Ml (Sodium Chloride 0.9%) (08/27/17 14:40) Catheter(Urinary) Insert & Ass 03,15 (08/27/17 14:40) Naloxone Injection (Narcan Injection) (08/27/17 14:45) Chest 1 View, Ap/Pa Only (08/27/17 15:03) Urine Culture (08/27/17 15:00) Potassium Cl 10meq/50ml Ivpb (Kcl 10 Meq (08/27/17 15:30) Ceftriaxone Injection (Rocephin Injectio (08/27/17 16:00) Medications Given in ED Current Medications Medications Dose Ordered Sig/Ellie Route Start Time Stop Time Status Last Admin Dose Admin Naloxone HCl 0.4 mg ONCE ONCE IV 08/27/17 14:45 08/27/17 14:46 DC 08/27/17 14:50 0.4 MG Vital Signs/I&O 08/27/17 14:34 Temp 97.3 Pulse 84 Resp 15 B/P (MAP) 108/76 (87) Pulse Ox 99 O2 Delivery Room Air Progress Progress Note #1: Time: 14:51 Progress Note We discussed the case with poison control recommends symptomatic support. Look at the QTC on the EKG and it was greater than 500 or she has low magnesium given 1-2 g of magnesium. Expect hypotension and bradycardia and treat symptomatically with atropine. You can use benzos for seizure. Toxic ranges usually 10 times the normal dose. The patient is only 7 times her normal dose according to family history. They also suggested the patient is Joey diaphoretic sleepy that she probably took the medications white some time. She will need observed until she is symptom-free. As it would be okay to use Narcan but will not help her trazodone directly. Progress Note #2: Time: 15:51 Progress Note Patient nitrites in her urine and some blood but fairly low urine output on the Soler catheter. We are going to go ahead and Cover her with some Rocephin for now. Had a discussion with the and he says all of the meds that she takes are in the black box that he brought in with a box only contains scripts that are over a year old. Some of the scripts are 3 years old. There are no recent prescription bottles. confirms that he was in the other room when he heard her fall down the bathroom and he went in to check on her and when he has what happened she held up the bottle of trazodone and said she took 7. He did not see any other bottles around. He says she's been managing her own meds for many years before he her and he is not aware what all she is on. He denies that she's had any recent suicidal ideation. He denies she has a history of suicide attempt or inpatient psychiatric care. Initial ECG Impression Date: Aug 27, 2017 Initial ECG Impression Time: 14:38 Initial ECG Rate: 74 Initial ECG Rhythm: Normal Sinus Initial ECG Intervals: QT (462) Initial ECG Impression: Normal, Nonspecific Changes (solitary PVC seen) Initial ECG Comparisson: No Previous ECG Available Comment No ST elevation or depression. QTC is within normal limits. Diagnostic Imaging Diagonstic Imaging: Xray Plain Films/CT/US/NM/MRI: chest (1v) [facility] [place], [place] NAME: RONNIE OLIVER MED REC#: [id number] PT STATUS: REG ER : 1985 PHYSICIAN: LORETO EMERY MD ADMIT DATE: 08/27/17/ER Draft Date of Exam:08/27/17 CHEST 1 VIEW, AP/PA ONLY INDICATION: Overdose. Unable to follow breathing instructions. EXAMINATION: Chest, 08/27/2017. COMPARISON: 02/02/2016. FINDINGS: The heart is slightly prominent. The pulmonary vasculature is prominent as well but could be due to the markedly low lung volumes. There are increased markings for both lungs also noted but likely due to the lung volumes as well, followup recommended as clinically warranted. No pneumothorax or effusions. IMPRESSION: Findings described above most likely caused by the low lung volumes. Definite acute abnormality is not seen but if there is consistent concern further imaging with a two-view chest with better inspiratory volume could be performed. Dictated on workstation # [id number] Dict: 08/27/17 1530 Trans: 08/27/17 1533 [facility] [id number] Interpreted by: NII CRAMER MD Electronically signed by: Reviewed: Reviewed by Me Departure Communication (Admissions) Time/Spoke to Admitting Phy: 15:55 Dr. Stevenson discussed case lab imaging findings and she agrees to observe the patient upstairs in the ICU. Impression Primary Impression: Overdose of trazodone Additional Impression: Hypotension Qualified Codes: I95.9 - Hypotension, unspecified Disposition: 09 ADMITTED INPATIENT Condition: Stable Admissions Decision to Admit Reason: Admit from ER (General) Decision to Admit/Date: Aug 27, 2017 Time/Decision to Admit Time: 15:54 Departure-Patient Inst. Referrals: [facility]/JACQUELINE (PCP) Primary Care Physician ALEXEI DELGADILLO APRN (Family) Primary Care Physician Copy Copies To 1: BARON STEVENSON TITUS J Aug 27, 2017 14:50
[2017-08-27 15:07] LABS: CLARITY,URINE CLEAR; COLOR,URINE YELLOW; GLUCOSE, URINE (UA) NEGATIVE (NEGATIVE); KETONES,URINE 2+ (NEGATIVE); LEUKOCYTE ESTERASE ,URINE 2+ (NEGATIVE); NITRITE,URINE POSITIVE (NEGATIVE); PH,URINE 5 (5-9); PROTEIN,URINE 3+ (NEGATIVE); UROBILINOGEN,URINE 8 MG/DL (NORMAL)
[2017-08-27 15:07] LABS: BASOPHILS % (AUTO) 0 % (0-10); EOSINOPHILS # (AUTO) 0.1 10^3/uL (0.0-0.3); EOSINOPHILS % (AUTO) 1 % (0-10); HEMATOCRIT 29 % (35-52); HEMOGLOBIN 9.6 G/DL (11.5-16.0); LYMPHOCYTES # (AUTO) 2.3 X 10^3 (1.0-4.0); LYMPHOCYTES % (AUTO) 25 % (12-44); MEAN CORPUSCULAR HEMOGLOBIN 29 PG (25-34); MEAN CORPUSCULAR HGB CONC 33 G/DL (32-36); MEAN CORPUSCULAR VOLUME 89 FL (80-99); MEAN PLATELET VOLUME 10.8 FL (7.4-10.4); MONOCYTES # (AUTO) 0.5 X 10^3 (0.0-1.0); MONOCYTES % (AUTO) 5 % (0-12); NEUTROPHILS # (AUTO) 6.4 X 10^3 (1.8-7.8); NEUTROPHILS % (AUTO) 70 % (42-75); PLATELET COUNT 247 10^3/uL (130-400); RED BLOOD COUNT 3.27 10^6/uL (4.35-5.85); RED CELL DISTRIBUTION WIDTH 13.7 % (10.0-14.5); WHITE BLOOD COUNT 9.1 10^3/uL (4.3-11.0)
[2017-08-27 15:20] LABS: AMPHETAMINE SCREEN, URINE POSITIVE (NEGATIVE); BARBITURATE SCREEN URINE NEGATIVE (NEGATIVE); BENZODIAZEPINES SCREEN URINE NEGATIVE (NEGATIVE); CANNABINOID SCREEN, URINE NEGATIVE (NEGATIVE); COCAINE SCREEN URINE NEGATIVE (NEGATIVE); METHADONE STAT NEGATIVE (NEGATIVE); METHAMPHETAMINE SCREEN URINE S POSITIVE (NEGATIVE); OPIATE SCREEN URINE NEGATIVE (NEGATIVE); OXYCODONE STAT NEGATIVE (NEGATIVE); PROPOXYPHENE STAT NEGATIVE (NEGATIVE); TRICYCLIC ANTIDEPRESSANTS SCRE NEGATIVE (NEGATIVE)
[2017-08-27 15:23] LABS: BILIRUBIN,URINE 1+ (NEGATIVE)
[2017-08-27 15:24] LABS: BACTERIA,URINE NEGATIVE /HPF
[2017-08-27 15:27] LABS: ALANINE AMINOTRANSFERASE 39 U/L (0-55); ALKALINE PHOSPHATASE 57 U/L (40-136); BILIRUBIN,TOTAL 0.2 MG/DL (0.1-1.0); BUN/CREATININE RATIO 15; CALCIUM 6.5 MG/DL (8.5-10.1); CARBON DIOXIDE 16 MMOL/L (21-32); CHLORIDE 116 MMOL/L (98-107); CREATININE SERUM 0.61 MG/DL (0.60-1.30); GFR ESTIMATED > 60; GLUCOSE 81 MG/DL (70-105); POTASSIUM 2.8 MMOL/L (3.6-5.0); SALICYLATE < 5.0 MG/DL (5.0-20.0); SODIUM 142 MMOL/L (135-145); TOTAL PROTEIN 4.8 GM/DL (6.4-8.2)
[2017-08-27] MEDS ORDERED: POTASSIUM CL 10MEQ/50ML IVPB 50 ML IV ONE (15:30)
[2017-08-27 15:31] LABS: ACETAMINOPHEN < 10 UG/ML (10-30)
--- NOTE | 2017-08-27 15:34 | Diagnostic Imaging Report ---
INDICATION: Overdose. Unable to follow breathing instructions. EXAMINATION: Chest, 08/27/2017. COMPARISON: 02/02/2016. FINDINGS: The heart is slightly prominent. The pulmonary vasculature is prominent as well but could be due to the markedly low lung volumes. There are increased markings for both lungs also noted but likely due to the lung volumes as well, followup recommended as clinically warranted. No pneumothorax or effusions. IMPRESSION: Findings described above most likely caused by the low lung volumes. Definite acute abnormality is not seen but if there is consistent concern further imaging with a two-view chest with better inspiratory volume could be performed. Dictated by: Dictated on workstation # [id number]
[2017-08-27] MEDS ORDERED: 1/2 NS W/KCL 20 MEQ/L 1,000 ML IV ONE (15:55)
[2017-08-27] MEDS ORDERED: cefTRIAXone INJECTION 1,000 MG in NS (IVPB) 50 ML IV ONE (16:00)
[2017-08-27] MEDS ORDERED: ONDANSETRON 4 MG/2 ML (SDV) Z0FRAN IV PRN (16:45)
[2017-08-27] MEDS ORDERED: ACETAMINOPHEN 500 MG TAB (TYLENOL) PO PRN (16:45)
[2017-08-27] MEDS ORDERED: CATHETER FLUSH 10 ML SYR IV PRN (17:00)
[2017-08-27] MEDS: POTASSIUM CL 10 MEQ/50 ML IVPB (PRE-MIX) IV SCH ×2 (17:57→19:33)
[2017-08-27] MEDS: 1/2 NS W/KCL 20 MEQ/L 1,000 ML IV SCH ×2 (17:57→20:51)
[2017-08-28] VITALS (16 sets, daily range): BP systolic 86–145; BP diastolic 51–93
[2017-08-28] MEDS: 1/2 NS W/KCL 20 MEQ/L 1,000 ML IV SCH ×2 (02:00→06:52)
[2017-08-28 03:52] LABS: BASOPHILS % (AUTO) 0 % (0-10); EOSINOPHILS # (AUTO) 0.1 10^3/uL (0.0-0.3); EOSINOPHILS % (AUTO) 1 % (0-10); HEMATOCRIT 36 % (35-52); HEMOGLOBIN 11.6 G/DL (11.5-16.0); LYMPHOCYTES # (AUTO) 4.2 X 10^3 (1.0-4.0); LYMPHOCYTES % (AUTO) 39 % (12-44); MEAN CORPUSCULAR HEMOGLOBIN 29 PG (25-34); MEAN CORPUSCULAR HGB CONC 33 G/DL (32-36); MEAN CORPUSCULAR VOLUME 89 FL (80-99); MEAN PLATELET VOLUME 10.9 FL (7.4-10.4); MONOCYTES # (AUTO) 0.5 X 10^3 (0.0-1.0); MONOCYTES % (AUTO) 5 % (0-12); NEUTROPHILS % (AUTO) 55 % (42-75); PLATELET COUNT 309 10^3/uL (130-400); RED BLOOD COUNT 3.99 10^6/uL (4.35-5.85); RED CELL DISTRIBUTION WIDTH 14.3 % (10.0-14.5); WHITE BLOOD COUNT 10.9 10^3/uL (4.3-11.0)
[2017-08-28 04:07] LABS: BUN/CREATININE RATIO 8; CALCIUM 7.8 MG/DL (8.5-10.1); CARBON DIOXIDE 19 MMOL/L (21-32); CHLORIDE 113 MMOL/L (98-107); CREATININE SERUM 0.65 MG/DL (0.60-1.30); GFR ESTIMATED > 60; GLUCOSE 86 MG/DL (70-105); MAGNESIUM 1.7 MG/DL (1.8-2.4); PHOSPHORUS 2.7 MG/DL (2.3-4.7); POTASSIUM 4.1 MMOL/L (3.6-5.0); SODIUM 139 MMOL/L (135-145)
[2017-08-28] MEDS ORDERED: POTASSIUM CL 10MEQ/50ML IVPB 50 ML IV SCH (06:00)
[2017-08-28] MEDS ORDERED: MAGNESIUM 1 GM/100 ML IVPB 100 ML IV SCH (06:00)
[2017-08-28] MEDS ORDERED: KCL 20 MEQ TAB (K-DUR) PO SCH (06:00)
[2017-08-28] MEDS: MAGNESIUM 1 GM/100 ML IVPB 100 ML IV SCH ×2 (08:23→09:23)
[2017-08-28] MEDS ORDERED: LISD40CA3 PO (09:45)
[2017-08-28] MEDS ORDERED: FERR-84 PO (09:48)
--- NOTE | 2017-08-28 11:02 | History & Physicial (CHS) ---
IKE GOMEZ MEDICAL STUDENT 08/28/17 11:02am: HPI History of Present Illness: 31 year old female with Hx of ADD, anxiety, depression and anemia was admitted yesterday from the ED for OD on her trazadone per pt's . Today pt states she took 7x 150mg Trazadone because she has been depressed over the last 4 days and wanted to sleep and "didn't really care if she woke up" but denies SI at this time. Pt states she has not done anything like this in the past. Pt admits slight headache this morning but denies and SOB, CP, N/V/D, Abd pain. Source: patient Time Seen by Provider: 07:30 Attending Physician Valerie Stevenson DO [facility] Center/[facility] Consult Date of Admission Aug 27, 2017 at 16:06 Home Medications Home Medications Reviewed patient Home Medication Reconciliation performed by pharmacy medication reconciliations records management technician and/or nursing. Patients Allergies have been reviewed. Allergies Coded Allergies: No Known Drug Allergies (Unverified , 03/11/13) DFO-Qagzsw-Fakjuy Hx Patient Social History Marrital Status: Alcohol Use: Denies Use Recreational Drug Use: Yes Drug of Choice: methamphetamine Smoking Status: Current Everyday Smoker Type Used: Cigarettes 2nd Hand Smoke Exposure: No Recent Foreign Travel: No Contact w/other who traveled: No Recent Hopitalizations: No Recent Infectious Disease Expo: No Physical Abuse Screen: No Sexual Abuse: No Immunizations Up To Date Tetanus Booster (TDap): Unknown Date of Pneumonia Vaccine: Feb 21, 2012 Date of Influenza Vaccine: Nov 04, 2015 Family Medical History Significant Family History: Heart Disease, Cancer, Diabetes Family History: Diabetes mellitus 19 MOTHER FH: COPD (chronic obstructive pulmonary disease) 19 MOTHER FH: schizophrenia 19 MOTHER FH: uterine cancer Fibromyalgia 19 MOTHER Review of Systems (CHC) Constitutional: no symptoms reported Respiratory: no symptoms reported Cardiovascular: no symptoms reported; No chest pain Gastrointestinal: no symptoms reported; No abdominal pain, No diarrhea, No nausea, No vomiting Psychiatric/Neurological: See HPI Reviewed Test Results Reviewed Test Results Lab Laboratory Tests Test 08/27/17 14:58 08/27/17 15:00 08/28/17 03:20 Range/Units White Blood Count 9.1 10.9 4.3-11.0 10^3/uL Red Blood Count 3.27 L 3.99 L 4.35-5.85 10^6/uL Hemoglobin 9.6 L 11.6 # 11.5-16.0 G/DL Hematocrit 29 L 36 35-52 % Mean Corpuscular Volume 89 89 80-99 FL Mean Corpuscular Hemoglobin 29 29 25-34 PG Mean Corpuscular Hemoglobin Concent 33 33 32-36 G/DL Red Cell Distribution Width 13.7 14.3 10.0-14.5 % Platelet Count 247 309 130-400 10^3/uL Mean Platelet Volume 10.8 H 10.9 H 7.4-10.4 FL Neutrophils (%) (Auto) 70 55 42-75 % Lymphocytes (%) (Auto) 25 39 12-44 % Monocytes (%) (Auto) 5 5 0-12 % Eosinophils (%) (Auto) 1 1 0-10 % Basophils (%) (Auto) 0 0 0-10 % Neutrophils # (Auto) 6.4 6.0 1.8-7.8 X 10^3 Lymphocytes # (Auto) 2.3 4.2 H 1.0-4.0 X 10^3 Monocytes # (Auto) 0.5 0.5 0.0-1.0 X 10^3 Eosinophils # (Auto) 0.1 0.1 0.0-0.3 10^3/uL Basophils # (Auto) 0.0 0.0 0.0-0.1 10^3/uL Sodium Level 142 139 135-145 MMOL/L Potassium Level 2.8 L 4.1 3.6-5.0 MMOL/L Chloride Level 116 H 113 H 98-107 MMOL/L Carbon Dioxide Level 16 L 19 L 21-32 MMOL/L Anion Gap 10 7 5-14 MMOL/L Blood Urea Nitrogen 9 5 L 7-18 MG/DL Creatinine 0.61 0.65 0.60-1.30 MG/DL Estimat Glomerular Filtration Rate > 60 > 60 BUN/Creatinine Ratio 15 8 Glucose Level 81 86 70-105 MG/DL Calcium Level 6.5 L 7.8 L 8.5-10.1 MG/DL Total Bilirubin 0.2 0.1-1.0 MG/DL Aspartate Amino Transf (AST/SGOT) 42 H 5-34 U/L Alanine Aminotransferase (ALT/SGPT) 39 0-55 U/L Alkaline Phosphatase 57 40-136 U/L Total Protein 4.8 L 6.4-8.2 GM/DL Albumin 3.0 L 3.2-4.5 GM/DL Salicylates Level < 5.0 L 5.0-20.0 MG/DL Acetaminophen Level < 10 L 10-30 UG/ML Serum Alcohol < 10 <10 MG/DL Urine Color YELLOW Urine Clarity CLEAR Urine pH 5 5-9 Urine Specific [place] 1.025 H 1.016-1.022 Urine Protein 3+ H NEGATIVE Urine Glucose (UA) NEGATIVE NEGATIVE Urine Ketones 2+ H NEGATIVE Urine Nitrite POSITIVE H NEGATIVE Urine Bilirubin 1+ H NEGATIVE Urine Urobilinogen 8 H NORMAL MG/DL Urine Leukocyte Esterase 2+ H NEGATIVE Urine RBC (Auto) NEGATIVE NEGATIVE Urine RBC NONE /HPF Urine WBC 2-5 /HPF Urine Squamous Epithelial Cells 5-10 /HPF Urine Crystals NONE /LPF Urine Bacteria NEGATIVE /HPF Urine Casts PRESENT /LPF Urine Hyaline Casts 5-10 H /LPF Urine Mucus LARGE H /LPF Urine Culture Indicated YES Urine Opiates Screen NEGATIVE NEGATIVE Urine Oxycodone Screen NEGATIVE NEGATIVE Urine Methadone Screen NEGATIVE NEGATIVE Urine Propoxyphene Screen NEGATIVE NEGATIVE Urine Barbiturates Screen NEGATIVE NEGATIVE Ur Tricyclic Antidepressants Screen NEGATIVE NEGATIVE Urine Phencyclidine Screen NEGATIVE NEGATIVE Urine Amphetamines Screen POSITIVE H NEGATIVE Urine Methamphetamines Screen POSITIVE H NEGATIVE Urine Benzodiazepines Screen NEGATIVE NEGATIVE Urine Cocaine Screen NEGATIVE NEGATIVE Urine Cannabinoids Screen NEGATIVE NEGATIVE Phosphorus Level 2.7 2.3-4.7 MG/DL Magnesium Level 1.7 L 1.8-2.4 MG/DL EK NSR, QT 462 Physical Exam-(CHC) Physical Exam Vital Signs VS - Last 72 Hours, by Label 08/27/17 08/27/17 08/27/17 08/27/17 14:34 16:32 17:00 17:00 Temp 97.3 Pulse 84 77 80 Resp 15 18 6 B/P (MAP) 108/76 (87) 120/64 115/66 (82) Pulse Ox 99 100 99 O2 Delivery Room Air Room Air Room Air Room Air 08/27/17 08/27/17 08/27/17 08/27/17 17:15 17:30 17:45 18:00 Pulse 84 77 82 86 Resp 29 21 26 23 B/P (MAP) 116/61 (79) 116/61 (79) 108/57 (74) 100/55 (70) Pulse Ox 100 99 99 97 O2 Delivery Room Air Room Air Room Air Room Air 08/27/17 08/27/17 08/27/17 08/27/17 19:00 19:00 19:32 20:00 Temp 97.7 Pulse 84 86 84 Resp 16 13 B/P (MAP) 89/43 (58) 105/57 (73) 114/66 (82) Pulse Ox 97 96 O2 Delivery Room Air Room Air 08/27/17 08/27/17 08/27/17 08/27/17 20:00 21:00 22:00 23:00 Pulse 85 80 87 Resp 19 21 23 B/P (MAP) 94/48 (63) 113/68 (83) 127/77 (94) Pulse Ox 97 96 95 91 O2 Delivery Room Air Room Air Room Air Room Air 08/28/17 08/28/17 08/28/17 08/28/17 00:00 00:00 00:05 01:00 Temp 98.0 Pulse 93 86 86 Resp 23 B/P (MAP) 130/79 (96) 130/79 (96) 128/83 (98) Pulse Ox 93 24 93 92 O2 Delivery Room Air Room Air Room Air Room Air 08/28/17 08/28/17 08/28/17 08/28/17 01:00 02:00 03:00 04:00 Pulse 85 85 85 89 B/P (MAP) 106/83 (91) 124/58 (80) 130/74 (92) Pulse Ox 94 93 91 O2 Delivery Room Air Room Air Room Air 08/28/17 08/28/17 08/28/17 08/28/17 04:00 05:00 06:00 07:00 Pulse 82 85 90 B/P (MAP) 133/73 (93) 86/51 (63) Pulse Ox 94 95 95 O2 Delivery Room Air Room Air Room Air 08/28/17 08/28/17 08/28/17 08/28/17 07:00 08:00 08:00 08:00 Temp 98.7 Pulse 90 87 Resp 23 35 B/P (MAP) 114/75 (88) 114/73 (87) Pulse Ox 93 98 O2 Delivery Room Air Room Air Room Air Room Air 08/28/17 08/28/17 09:00 10:00 Pulse 79 81 Resp 23 B/P (MAP) 122/74 (90) 128/87 (101) Pulse Ox 96 96 O2 Delivery Room Air Room Air Capillary Refill : Less Than 3 Seconds General Appearance: no apparent distress Eyes: Bilateral Eye EOMI Neck: supple Respiratory: lungs clear, normal breath sounds, no respiratory distress Cardiovascular: regular rate, rhythm, no edema Gastrointestinal: normal bowel sounds, non tender, soft Extremities: normal range of motion, no pedal edema Neurologic/Psychiatric: no motor/sensory deficits, alert, oriented x 3 Skin: normal color Assessment/Plan Assessment/Plan Admission Status: Observation Assessment & Plan Trazadone overdose - recheck EKG for prolongation of QT. Continue monitoring pt , will reassess pt to determine if pt is stable for discharge today. UTI - pt has 2+ Leukocyte esterase - will start abx Clinical Quality Measures DVT/VTE Risk/Contraindication: Risk Factor Score Per Nursin RFS Level Per Nursing on Admit: 3=High JACQUES ONEAL MD 08/28/17 11:38am: HPI History of Present Illness: Time Seen by Provider: 09:15 Home Medications Allergies Coded Allergies: No Known Drug Allergies (Unverified , 03/11/13) FUF-Udrvhh-Mahzsy Hx Past Medical History PMHx: Anxiety Depression ADD PSurgHx: C section Tubal ligation Cholecystectomy Tonsillectomy/adenoidectomy Family Medical History Family History: Diabetes mellitus 19 MOTHER FH: COPD (chronic obstructive pulmonary disease) 19 MOTHER FH: schizophrenia 19 MOTHER FH: uterine cancer Fibromyalgia 19 MOTHER Assessment/Plan Assessment/Plan Admission Status: Observation (1) Suicidal ideation Status: Acute Assessment & Plan: This am reports somewhat passive suicidal ideation, is medically stable, will have mental health screen for safety for discharge for outpatient therapy. (2) Hypotension Status: Resolved Assessment & Plan: Initially, resolved overnight Qualifiers: Qualified Codes: I95.9 - Hypotension, unspecified (3) Overdose of trazodone Status: Acute Assessment & Plan: Monitored overnight, electrolyte abnormalities replaced. Repeat EKG this morning for QT monitoring. Drowsy but otherwise oriented and labs improved, stable for mental health evaluation. Supervisory-Addendum Brief Supervisory Addendum Patient seen and evaluated by me, I repeated the findings documented by SHELLY Gomez and agree with documentation unless otherwise noted. See problem list for my assessment and plan. MADAI,KEVIN MEDICAL STUDENT Aug 28, 2017 11:02 am JACQUES ONEAL MD Aug 28, 2017 11:38 am
[2017-08-28] MEDS ORDERED: NITR-65 PO (14:01)
--- NOTE | 2017-08-28 14:09 | Discharge Instructions ---
Discharge Inst-[facility] Discharge Medications New, Converted or Re-Newed RX: Transmitted to Pharmacy New Medications: Nitrofurantoin Monohyd/M-Cryst (Macrobid 100 mg Capsule) 100 Mg Capsule 1 TAB PO BID for 3 Days, #6 CAP 0 Refills Continued Medications: Albuterol Sulfate (Proventil Hfa) 6.7 Gm Hfa.aer.ad 2 PUFF IH Q6H PRN for SHORTNESS OF BREATH, INHALER Ferrous Sulfate (Iron) 325 Mg Tablet 325 MG PO DAILY, TAB Fluticasone Propionate (Flonase Allergy Relief) 9.9 Ml [place].susp 1 SPRAY NS DAILY PRN for ALLERGIES, SPRAY Gabapentin (Gabapentin) 100 Mg Capsule 100 MG PO BID PRN for ANXIETY, CAP Hydroxyzine HCl (Hydroxyzine HCl) 50 Mg Tablet 50 MG PO HS, TAB Lisdexamfetamine Dimesylate (Vyvanse) 40 Mg Capsule 40 MG PO DAILY, CAP Vortioxetine Hydrobromide (Trintellix) 20 Mg Tablet 20 MG PO DAILY, TAB Patient Instructions Goal/Follow Up Appt: Follow up with Radha Palma APRN at [facility] on 08/29 at 4:20 pm. Patient Instructions: Follow up with primary provider at [facility] to get final results of urine culture. Return to [facility] For: Fever, inability to keep medication down, suicidal thoughts Activity & Diet Discharge Diet: Regular Diet Activity as Tolerated: Yes Copy Copies To 1: Aron Salcedo APRN; NOEL Cooper BETHANY N MD Aug 28, 2017 14:00
--- NOTE | 2017-08-28 16:46 | Discharge Summary ---
Diagnosis/Chief Complaint Date of Admission Aug 27, 2017 at 4:06 pm Date of Discharge August 28, 2017 Admission Diagnosis Admission Diagnosis (1) Suicidal ideation (2) Hypotension (3) Overdose of trazodone Discharge Diagnosis (1) Suicidal ideation Status: Acute Assessment & Plan: This am reports somewhat passive suicidal ideation, is medically stable, mental health evaluated and felt safe for discharge to home, they will follow up with phone call this evening. Patient scheduled to see Psychiatry at [facility] tomorrow. (2) Hypotension Status: Resolved Assessment & Plan: Initially, resolved overnight Qualifiers: Qualified Codes: I95.9 - Hypotension, unspecified (3) Overdose of trazodone Status: Acute Assessment & Plan: Monitored overnight, electrolyte abnormalities replaced. Repeat EKG this morning for QT monitoring. Drowsy but otherwise oriented and labs improved, stable for mental health evaluation. Chief Complaint/HPI Chief Complaint/HPI 31 year old female with Hx of ADD, anxiety, depression and anemia was admitted yesterday from the ED for OD on her trazadone per pt's . Today pt states she took 7x 150mg Trazadone because she has been depressed over the last 4 days and wanted to sleep and "didn't really care if she woke up" but denies SI at this time. Pt states she has not done anything like this in the past. Pt admits slight headache this morning but denies and SOB, CP, N/V/D, Abd pain. Discharge Summary-Simple/Stand Procedures EK NSR, QT 462 Consultations Discharge Physical Examination Allergies: Coded Allergies: No Known Drug Allergies (Unverified , 03/11/13) Vitals & I&Os Vital Sign - Last 12Hours Date Time Temp Pulse Resp B/P (MAP) Pulse Ox O2 Delivery O2 Flow Rate FiO2 08/28/17 14:00 93 30 145/93 (110) 98 Room Air 08/28/17 12:00 97.9 Intake and Output 08/28/17 00:00 Intake Total 3500 ml Output Total 650 ml Balance 2850 ml Hospital Course See final discharge diagnosis. Labs Laboratory Tests Test 08/27/17 14:58 08/27/17 15:00 08/28/17 03:20 Range/Units White Blood Count 9.1 10.9 4.3-11.0 10^3/uL Red Blood Count 3.27 L 3.99 L 4.35-5.85 10^6/uL Hemoglobin 9.6 L 11.6 # 11.5-16.0 G/DL Hematocrit 29 L 36 35-52 % Mean Corpuscular Volume 89 89 80-99 FL Mean Corpuscular Hemoglobin 29 29 25-34 PG Mean Corpuscular Hemoglobin Concent 33 33 32-36 G/DL Red Cell Distribution Width 13.7 14.3 10.0-14.5 % Platelet Count 247 309 130-400 10^3/uL Mean Platelet Volume 10.8 H 10.9 H 7.4-10.4 FL Neutrophils (%) (Auto) 70 55 42-75 % Lymphocytes (%) (Auto) 25 39 12-44 % Monocytes (%) (Auto) 5 5 0-12 % Eosinophils (%) (Auto) 1 1 0-10 % Basophils (%) (Auto) 0 0 0-10 % Neutrophils # (Auto) 6.4 6.0 1.8-7.8 X 10^3 Lymphocytes # (Auto) 2.3 4.2 H 1.0-4.0 X 10^3 Monocytes # (Auto) 0.5 0.5 0.0-1.0 X 10^3 Eosinophils # (Auto) 0.1 0.1 0.0-0.3 10^3/uL Basophils # (Auto) 0.0 0.0 0.0-0.1 10^3/uL Sodium Level 142 139 135-145 MMOL/L Potassium Level 2.8 L 4.1 3.6-5.0 MMOL/L Chloride Level 116 H 113 H 98-107 MMOL/L Carbon Dioxide Level 16 L 19 L 21-32 MMOL/L Anion Gap 10 7 5-14 MMOL/L Blood Urea Nitrogen 9 5 L 7-18 MG/DL Creatinine 0.61 0.65 0.60-1.30 MG/DL Estimat Glomerular Filtration Rate > 60 > 60 BUN/Creatinine Ratio 15 8 Glucose Level 81 86 70-105 MG/DL Calcium Level 6.5 L 7.8 L 8.5-10.1 MG/DL Total Bilirubin 0.2 0.1-1.0 MG/DL Aspartate Amino Transf (AST/SGOT) 42 H 5-34 U/L Alanine Aminotransferase (ALT/SGPT) 39 0-55 U/L Alkaline Phosphatase 57 40-136 U/L Total Protein 4.8 L 6.4-8.2 GM/DL Albumin 3.0 L 3.2-4.5 GM/DL Salicylates Level < 5.0 L 5.0-20.0 MG/DL Acetaminophen Level < 10 L 10-30 UG/ML Serum Alcohol < 10 <10 MG/DL Urine Color YELLOW Urine Clarity CLEAR Urine pH 5 5-9 Urine Specific Mio 1.025 H 1.016-1.022 Urine Protein 3+ H NEGATIVE Urine Glucose (UA) NEGATIVE NEGATIVE Urine Ketones 2+ H NEGATIVE Urine Nitrite POSITIVE H NEGATIVE Urine Bilirubin 1+ H NEGATIVE Urine Urobilinogen 8 H NORMAL MG/DL Urine Leukocyte Esterase 2+ H NEGATIVE Urine RBC (Auto) NEGATIVE NEGATIVE Urine RBC NONE /HPF Urine WBC 2-5 /HPF Urine Squamous Epithelial Cells 5-10 /HPF Urine Crystals NONE /LPF Urine Bacteria NEGATIVE /HPF Urine Casts PRESENT /LPF Urine Hyaline Casts 5-10 H /LPF Urine Mucus LARGE H /LPF Urine Culture Indicated YES Urine Opiates Screen NEGATIVE NEGATIVE Urine Oxycodone Screen NEGATIVE NEGATIVE Urine Methadone Screen NEGATIVE NEGATIVE Urine Propoxyphene Screen NEGATIVE NEGATIVE Urine Barbiturates Screen NEGATIVE NEGATIVE Ur Tricyclic Antidepressants Screen NEGATIVE NEGATIVE Urine Phencyclidine Screen NEGATIVE NEGATIVE Urine Amphetamines Screen POSITIVE H NEGATIVE Urine Methamphetamines Screen POSITIVE H NEGATIVE Urine Benzodiazepines Screen NEGATIVE NEGATIVE Urine Cocaine Screen NEGATIVE NEGATIVE Urine Cannabinoids Screen NEGATIVE NEGATIVE Phosphorus Level 2.7 2.3-4.7 MG/DL Magnesium Level 1.7 L 1.8-2.4 MG/DL Discharge Instructions to patient/family Please see electronic discharge instructions given to patient. Discharge Medications Reviewed and agree with Discharge Medication list on patient's Discharge Instruction sheet Clinical Quality Measures DVT/VTE Risk/Contraindication: Risk Factor Score Per Nursin RFS Level Per Nursing on Admit: 3=High Copy Copies To 1: NOEL Cooper BETHANY N MD Aug 28, 2017 16:46
== END 2017-08-28 14:06 | disposition home or self-care (01) ==
LOC: EDUNIT# 14:34 → ER 14:35 → ICU 16:06 → UNDOADMIN 16:06 → ICU 16:38 → UNDODISIN 08-28 15:35
PROVIDERS: ADMIT Family Medicine; ATTEND Family Medicine
DX: T43.212A Poisoning by selective serotonin and norepinephrine reuptake inhibitors, intentional self-harm, initial encounter (principal); I95.2 Hypotension due to drugs; R00.1 Bradycardia, unspecified; R40.0 Somnolence; N39.0 Urinary tract infection, site not specified; F32.9 Major depressive disorder, single episode, unspecified; F41.9 Anxiety disorder, unspecified; F90.9 Attention-deficit hyperactivity disorder, unspecified type; F17.210 Nicotine dependence, cigarettes, uncomplicated; J30.2 Other seasonal allergic rhinitis; J45.998 Other asthma; G43.909 Migraine, unspecified, not intractable, without status migrainosus; K52.9 Noninfective gastroenteritis and colitis, unspecified; K20.9 Esophagitis, unspecified; M19.91 Primary osteoarthritis, unspecified site; M54.9 Dorsalgia, unspecified; F15.90 Other stimulant use, unspecified, uncomplicated; L40.9 Psoriasis, unspecified; D64.9 Anemia, unspecified; Z87.01 Personal history of pneumonia (recurrent)
CPT/HCPCS: 36415; 51702; 71045; 80048; 80053; 80306; 80320; 80329; 81000; 83735; 84100; 85025; 87081; 87088; 93005; 93041; 96361; 96365; 96375; G0378

== ENCOUNTER 2017-11-10 22:05 | Emergency (ER) | payer MEDICAID ==
[~2017-11-10] VITALS: Ht 165.1 cm; Wt 124.7 kg
[~2017-11-10 22:05] MED LIST changes: -BENZ-13 PO; +BENZ100C18 PO; +FERR-84 PO; +HYDR-4226 PO; -HYDR-757 PO; +LISD40CA3 PO; +METF-397 PO; -METF500T5 PO; +NITR-65 PO
[2017-11-11 01:07] LABS: BILIRUBIN,URINE NEGATIVE (NEGATIVE); CLARITY,URINE SLIGHTLY CLOUDY; COLOR,URINE YELLOW; GLUCOSE, URINE (UA) NEGATIVE (NEGATIVE); KETONES,URINE NEGATIVE (NEGATIVE); LEUKOCYTE ESTERASE ,URINE NEGATIVE (NEGATIVE); NITRITE,URINE NEGATIVE (NEGATIVE); PH,URINE 6 (5-9); PROTEIN,URINE NEGATIVE (NEGATIVE); UROBILINOGEN,URINE NORMAL (NORMAL)
[2017-11-11 01:15] LABS: BACTERIA,URINE NEGATIVE /HPF; RBC,URINE RARE /HPF
[2017-11-11] MEDS ORDERED: KETOROLAC 30 MG/ML VIAL IVP STA (01:16)
[2017-11-11] MEDS ORDERED: NS IV 1000 ML 1,000 ML IV ONE (01:16)
[2017-11-11 01:27] LABS: BASOPHILS % (AUTO) 0 % (0-10); EOSINOPHILS # (AUTO) 0.1 10^3/uL (0.0-0.3); EOSINOPHILS % (AUTO) 1 % (0-10); HEMATOCRIT 39 % (35-52); HEMOGLOBIN 13.2 G/DL (11.5-16.0); LYMPHOCYTES # (AUTO) 4.4 X 10^3 (1.0-4.0); LYMPHOCYTES % (AUTO) 26 % (12-44); MEAN CORPUSCULAR HEMOGLOBIN 30 PG (25-34); MEAN CORPUSCULAR HGB CONC 34 G/DL (32-36); MEAN CORPUSCULAR VOLUME 87 FL (80-99); MEAN PLATELET VOLUME 10.6 FL (7.4-10.4); MONOCYTES # (AUTO) 0.5 X 10^3 (0.0-1.0); MONOCYTES % (AUTO) 3 % (0-12); NEUTROPHILS # (AUTO) 12.1 X 10^3 (1.8-7.8); NEUTROPHILS % (AUTO) 71 % (42-75); PLATELET COUNT 366 10^3/uL (130-400); RED BLOOD COUNT 4.46 10^6/uL (4.35-5.85); RED CELL DISTRIBUTION WIDTH 13.6 % (10.0-14.5); WHITE BLOOD COUNT 17.1 10^3/uL (4.3-11.0)
--- NOTE | 2017-11-11 01:36 | ED General ---
General Chief Complaint: General Problems/Pain Stated Complaint: SWOLLEN LYMPH NODES,DOUBLE VISION, FEVER Source of Information: Patient Exam Limitations: No Limitations History of Present Illness Date Seen by Provider: Nov 11, 2017 Time Seen by Provider: 00:50 Initial Comments Here with overall not feeling well over the last week. She feels like maybe she 's had 2 illnesses. Both are related to upper respiratory symptoms. She is concerned she has a sinus infection and does have runny nose and cough and upper chest congestion. She feels like she has lymph nodes in her throat that her swelling and her armpits. Reports fever of 102 at home tonight. She did take ibuprofen and that appears to have resolved her fever she is fever free currently. Denies nausea or vomiting. Timing/Duration: 1 Week, Changing Over Time, Getting Worse Severity: Moderate Modifying Factors: improves with Medication Associated Systoms: Cough, Fever/Chills; No Nausea/Vomiting; Shortness of Air Allergies and Home Medications Allergies Coded Allergies: No Known Drug Allergies (Unverified , 03/11/13) Home Medications Albuterol Sulfate 6.7 Gm Hfa.aer.ad, 2 PUFF IH Q6H PRN for SHORTNESS OF BREATH, (Reported) Ferrous Sulfate 325 Mg Tablet, 325 MG PO DAILY, (Reported) Fluticasone Propionate 9.9 Ml Yarnell.susp, 1 SPRAY NS DAILY PRN for ALLERGIES, ( Reported) Gabapentin 100 Mg Capsule, 100 MG PO BID PRN for ANXIETY, (Reported) Hydroxyzine HCl 50 Mg Tablet, 50 MG PO HS, (Reported) Lisdexamfetamine Dimesylate 40 Mg Capsule, 40 MG PO DAILY, (Reported) Nitrofurantoin Monohyd/M-Cryst 100 Mg Capsule, 1 TAB PO BID Prescribed by: JACQUES ONEAL on 08/28/17 1401 Vortioxetine Hydrobromide 20 Mg Tablet, 20 MG PO DAILY, (Reported) Patient Home Medication List Home Medication List Reviewed: Yes Review of Systems Review of Systems Constitutional: see HPI, chills, fever, malaise EENTM: nose congestion, throat pain Respiratory: cough, short of breath Cardiovascular: chest pain (upper chest congestion and tightness); No edema Gastrointestinal: No abdominal pain, No nausea, No vomiting Genitourinary: no symptoms reported Musculoskeletal: no symptoms reported All Other Systems Reviewed Negative Unless Noted: Yes Past Qogmylr-Isfrzo-Kysvgh Hx Past Med/Social Hx: Reviewed Nursing Past Med/Soc Hx Patient Social History Alcohol Use: Denies Use Recreational Drug Use: No Drug of Choice: methamphetamine Smoking Status: Current Everyday Smoker Type Used: Cigarettes 2nd Hand Smoke Exposure: No Recent Foreign Travel: No Contact w/Someone Who Travel: No Recent Hopitalizations: No Immunizations Up To Date Tetanus Booster (TDap): Unknown Date of Pneumonia Vaccine: Feb 21, 2012 Date of Influenza Vaccine: Nov 04, 2015 Seasonal Allergies Seasonal Allergies: Yes Past Medical History Surgeries: Yes (WISDOM TEETH REMOVED. CERVIX BIOPSY; LEFT ARM FX/ORIF) Adenoidectomy, Section, Gallbladder, Orthopedic, Tonsillectomy, Tubal Ligation Respiratory: Yes ("SITUATIONAL" ASTHMA--DOES NOT ROUTINELY USE AN INHALER) Asthma, Pneumonia Cardiac: No Neurological: Yes Headaches /Migraines Reproductive Disorders: No Female Reproductive Disorders: Denies Genitourinary: No Gastrointestinal: Yes Chronic Diarrhea, Esophagitis Musculoskeletal: Yes (LEFT ARM FX/ORIF, right ankle fx) Arthritis, Chronic Back Pain, Fractures Endocrine: No HEENT: No Cancer: No Psychosocial: Yes ADD/ADHD, Anxiety, ODD, Depression Integumentary: Yes (very sensitive skin-breaks out in rashes frequently) Psoriasis Blood Disorders: Yes (anemia, ) Adverse Reaction/Blood Tranf: No Family Medical History Reviewed Nursing Family Hx Diabetes mellitus 19 MOTHER FH: COPD (chronic obstructive pulmonary disease) 19 MOTHER FH: schizophrenia 19 MOTHER FH: uterine cancer Fibromyalgia 19 MOTHER Heart Disease, Cancer, Diabetes Physical Exam Vital Signs Capillary Refill : Height, Weight, BMI Height: 5'5.00" Weight: 291lbs. 8.9oz. 131.655449ke; 47.5 BMI Method:Estimated General Appearance: No Apparent Distress, WD/WN, Obese HEENT: PERRL/EOMI, Pharyngeal Erythema, Other (moderate bilateral nasal congestion with clear rhinorrhea moderate erythema) Neck: Non Tender, Supple, Lymphadenopathy (L) (mild), Lymphadenopathy (R) Respiratory: Lungs Clear, Normal Breath Sounds Cardiovascular: Regular Rate, Rhythm, No Murmur Gastrointestinal: Non Tender, Soft Back: Normal Inspection, No CVA Tenderness, No Vertebral Tenderness Extremity: Normal Range of Motion, Non Tender Neurologic/Psychiatric: Alert, Oriented x3 Skin: Normal Color, Warm/Dry Procedures/Interventions Dental Procedures: Dental I&D Progress/Results/Core Measures Suspected Sepsis SIRS Temperature: Pulse: Respiratory Rate: Laboratory Tests 11/11/17 01:10: White Blood Count 17.1H Blood Pressure / Mean: Laboratory Tests 11/11/17 01:10: Creatinine 0.75, Platelet Count 366, Total Bilirubin 0.2 Results/Orders Lab Results Laboratory Tests Test 11/11/17 00:50 11/11/17 01:10 Range/Units Urine Color YELLOW Urine Clarity SLIGHTLY CLOUDY Urine pH 6 5-9 Urine Specific Cameron 1.020 1.016-1.022 Urine Protein NEGATIVE NEGATIVE Urine Glucose (UA) NEGATIVE NEGATIVE Urine Ketones NEGATIVE NEGATIVE Urine Nitrite NEGATIVE NEGATIVE Urine Bilirubin NEGATIVE NEGATIVE Urine Urobilinogen NORMAL NORMAL MG/DL Urine Leukocyte Esterase NEGATIVE NEGATIVE Urine RBC (Auto) 1+ H NEGATIVE Urine RBC RARE /HPF Urine WBC NONE /HPF Urine Squamous Epithelial Cells 5-10 /HPF Urine Crystals NONE /LPF Urine Bacteria NEGATIVE /HPF Urine Casts NONE /LPF Urine Mucus MODERATE H /LPF Urine Culture Indicated NO Urine Test NEGATIVE NEGATIVE White Blood Count 17.1 H 4.3-11.0 10^3/uL Red Blood Count 4.46 4.35-5.85 10^6/uL Hemoglobin 13.2 11.5-16.0 G/DL Hematocrit 39 35-52 % Mean Corpuscular Volume 87 80-99 FL Mean Corpuscular Hemoglobin 30 25-34 PG Mean Corpuscular Hemoglobin Concent 34 32-36 G/DL Red Cell Distribution Width 13.6 10.0-14.5 % Platelet Count 366 130-400 10^3/uL Mean Platelet Volume 10.6 H 7.4-10.4 FL Neutrophils (%) (Auto) 71 42-75 % Lymphocytes (%) (Auto) 26 12-44 % Monocytes (%) (Auto) 3 0-12 % Eosinophils (%) (Auto) 1 0-10 % Basophils (%) (Auto) 0 0-10 % Neutrophils # (Auto) 12.1 H 1.8-7.8 X 10^3 Lymphocytes # (Auto) 4.4 H 1.0-4.0 X 10^3 Monocytes # (Auto) 0.5 0.0-1.0 X 10^3 Eosinophils # (Auto) 0.1 0.0-0.3 10^3/uL Basophils # (Auto) 0.0 0.0-0.1 10^3/uL Neutrophils % (Manual) 64 % Lymphocytes % (Manual) 28 % Monocytes % (Manual) 2 % Eosinophils % (Manual) 1 % Basophils % (Manual) 1 % Band Neutrophils 4 % Polychromasia Blood Morphology Comment NORMAL Sodium Level 138 135-145 MMOL/L Potassium Level 3.8 3.6-5.0 MMOL/L Chloride Level 105 98-107 MMOL/L Carbon Dioxide Level 20 L 21-32 MMOL/L Anion Gap 13 5-14 MMOL/L Blood Urea Nitrogen 9 7-18 MG/DL Creatinine 0.75 0.60-1.30 MG/DL Estimat Glomerular Filtration Rate > 60 BUN/Creatinine Ratio 12 Glucose Level 94 70-105 MG/DL Calcium Level 9.2 8.5-10.1 MG/DL Corrected Calcium 9.1 8.5-10.1 MG/DL Total Bilirubin 0.2 0.1-1.0 MG/DL Aspartate Amino Transf (AST/SGOT) 21 5-34 U/L Alanine Aminotransferase (ALT/SGPT) 35 0-55 U/L Alkaline Phosphatase 82 40-136 U/L Total Protein 7.1 6.4-8.2 GM/DL Albumin 4.1 3.2-4.5 GM/DL Micro Results Microbiology 11/11/17 Influenza Types A,B Antigen (YOVANY) - Final, Complete My Orders Orders - BLAKE BRO MD Hcg,Qualitative Urine (11/11/17 00:51) Ua Culture If Indicated (11/11/17 00:51) Cbc With Automated Diff (11/11/17 01:16) Comprehensive Metabolic Panel (11/11/17 01:16) Influenza A And B Antigens (11/11/17 01:16) Saline Lock/Iv-Start (11/11/17 01:16) Ns Iv 1000 Ml (Sodium Chloride 0.9%) (11/11/17 01:16) Ketorolac Injection (Toradol Injection) (11/11/17 01:16) Manual Differential (11/11/17 01:10) Dexamethasone Pf Injection (Decadron Pf (11/11/17 02:08) Cefdinir Capsule (Omnicef Capsule) (11/11/17 02:15) Medications Given in ED Current Medications Medications Dose Ordered Sig/Ellie Route Start Time Stop Time Status Last Admin Dose Admin Sodium Chloride 1,000 ml @ 0 mls/hr Q0M ONCE IV 11/11/17 01:16 11/11/17 01:18 DC 11/11/17 01:37 999 MLS/HR Vital Signs/I&O Capillary Refill : Point of Care Testing Urine -Bedside: Negative Progress Note : Progress Note Seen and evaluated. IV, labs, UA, normal saline 1 L bolus, Toradol 30 mg IV and influenza screen ordered. Monitor patient. 0213: May be a little better but still doesn't feel well. We will go ahead and treat for sinusitis. Decadron 10 mg IV and Omnicef 300 mg by mouth. Discharged home with return precautions. Patient verbalize understanding instructions and agreement with plan. Departure Impression Primary Impression: Sinusitis, acute Qualified Codes: J01.91 - Acute recurrent sinusitis, unspecified Additional Impression: Bronchitis Disposition: HOME, SELF-CARE Condition: Improved Departure-Patient Inst. Decision time for Depature: 02:15 Referrals: [facility] (PCP) Primary Care Physician ALEXEI DELGADILLO APRN (Family) Primary Care Physician Patient Instructions: Acute Bronchitis, Adult (DC), Sinusitis, Adult (DC) Add. Discharge Instructions: All discharge instructions reviewed with patient and/or family. Voiced understanding. Take medications as directed. You may take ibuprofen 800 mg every 8 hours as needed for pain. You may take Tylenol/acetaminophen 1000 mg every 8 hours as needed for pain. Drink plenty of fluids and get plenty of rest. Follow-up with your DrByron in a few days for recheck. Return for worse pain, fever, vomiting , weakness, breathing problems or other concerns as needed. Scripts Cefdinir (Cefdinir) 300 Mg Capsule 300 MG PO BID, #19 CAP 0 Refills Prov: BLAKE BRO MD 11/11/17 BLAKE BRO MD Nov 11, 2017 01:36
[2017-11-11 01:46] LABS: ALANINE AMINOTRANSFERASE 35 U/L (0-55); ALBUMIN 4.1 GM/DL (3.2-4.5); ALKALINE PHOSPHATASE 82 U/L (40-136); BILIRUBIN,TOTAL 0.2 MG/DL (0.1-1.0); BUN/CREATININE RATIO 12; CALCIUM 9.2 MG/DL (8.5-10.1); CARBON DIOXIDE 20 MMOL/L (21-32); CHLORIDE 105 MMOL/L (98-107); CREATININE SERUM 0.75 MG/DL (0.60-1.30); GFR ESTIMATED > 60; GLUCOSE 94 MG/DL (70-105); POTASSIUM 3.8 MMOL/L (3.6-5.0); SODIUM 138 MMOL/L (135-145); TOTAL PROTEIN 7.1 GM/DL (6.4-8.2)
[2017-11-11 01:52] LABS: BAND NEUTROPHILS 4 %; BASOPHILS % (MANUAL) 1 %; EOSINOPHILS % (MANUAL) 1 %; LYMPHOCYTES % (MANUAL) 28 %; MONOCYTES % (MANUAL) 2 %; NEUTROPHILS % (MANUAL) 64 %; RBC MORPH NORMAL
[2017-11-11] MEDS ORDERED: DEXAMETHASONE PF 10 MG/ML (DECADRON) VIAL IV STA (02:08)
[2017-11-11] MEDS ORDERED: CEFDINIR 300 MG (OMNICEF) CAP PO ONE (02:15)
[2017-11-11] MEDS ORDERED: CEFD300C3 PO (02:16)
[2017-11-11 02:48] VITALS: BP 138/72
== END 2017-11-11 02:49 | disposition home or self-care (01) ==
LOC: EDUNIT# 22:05 → ER 22:06
DX: J01.90 Acute sinusitis, unspecified (principal); J40 Bronchitis, not specified as acute or chronic; J45.909 Unspecified asthma, uncomplicated; G43.909 Migraine, unspecified, not intractable, without status migrainosus; F15.10 Other stimulant abuse, uncomplicated; F90.9 Attention-deficit hyperactivity disorder, unspecified type; F41.9 Anxiety disorder, unspecified; F32.9 Major depressive disorder, single episode, unspecified; F91.3 Oppositional defiant disorder; D64.9 Anemia, unspecified; F17.210 Nicotine dependence, cigarettes, uncomplicated; Z79.51 Long term (current) use of inhaled steroids; Z87.19 Personal history of other diseases of the digestive system; Z80.49 Family history of malignant neoplasm of other genital organs; Z87.01 Personal history of pneumonia (recurrent); Z98.890 Other specified postprocedural states; Z90.89 Acquired absence of other organs; Z98.51 Tubal ligation status
CPT/HCPCS: 36415; 80053; 81000; 84703; 85007; 85027; 87804; 96361; 96374; 96375

== ENCOUNTER 2018-03-15 21:58 | Emergency (ER) | payer MEDICAID | END 2018-03-15 22:50 | disposition home or self-care (01) | LOC: ER 21:58 ==

== ENCOUNTER 2018-09-08 09:13 | Emergency (ER) | payer MEDICAID ==
[~2018-09-08] VITALS: Ht 165.1 cm; Wt 129.3 kg
[~2018-09-08 09:13] MED LIST changes: +CEFD300C3 PO; +CLIN300C11 PO
[2018-09-08] MEDS ORDERED: LACTATED RINGERS 1,000 ML IV SCH (10:45)
[2018-09-08] MEDS ORDERED: KETOROLAC 30 MG/ML VIAL IVP ONE (10:45)
--- NOTE | 2018-09-08 10:51 | ED Lower Extremity ---
General Chief Complaint: Lower Extremity Stated Complaint: SORE ON LEFT LEG Nursing Triage Note: PT AMB TO RM 9 WITH COMPLAINT OF SORE ON LEFT LEG. STATES SHE WAS BIT BY MULTIPLE MOSQUITOES ON ARMS AND LEGS. STATES THE BITE ON LEFT LEG WAS 3 BITES TO BEGIN, BUT HAVE CHANGED INTO ONE LARGE SORE. STATES SHE FEELS MALAISE, BRAIN FOG, AND ABD PAIN. Nursing Sepsis Screen: No Definite Risk Source: patient Exam Limitations: no limitations History of Present Illness Date Seen by Provider: Sep 08, 2018 Time Seen by Provider: 10:46 Initial Comments To ER by private vehicle with several complaints. She states that she's got some sores that are not healing. These she states R mosquito bites that she sustained on August 23, they have become large, red and scabbed which is unusual. She has mental fogginess. She has a multitude of these bites to the arms and legs. Nothing to the torso. She reports chills general malaise, diffuse joint pains. She also has some epigastric and left-sided abdominal pain and fullness. She denies constipation or diarrhea. She reports a family history of rheumatoid arthritis. Onset: just prior to arrival Severity: moderate Pain/Injury Location: bilateral leg, bilateral knee Method of Injury: unknown Modifying Factors: Worse With Movement Allergies and Home Medications Allergies Coded Allergies: No Known Drug Allergies (Unverified , 03/11/13) Home Medications Albuterol Sulfate 6.7 Gm Hfa.aer.ad, 2 PUFF IH Q6H PRN for SHORTNESS OF BREATH, (Reported) Cefdinir 300 Mg Capsule, 300 MG PO BID Prescribed by: BLAKE BRO on 11/11/17 0216 Clindamycin HCl 300 Mg Capsule, 300 MG PO TID Prescribed by: LIZBETH SALAZAR on 03/15/18 2223 Ferrous Sulfate 325 Mg Tablet, 325 MG PO DAILY, (Reported) Fluticasone Propionate 9.9 Ml [place].susp, 1 SPRAY NS DAILY PRN for ALLERGIES, (Reported) Gabapentin 100 Mg Capsule, 100 MG PO BID PRN for ANXIETY, (Reported) Hydroxyzine HCl 50 Mg Tablet, 50 MG PO HS, (Reported) Lisdexamfetamine Dimesylate 40 Mg Capsule, 40 MG PO DAILY, (Reported) Nitrofurantoin Monohyd/M-Cryst 100 Mg Capsule, 1 TAB PO BID Prescribed by: JACQUES ONEAL on 08/28/17 1401 Vortioxetine Hydrobromide 20 Mg Tablet, 20 MG PO DAILY, (Reported) Patient Home Medication List Home Medication List Reviewed: Yes Review of Systems Constitutional: see HPI, chills, malaise, weakness EENTM: see HPI Respiratory: no symptoms reported Cardiovascular: no symptoms reported Genitourinary: no symptoms reported Musculoskeletal: see HPI, joint pain; No joint swelling Skin: no symptoms reported Psychiatric/Neurological: Denies Headache Past Bqqqscf-Hgqyik-Hbwlqr Hx Patient Social History Alcohol Use: Denies Use Recreational Drug Use: No Drug of Choice: methamphetamine Smoking Status: Current Everyday Smoker Type Used: Cigarettes 2nd Hand Smoke Exposure: No Recent Foreign Travel: No Contact w/Someone Who Travel: No Recent Infectious Disease Expo: No Recent Hopitalizations: No Physical Abuse: No Sexual Abuse: No Mistreated: No Fear: No Immunizations Up To Date Tetanus Booster (TDap): Unknown Date of Pneumonia Vaccine: Feb 21, 2012 Date of Influenza Vaccine: Nov 04, 2015 Seasonal Allergies Seasonal Allergies: Yes Past Medical History Surgeries: Yes (WISDOM TEETH REMOVED, CERVIX BIOPSY; LEFT ARM FX/ORIF) Adenoidectomy, Section, Gallbladder, Orthopedic, Tonsillectomy, Tubal L igation Respiratory: Yes ("SITUATIONAL" ASTHMA--DOES NOT ROUTINELY USE AN INHALER) Asthma, Pneumonia Cardiac: No Neurological: Yes Headaches /Migraines Reproductive Disorders: No Female Reproductive Disorders: Denies Genitourinary: No Gastrointestinal: Yes Chronic Diarrhea, Esophagitis Musculoskeletal: Yes (LEFT ARM FX/ORIF, right ankle fx) Arthritis, Chronic Back Pain, Fractures Endocrine: No HEENT: No Cancer: No Psychosocial: Yes ADD/ADHD, Anxiety, ODD, Depression Integumentary: Yes (very sensitive skin-breaks out in rashes frequently) Psoriasis Blood Disorders: Yes (anemia) Adverse Reaction/Blood Tranf: No Family Medical History Diabetes mellitus 19 MOTHER FH: COPD (chronic obstructive pulmonary disease) 19 MOTHER FH: schizophrenia 19 MOTHER FH: uterine cancer Fibromyalgia 19 MOTHER Heart Disease, Cancer, Diabetes Physical Exam Vital Signs Vital Signs - First Documented 09/08/18 09:26 Temp 99.1 Pulse 102 Resp 20 B/P (MAP) 131/79 (96) Pulse Ox 99 O2 Delivery Room Air Capillary Refill : Less Than 3 Seconds Height, Weight, BMI Height: 5'5.00" Weight: 285lbs. 8.9oz. 129.372117lv; 47.5 BMI Method:Stated General Appearance: WD/WN, no apparent distress, obese HEENT: PERRL/EOMI, normal ENT inspection, TMs normal Neck: non-tender, full range of motion; No lymphadenopathy (R), No lymphadenopathy (L) Cardiovascular: no murmur, tachycardia (upper limits of normal around 100) Respiratory: normal breath sounds, no respiratory distress, no accessory muscle use Gastrointestinal: normal bowel sounds, non tender, soft Hips: bilateral hip non-tender, bilateral hip normal inspection, bilateral hip normal range of motion Legs: bilateral leg non-tender, bilateral leg normal inspection, bilateral leg normal range of motion, bilateral leg other (she does have some wounds to both lower extremities that are about 1-2 cm in diameter, a little bit of erythema about 1 cm extending from the edges of these, these have an eschar and there is no drainage from any of these wounds.) Knees: bilateral knee non-tender, bilateral knee normal inspection, bilateral knee normal range of motion Ankles: bilateral ankle non-tender, bilateral ankle normal inspection, bilateral ankle normal range of motion Feet: bilateral foot non-tender, bilateral foot normal inspection, bilateral foot normal range of motion Neurologic/Psychiatric: alert, normal mood/affect, oriented x 3 Skin: normal color, warm/dry, other (wounds as above) Procedures/Interventions Dental Procedures: Dental I&D Progress/Results/Core Measures Results/Orders Lab Results Laboratory Tests Test 09/08/18 10:43 09/08/18 10:56 Range/Units White Blood Count 11.5 H 4.3-11.0 10^3/uL Red Blood Count 4.39 4.35-5.85 10^6/uL Hemoglobin 11.8 11.5-16.0 G/DL Hematocrit 37 35-52 % Mean Corpuscular Volume 84 80-99 FL Mean Corpuscular Hemoglobin 27 25-34 PG Mean Corpuscular Hemoglobin Concent 32 32-36 G/DL Red Cell Distribution Width 15.1 H 10.0-14.5 % Platelet Count 416 H 130-400 10^3/uL Mean Platelet Volume 10.2 7.4-10.4 FL Neutrophils (%) (Auto) 60 42-75 % Lymphocytes (%) (Auto) 33 12-44 % Monocytes (%) (Auto) 6 0-12 % Eosinophils (%) (Auto) 1 0-10 % Basophils (%) (Auto) 0 0-10 % Neutrophils # (Auto) 6.9 1.8-7.8 X 10^3 Lymphocytes # (Auto) 3.8 1.0-4.0 X 10^3 Monocytes # (Auto) 0.7 0.0-1.0 X 10^3 Eosinophils # (Auto) 0.1 0.0-0.3 10^3/uL Basophils # (Auto) 0.0 0.0-0.1 10^3/uL Sodium Level 138 135-145 MMOL/L Potassium Level 4.0 3.6-5.0 MMOL/L Chloride Level 105 98-107 MMOL/L Carbon Dioxide Level 20 L 21-32 MMOL/L Anion Gap 13 5-14 MMOL/L Blood Urea Nitrogen 8 7-18 MG/DL Creatinine 0.76 0.60-1.30 MG/DL Estimat Glomerular Filtration Rate > 60 BUN/Creatinine Ratio 11 Glucose Level 96 70-105 MG/DL Lactic Acid Level 1.60 0.50-2.00 MMOL/L Calcium Level 9.4 8.5-10.1 MG/DL Corrected Calcium 9.3 8.5-10.1 MG/DL Total Bilirubin 0.4 0.1-1.0 MG/DL Aspartate Amino Transf (AST/SGOT) 40 H 5-34 U/L Alanine Aminotransferase (ALT/SGPT) 39 0-55 U/L Alkaline Phosphatase 68 40-136 U/L Total Protein 7.0 6.4-8.2 GM/DL Albumin 4.1 3.2-4.5 GM/DL Serum Test, Qualitative NEGATIVE NEGATIVE Rheumatoid Factor NEGATIVE NEGATIVE Urine Color YELLOW Urine Clarity CLEAR Urine pH 6 5-9 Urine Specific [place] 1.015 L 1.016-1.022 Urine Protein NEGATIVE NEGATIVE Urine Glucose (UA) NEGATIVE NEGATIVE Urine Ketones NEGATIVE NEGATIVE Urine Nitrite NEGATIVE NEGATIVE Urine Bilirubin NEGATIVE NEGATIVE Urine Urobilinogen NORMAL NORMAL MG/DL Urine Leukocyte Esterase NEGATIVE NEGATIVE Urine RBC (Auto) 1+ H NEGATIVE Urine RBC RARE /HPF Urine WBC NONE /HPF Urine Squamous Epithelial Cells 2-5 /HPF Urine Crystals NONE /LPF Urine Bacteria TRACE /HPF Urine Casts NONE /LPF Urine Mucus NEGATIVE /LPF Urine Culture Indicated NO My Orders Orders - LIZBETH SALAZAR CLASSIFIER Cbc With Automated Diff (09/08/18 10:30) Hcg,Qualitative Serum (09/08/18 10:30) Comprehensive Metabolic Panel (09/08/18 10:30) West Nile Virus Igg & M (09/08/18 10:30) Lactic Acid Analyzer (09/08/18 10:38) Ketorolac Injection (Toradol Injection) (09/08/18 10:45) Lactated Ringers (Lr 1000 Ml Iv Solution (09/08/18 10:45) Anti-Nuclear Ab (Maureen) Analyzer (09/08/18 10:38) Rheumatoid Factor (09/08/18 10:38) Ua Culture If Indicated (09/08/18 10:46) Ct Abdomen/Pelvis W (09/08/18 11:20) Iohexol Injection (Omnipaque 350 Mg/Ml 1 (09/08/18 11:30) Received Contrast (Hold Metformin- Contr (09/08/18 11:30) Sodium Chloride Flush (Catheter Flush Sy (09/08/18 11:30) Ns (Ivpb) (Sodium Chloride 0.9% Ivpb Bag (09/08/18 11:30) Medications Given in ED Current Medications Medications Dose Ordered Sig/Ellie Route Start Time Stop Time Status Last Admin Dose Admin Iohexol 100 ml ONCE ONCE IV 09/08/18 11:30 09/08/18 11:31 DC 09/08/18 11:48 100 ML Ketorolac Tromethamine 15 mg ONCE ONCE IVP 09/08/18 10:45 09/08/18 10:46 DC 09/08/18 11:00 15 MG Sodium Chloride 10 ml NEEDED PRN IV 09/08/18 11:30 09/08/18 11:49 10 ML Sodium Chloride 100 ml ONCE ONCE IV 09/08/18 11:30 09/08/18 11:31 DC 09/08/18 11:48 80 ML Vital Signs/I&O 09/08/18 09:26 Temp 99.1 Pulse 102 Resp 20 B/P (MAP) 131/79 (96) Pulse Ox 99 O2 Delivery Room Air Blood Pressure Mean: 96 Departure Impression Primary Impression: Soft tissue infection Additional Impression: general malaise Disposition: 01 HOME, SELF-CARE Condition: Stable Departure-Patient Inst. Decision time for Depature: 12:10 Referrals: [facility] (PCP/Family) Primary Care Physician Patient Instructions: Wound Infection Add. Discharge Instructions: 1. Tylenol and ibuprofen for any joint pain or body aches. Apply any topical antibiotic ointment to the wounds and take the oral antibiotic as directed. Return to ER for any concerns. Follow-up with your doctor next week for recheck. All discharge instructions reviewed with patient and/or family. Voiced unders tanding. Scripts Mupirocin (Mupirocin) 22 Gm Oint...g. 1 GM TP BID, #1 TUBE Prov: LIZBETH SALAZAR APRN 09/08/18 Cephalexin (Cephalexin) 500 Mg Tablet 500 MG PO TID, #20 TAB 0 Refills Prov: LIZBETH SALAZAR APRN 09/08/18 Work/School Note: Work Release Form Date Seen in the Emergency Department: Sep 08, 2018 Return to Work: Sep 10, 2018 LIZBETH SALAZAR APRN Sep 08, 2018 10:51
[2018-09-08 10:55] LABS: BASOPHILS % (AUTO) 0 % (0-10); EOSINOPHILS # (AUTO) 0.1 10^3/uL (0.0-0.3); EOSINOPHILS % (AUTO) 1 % (0-10); HEMATOCRIT 37 % (35-52); HEMOGLOBIN 11.8 G/DL (11.5-16.0); LYMPHOCYTES # (AUTO) 3.8 X 10^3 (1.0-4.0); LYMPHOCYTES % (AUTO) 33 % (12-44); MEAN CORPUSCULAR HEMOGLOBIN 27 PG (25-34); MEAN CORPUSCULAR HGB CONC 32 G/DL (32-36); MEAN CORPUSCULAR VOLUME 84 FL (80-99); MEAN PLATELET VOLUME 10.2 FL (7.4-10.4); MONOCYTES # (AUTO) 0.7 X 10^3 (0.0-1.0); MONOCYTES % (AUTO) 6 % (0-12); NEUTROPHILS # (AUTO) 6.9 X 10^3 (1.8-7.8); NEUTROPHILS % (AUTO) 60 % (42-75); PLATELET COUNT 416 10^3/uL (130-400); RED CELL DISTRIBUTION WIDTH 15.1 % (10.0-14.5); WHITE BLOOD COUNT 11.5 10^3/uL (4.3-11.0)
[2018-09-08 11:01] LABS: BILIRUBIN,URINE NEGATIVE (NEGATIVE); CLARITY,URINE CLEAR; COLOR,URINE YELLOW; GLUCOSE, URINE (UA) NEGATIVE (NEGATIVE); KETONES,URINE NEGATIVE (NEGATIVE); LEUKOCYTE ESTERASE ,URINE NEGATIVE (NEGATIVE); NITRITE,URINE NEGATIVE (NEGATIVE); PH,URINE 6 (5-9); PROTEIN,URINE NEGATIVE (NEGATIVE); UROBILINOGEN,URINE NORMAL (NORMAL)
[2018-09-08 11:17] LABS: BACTERIA,URINE TRACE /HPF; RBC,URINE RARE /HPF
[2018-09-08 11:22] LABS: ALANINE AMINOTRANSFERASE 39 U/L (0-55); ALBUMIN 4.1 GM/DL (3.2-4.5); ALKALINE PHOSPHATASE 68 U/L (40-136); BILIRUBIN,TOTAL 0.4 MG/DL (0.1-1.0); BUN/CREATININE RATIO 11; CALCIUM 9.4 MG/DL (8.5-10.1); CARBON DIOXIDE 20 MMOL/L (21-32); CHLORIDE 105 MMOL/L (98-107); CREATININE SERUM 0.76 MG/DL (0.60-1.30); GFR ESTIMATED > 60; GLUCOSE 96 MG/DL (70-105); SODIUM 138 MMOL/L (135-145)
[2018-09-08] MEDS ORDERED: HOLD METFORMIN - RECEIVED CONTRAST 20 ML VIAL IV SCH (11:30)
[2018-09-08] MEDS ORDERED: NS 100 ML (IVPB) BAG IV ONE (11:30)
[2018-09-08] MEDS ORDERED: IOHEXOL 350 MG/ML 100 ML (OMNIPAQUE 350) VIAL IV ONE (11:30)
[2018-09-08] MEDS: CATHETER FLUSH 10 ML SYR IV PRN ×2 (11:48→11:49)
--- NOTE | 2018-09-08 12:07 | Diagnostic Imaging Report ---
PROCEDURE: CT abdomen and pelvis with contrast. TECHNIQUE: Multiple contiguous axial images were obtained through the abdomen and pelvis after administration of intravenous contrast. Auto Exposure Controls were utilized during the CT exam to meet ALARA standards for radiation dose reduction. INDICATION: Left-sided abdominal pain and fullness COMPARISON: 03/27/14 Findings: Lung bases are clear. The gallbladder is surgically absent. There is mild fatty infiltration of the liver. Otherwise, solid organs, vascular structures and bowel are unremarkable. There was no free air or free fluid. No inflammation seen. The appendix is normal. No lymphadenopathy is identified. The uterus is intact. Distal ureters and urinary bladder are normal. No osseous abnormality is seen. IMPRESSION: Surgically absent gallbladder with fatty liver, otherwise negative CT abdomen and pelvis. Dictated by: Dictated on workstation # [id number]
[2018-09-08] MEDS ORDERED: MUPI22OI2 TP (12:11)
[2018-09-08] MEDS ORDERED: CEPH500T PO (12:11)
[2018-09-08 12:26] VITALS: BP 122/82
== END 2018-09-08 12:26 | disposition home or self-care (01) ==
LOC: EDUNIT# 09:13 → ER 09:15
DX: S80.861D Insect bite (nonvenomous), right lower leg, subsequent encounter (principal); S80.862D Insect bite (nonvenomous), left lower leg, subsequent encounter; S40.861D Insect bite (nonvenomous) of right upper arm, subsequent encounter; S40.862D Insect bite (nonvenomous) of left upper arm, subsequent encounter; L08.9 Local infection of the skin and subcutaneous tissue, unspecified; R53.81 Other malaise; J45.909 Unspecified asthma, uncomplicated; G43.909 Migraine, unspecified, not intractable, without status migrainosus; F32.9 Major depressive disorder, single episode, unspecified; F41.9 Anxiety disorder, unspecified; F90.9 Attention-deficit hyperactivity disorder, unspecified type; F91.3 Oppositional defiant disorder; F17.210 Nicotine dependence, cigarettes, uncomplicated; Z87.01 Personal history of pneumonia (recurrent); Z79.51 Long term (current) use of inhaled steroids; Z90.89 Acquired absence of other organs; Z98.51 Tubal ligation status; Z80.8 Family history of malignant neoplasm of other organs or systems; W57.XXXD Bitten or stung by nonvenomous insect and other nonvenomous arthropods, subsequent encounter
CPT/HCPCS: 36415; 74177; 80053; 81000; 83605; 84703; 85025; 86038; 86430; 86788; 86789; 96361; 96374

== ENCOUNTER 2018-11-10 19:03 | Emergency (ER) | payer MEDICAID | END 2018-11-10 20:02 | disposition home or self-care (01) | LOC: ER 19:03 ==

== ENCOUNTER 2020-07-05 02:02 | Emergency (ER) | payer MEDICAID ==
[~2020-07-05 02:02] MED LIST changes: +CEPH500T PO; -CIPR500T4 PO; +CIPR500T5 PO; -CLIN150C17 PO; +CLIN150C18 PO; -CLIN300C11 PO; +CLIN300C12 PO; +MUPI22OI2 TP; -OXYC-465 PO; +OXYC-556 PO; -TRAM50TA2 PO; +TRM50T PO
[2020-07-05] MEDS ORDERED: ASPIRIN 81 MG CHEW (CHILDREN'S ASA) PO ONE (02:15)
[2020-07-05 02:25] LABS: BASOPHILS # (AUTO) 0.1 10^3/uL (0.0-0.1); BASOPHILS % (AUTO) 0 % (0-10); EOSINOPHILS # (AUTO) 0.2 10^3/uL (0.0-0.3); EOSINOPHILS % (AUTO) 1 % (0-10); HEMATOCRIT 37 % (35-52); HEMOGLOBIN 12.1 g/dL (11.5-16.0); LYMPHOCYTES # (AUTO) 5.7 10^3/uL (1.0-4.0); LYMPHOCYTES % (AUTO) 35 % (12-44); MEAN CORPUSCULAR HEMOGLOBIN 29 pg (25-34); MEAN CORPUSCULAR HGB CONC 33 g/dL (32-36); MEAN CORPUSCULAR VOLUME 87 fL (80-99); MEAN PLATELET VOLUME 10.4 fL (9.0-12.2); MONOCYTES # (AUTO) 0.7 10^3/uL (0.0-1.0); MONOCYTES % (AUTO) 4 % (0-12); NEUTROPHILS # (AUTO) 9.8 10^3/uL (1.8-7.8); NEUTROPHILS % (AUTO) 59 % (42-75); PLATELET COUNT 313 10^3/uL (130-400); WHITE BLOOD COUNT 16.4 10^3/uL (4.3-11.0)
[2020-07-05 02:38] LABS: CHLORIDE 106 MMOL/L (98-107); POTASSIUM 2.9 MMOL/L (3.6-5.0); SODIUM 140 MMOL/L (135-145)
[2020-07-05 02:39] LABS: AMYLASE 54 U/L (25-125); CALCIUM 9.1 MG/DL (8.5-10.1)
[2020-07-05 02:40] LABS: GLUCOSE 95 MG/DL (70-105); TOTAL PROTEIN 6.6 GM/DL (6.4-8.2)
[2020-07-05 02:41] LABS: CARBON DIOXIDE 21 MMOL/L (21-32)
[2020-07-05 02:42] LABS: BILIRUBIN,TOTAL 0.3 MG/DL (0.1-1.0)
[2020-07-05 02:44] LABS: ALKALINE PHOSPHATASE 63 U/L (40-136); CREATININE SERUM 0.74 MG/DL (0.60-1.30); GFR ESTIMATED > 60
[2020-07-05 02:45] LABS: BUN/CREATININE RATIO 9
[2020-07-05 02:46] LABS: BAND NEUTROPHILS 1 %; EOSINOPHILS % (MANUAL) 3 %; LYMPHOCYTES % (MANUAL) 25 %; MONOCYTES % (MANUAL) 7 %; NEUTROPHILS % (MANUAL) 64 %; RBC MORPH NORMAL
[2020-07-05 02:47] LABS: ALANINE AMINOTRANSFERASE 20 U/L (0-55); MAGNESIUM 1.7 MG/DL (1.6-2.4)
[2020-07-05 02:48] LABS: CREATINE KINASE 671 U/L (29-168); LIPASE 43 U/L (8-78)
[2020-07-05 02:55] LABS: CREATINE KINASE MB 1.4 NG/ML (<6.6)
[2020-07-05] MEDS ORDERED: HYDR50CA3 PO (03:13)
--- NOTE | 2020-07-05 03:13 | ED Chest Pain ---
General Chief Complaint: Chest Pain Stated Complaint: CP Nursing Triage Note: TO ED VIA [facility] FROM HOME TO ROOM 7 WITH C/O CENTER CP WITH RADIATION TO LEFT ARM APPROX 1H PILE HEADER. STATES SHE TOOK (2) 324MG ASA TABS PO PILE HEADER. Nursing Sepsis Screen: No Definite Risk Allergies and Home Medications Allergies Coded Allergies: No Known Drug Allergies (Unverified , 03/11/13) Home Medications Albuterol Sulfate 6.7 Gm Hfa.aer.ad, 2 PUFF IH Q6H PRN for SHORTNESS OF BREATH, (Reported) Amoxicillin 500 Mg Capsule, 500 MG PO TID . Prescribed by: LIZBETH SALAZAR on 11/10/181955 Cefdinir 300 Mg Capsule, 300 MG PO BID Prescribed by: BLAKE BRO on 11/11/17215 Cephalexin 500 Mg Tablet, 500 MG PO TID Prescribed by: LIZBETH SALAZAR on 09/08/181210 Clindamycin HCl 300 Mg Capsule, 300 MG PO TID Prescribed by: LIZBETH SALAZAR on 03/15/182222 Ferrous Sulfate 325 Mg Tablet, 325 MG PO DAILY, (Reported) Fluticasone Propionate 9.9 Ml [place].susp, 1 SPRAY NS DAILY PRN for ALLERGIES, (Reported) Gabapentin 100 Mg Capsule, 100 MG PO BID PRN for ANXIETY, (Reported) Hydrocodone/Acetaminophen 1 Each Tablet, 1 TAB PO Q6H do not fill unless amoxil is also filled. Prescribed by: LIZBETH SALAZAR on 11/10/181947 Hydroxyzine HCl 50 Mg Tablet, 50 MG PO HS, (Reported) Hydroxyzine Pamoate 50 Mg Capsule, 50 MG PO Q6H PRN for ANXIETY Prescribed by: SILVIA PARSON on 07/05/20 0313 Lisdexamfetamine Dimesylate 40 Mg Capsule, 40 MG PO DAILY, (Reported) Mupirocin 22 Gm Oint...g., 1 GM TP BID Prescribed by: LIZBETH SALAZAR on 09/08/18 121 Nitrofurantoin Monohyd/M-Cryst 100 Mg Capsule, 1 TAB PO BID Prescribed by: JACQUES ONEAL on 08/28/17 1401 Vortioxetine Hydrobromide 20 Mg Tablet, 20 MG PO DAILY, (Reported) Past Iidcrrs-Muhqmy-Nccjpr Hx Patient Social History Alcohol Use: Occasionally Uses Drug of Choice: HX methamphetamine Smoking Status: Current Everyday Smoker Type Used: Cigarettes 2nd Hand Smoke Exposure: No Recent Infectious Disease Expo: No Recent Hopitalizations: No Immunizations Up To Date Tetanus Booster (TDap): Unknown Date of Pneumonia Vaccine: Feb 21, 2012 Date of Influenza Vaccine: Nov 04, 2015 Seasonal Allergies Seasonal Allergies: Yes Past Medical History Surgeries: Yes (WISDOM TEETH REMOVED, CERVIX BIOPSY; LEFT ARM FX/ORIF) Adenoidectomy, Section, Gallbladder, Orthopedic, Tonsillectomy, Tubal Ligation Respiratory: Yes ("SITUATIONAL" ASTHMA--DOES NOT ROUTINELY USE AN INHALER) Asthma, Pneumonia Cardiac: No Neurological: Yes Headaches /Migraines Reproductive Disorders: No Female Reproductive Disorders: Denies Genitourinary: No Gastrointestinal: Yes Chronic Diarrhea, Esophagitis Musculoskeletal: Yes (LEFT ARM FX/ORIF, right ankle fx) Arthritis, Chronic Back Pain, Fractures Endocrine: No HEENT: No Cancer: No Psychosocial: Yes ADD/ADHD, Anxiety, ODD, Depression Integumentary: Yes (very sensitive skin-breaks out in rashes frequently) Psoriasis Blood Disorders: Yes (anemia) Adverse Reaction/Blood Tranf: No Family Medical History Diabetes mellitus 19 MOTHER FH: COPD (chronic obstructive pulmonary disease) 19 MOTHER FH: schizophrenia 19 MOTHER FH: uterine cancer Fibromyalgia 19 MOTHER Heart Disease, Cancer, Diabetes Physical Exam Vital Signs Vital Signs - First Documented 07/05/20 02:04 Temp 36.6 Pulse 80 Resp 22 B/P (MAP) 147/89 (108) O2 Delivery Room Air Capillary Refill : Less Than 3 Seconds Height, Weight, BMI Height: 5'5.00" Weight: 285lbs. 8.9oz. 129.988092pk; 47.00 BMI Method:Stated Procedures/Interventions Dental Procedures: Dental I&D Progress/Results/Core Measures Results/Orders Lab Results Laboratory Tests Test 07/05/20 02:18 07/05/20 02:54 Range/Units White Blood Count 16.4 H 4.3-11.0 10^3/uL Red Blood Count 4.22 3.80-5.11 10^6/uL Hemoglobin 12.1 11.5-16.0 g/dL Hematocrit 37 35-52 % Mean Corpuscular Volume 87 80-99 fL Mean Corpuscular Hemoglobin 29 25-34 pg Mean Corpuscular Hemoglobin Concent 33 32-36 g/dL Red Cell Distribution Width 13.8 10.0-14.5 % Platelet Count 313 130-400 10^3/uL Mean Platelet Volume 10.4 9.0-12.2 fL Immature Granulocyte % (Auto) 0 % Neutrophils (%) (Auto) 59 42-75 % Lymphocytes (%) (Auto) 35 12-44 % Monocytes (%) (Auto) 4 0-12 % Eosinophils (%) (Auto) 1 0-10 % Basophils (%) (Auto) 0 0-10 % Neutrophils # (Auto) 9.8 H 1.8-7.8 10^3/uL Lymphocytes # (Auto) 5.7 H 1.0-4.0 10^3/uL Monocytes # (Auto) 0.7 0.0-1.0 10^3/uL Eosinophils # (Auto) 0.2 0.0-0.3 10^3/uL Basophils # (Auto) 0.1 0.0-0.1 10^3/uL Immature Granulocyte # (Auto) 0.1 0.0-0.1 10^3/uL Neutrophils % (Manual) 64 % Lymphocytes % (Manual) 25 % Monocytes % (Manual) 7 % Eosinophils % (Manual) 3 % Band Neutrophils 1 % Blood Morphology Comment NORMAL Sodium Level 140 135-145 MMOL/L Potassium Level 2.9 L 3.6-5.0 MMOL/L Chloride Level 106 98-107 MMOL/L Carbon Dioxide Level 21 21-32 MMOL/L Anion Gap 13 5-14 MMOL/L Blood Urea Nitrogen 7 7-18 MG/DL Creatinine 0.74 0.60-1.30 MG/DL Estimat Glomerular Filtration Rate > 60 BUN/Creatinine Ratio 9 Glucose Level 95 70-105 MG/DL Calcium Level 9.1 8.5-10.1 MG/DL Corrected Calcium 9.1 8.5-10.1 MG/DL Magnesium Level 1.7 1.6-2.4 MG/DL Total Bilirubin 0.3 0.1-1.0 MG/DL Aspartate Amino Transf (AST/SGOT) 39 H 5-34 U/L Alanine Aminotransferase (ALT/SGPT) 20 0-55 U/L Alkaline Phosphatase 63 40-136 U/L Total Creatine Kinase 671 H 29-168 U/L Creatine Kinase MB 1.4 <6.6 NG/ML Myoglobin 66.9 10.0-92.0 NG/ML Troponin I < 0.028 <0.028 NG/ML B-Type Natriuretic Peptide 17.8 <100.0 PG/ML Total Protein 6.6 6.4-8.2 GM/DL Albumin 4.0 3.2-4.5 GM/DL Amylase Level 54 25-125 U/L Lipase 43 8-78 U/L Serum Test, Qualitative NEGATIVE NEGATIVE Serum Alcohol < 10 <10 MG/DL Urine Color YELLOW Urine Clarity CLEAR Urine pH 6.0 5-9 Urine Specific [place] 1.015 L 1.016-1.022 Urine Protein NEGATIVE NEGATIVE Urine Glucose (UA) NEGATIVE NEGATIVE Urine Ketones TRACE H NEGATIVE Urine Nitrite NEGATIVE NEGATIVE Urine Bilirubin NEGATIVE NEGATIVE Urine Urobilinogen 0.2 < = 1.0 MG/DL Urine Leukocyte Esterase NEGATIVE NEGATIVE Urine RBC (Auto) NEGATIVE NEGATIVE Urine RBC NONE /HPF Urine WBC NONE /HPF Urine Squamous Epithelial Cells 25-50 H /HPF Urine Crystals NONE /LPF Urine Bacteria NEGATIVE /HPF Urine Casts NONE /LPF Urine Mucus SMALL H /LPF Urine Culture Indicated NO My Orders Orders - SILVIA PARSON DO Ed Iv/Invasive Line Start (07/05/20 02:10) Ekg Tracing (07/05/20 02:10) Monitor-Rhythm Ecg Trace Only (07/05/20 02:10) Alcohol (07/05/20 02:10) Amylase (07/05/20 02:10) BNP (07/05/20 02:10) Cbc With Automated Diff (07/05/20 02:10) Comprehensive Metabolic Panel (07/05/20 02:10) Creatine Kinase (07/05/20 02:10) Creatine Kinase Mb (07/05/20 02:10) Drug Screen Stat (Urine) (07/05/20 02:10) Hcg,Qualitative Serum (07/05/20 02:10) Lipase (07/05/20 02:10) Magnesium (07/05/20 02:10) Ua Culture If Indicated (07/05/20 02:10) Myoglobin Serum (07/05/20 02:10) Troponin I (07/05/20 02:10) Chest 1 View, Ap/Pa Only (07/05/20 02:10) Ed Iv/Invasive Line Start (07/05/20 02:10) Aspirin Chewable Tablet (Baby Aspirin Ch (07/05/20 02:15) Manual Differential (07/05/20 02:18) Potassium Chloride (Tablet) (Klor Con Ta (07/05/20 03:15) Ketorolac Injection (Toradol Injection) (07/05/20 03:15) Hydroxyzine Cap/Tab (Vistaril) (07/05/20 03:15) Medications Given in ED Current Medications Medications Dose Ordered Sig/Ellie Route Start Time Stop Time Status Last Admin Dose Admin Hydroxyzine Pamoate 50 mg ONCE ONCE PO 07/05/20 03:15 07/05/20 03:16 DC 07/05/20 03:21 50 MG Ketorolac Tromethamine 30 mg ONCE ONCE IVP 07/05/20 03:15 07/05/20 03:16 DC 07/05/20 03:21 30 MG Potassium Chloride 40 meq ONCE ONCE PO 07/05/20 03:15 07/05/20 03:16 DC 07/05/20 03:20 40 MEQ Vital Signs/I&O 07/05/20 02:04 Temp 36.6 Pulse 80 Resp 22 B/P (MAP) 147/89 (108) O2 Delivery Room Air Blood Pressure Mean: 108 Departure Impression Primary Impression: Anxiety Additional Impressions: Chest pain Chest pain due to psychological stress Hypokalemia Disposition: 01 HOME, SELF-CARE Condition: Improved Departure-Patient Inst. Decision time for Depature: 03:24 Referrals: [facility] (PCP/Family) Primary Care Physician Patient Instructions: Chest Pain, Anxiety, Adult (DC), Hypokalemia (DC), Chest Pain That Is Not Caused by the Heart (DC) Add. Discharge Instructions: TYLENOL AND MOTRIN NEEDED FOR PAIN HOME, REST FOLLOW UP WITH YOUR DR NEXT WEEK FOR FURTHER CARE, RETURN TO ER IF WORSE All discharge instructions reviewed with patient and/or family. Voiced understanding. Scripts Hydroxyzine Pamoate (Hydroxyzine Pamoate) 50 Mg Capsule 50 MG PO Q6H PRN for ANXIETY, #15 CAP Prov: SILVIA PARSON DO 07/05/20 SILVIA PARSON DO July 05, 2020 03:13
[2020-07-05] MEDS ORDERED: KETOROLAC 30 MG/ML VIAL IVP ONE (03:15)
[2020-07-05] MEDS ORDERED: hydrOXYzine (VISTARIL/ATARAX) 25 MG capsule/tablet PO ONE (03:15)
[2020-07-05] MEDS ORDERED: KCL 10 MEQ TAB (MICRO K) PO ONE (03:15)
[2020-07-05 03:17] LABS: BILIRUBIN,URINE NEGATIVE (NEGATIVE); CLARITY,URINE CLEAR; COLOR,URINE YELLOW; GLUCOSE, URINE (UA) NEGATIVE (NEGATIVE); KETONES,URINE TRACE (NEGATIVE); LEUKOCYTE ESTERASE ,URINE NEGATIVE (NEGATIVE); NITRITE,URINE NEGATIVE (NEGATIVE); PROTEIN,URINE NEGATIVE (NEGATIVE)
[2020-07-05 03:23] LABS: BACTERIA,URINE NEGATIVE /HPF; SQUAMOUS EPITHELIAL CELL,UR 25-50 /HPF
[2020-07-05 03:35] LABS: BENZODIAZEPINES SCREEN URINE NEGATIVE (NEGATIVE); COCAINE SCREEN URINE NEGATIVE (NEGATIVE)
[2020-07-05 03:36] LABS: AMPHETAMINE SCREEN, URINE POSITIVE (NEGATIVE); BARBITURATE SCREEN URINE NEGATIVE (NEGATIVE); CANNABINOID SCREEN, URINE NEGATIVE (NEGATIVE); METHADONE STAT NEGATIVE (NEGATIVE); METHAMPHETAMINE SCREEN URINE S NEGATIVE (NEGATIVE); OPIATE SCREEN URINE NEGATIVE (NEGATIVE); OXYCODONE STAT NEGATIVE (NEGATIVE); PROPOXYPHENE STAT NEGATIVE (NEGATIVE); TRICYCLIC ANTIDEPRESSANTS SCRE NEGATIVE (NEGATIVE)
[2020-07-05 03:39] VITALS: BP 137/96
--- NOTE | 2020-07-05 07:43 | Diagnostic Imaging Report ---
Indication: Chest pain. Time of Exam: 2:29 AM Correlation is made with prior chest 08/27/2017. The heart size is normal. The pulmonary vascularity is unremarkable. The lungs are clear. No infiltrate, effusion or pneumothorax is detected. Impression: No acute cardiopulmonary process is detected. Dictated by: Dictated on workstation # [id number]
== END 2020-07-05 03:39 | disposition home or self-care (01) ==
LOC: EDUNIT# 02:02 → ER 02:03
DX: F41.9 Anxiety disorder, unspecified (principal); R07.9 Chest pain, unspecified; F45.42 Pain disorder with related psychological factors; E87.6 Hypokalemia; J45.909 Unspecified asthma, uncomplicated; G89.29 Other chronic pain; M54.9 Dorsalgia, unspecified; F32.9 Major depressive disorder, single episode, unspecified; F17.210 Nicotine dependence, cigarettes, uncomplicated; Z79.891 Long term (current) use of opiate analgesic; Z79.899 Other long term (current) drug therapy
CPT/HCPCS: 71045; 80053; 80306; 81000; 82150; 82550; 82553; 83690; 83735; 83874; 83880; 84484; 84703; 85007; 85027; 93005; 93041; 99284; G0480; 36415; 80320

== ENCOUNTER 2020-09-13 18:55 | Emergency (ER) | payer MEDICAID ==
[~2020-09-13] VITALS: Ht 165 cm; Wt 103.6 kg
[~2020-09-13 18:55] MED LIST changes: +HYDR50CA3 PO; -SULF1TAB35 PO; +SULF1TAB38 PO
--- NOTE | 2020-09-13 20:29 | ED General ---
General Chief Complaint: Fever-Adult/Adol Stated Complaint: DX W/ PNA & SEPSIS, SPINE PAIN, SWOLLEN LYMPH NODE Nursing Triage Note: PT PRESENTS TO THE ED C/O HEADACHE, SWOLLEN LYMPH NODES, JOINT PAIN, MALAISE, NAUSEA AND PHOTOPHOBIA THAT ONSET ONE WEEK AGO AFTER THE PT WAS SEEN AND TX FPR PPNUEMONIA. PT SWABBED FOR COVID ONE WEEK AGO. TESTED NEGATIVE Source of Information: Patient Allergies and Home Medications Allergies Coded Allergies: No Known Drug Allergies (Unverified , 03/11/13) Home Medications Albuterol Sulfate 6.7 Gm Hfa.aer.ad, 2 PUFF IH Q6H PRN for SHORTNESS OF BREATH, (Reported) Amoxicillin 500 Mg Capsule, 500 MG PO TID . Prescribed by: LIZBETH SALAZAR on 11/10/181955 Cefdinir 300 Mg Capsule, 300 MG PO BID Prescribed by: BLAKE BRO on 11/11/17215 Cephalexin 500 Mg Tablet, 500 MG PO TID Prescribed by: LIZBETH SALAZAR on 09/08/181210 Clindamycin HCl 300 Mg Capsule, 300 MG PO TID Prescribed by: LIZBETH SALAZAR on 03/15/18 222 Ferrous Sulfate 325 Mg Tablet, 325 MG PO DAILY, (Reported) Fluticasone Propionate 9.9 Ml [place].susp, 1 SPRAY NS DAILY PRN for ALLERGIES, (Reported) Gabapentin 100 Mg Capsule, 100 MG PO BID PRN for ANXIETY, (Reported) Hydrocodone/Acetaminophen 1 Each Tablet, 1 TAB PO Q6H do not fill unless amoxil is also filled. Prescribed by: LIZBETH SALAZAR on 11/10/181947 Hydroxyzine HCl 50 Mg Tablet, 50 MG PO HS, (Reported) Hydroxyzine Pamoate 50 Mg Capsule, 50 MG PO Q6H PRN for ANXIETY Prescribed by: SILVIA PARSON on 07/05/20 0313 Lisdexamfetamine Dimesylate 40 Mg Capsule, 40 MG PO DAILY, (Reported) Mupirocin 22 Gm Oint...g., 1 GM TP BID Prescribed by: LIZBETH SALAZAR on 09/08/18 121 Nitrofurantoin Monohyd/M-Cryst 100 Mg Capsule, 1 TAB PO BID Prescribed by: JACQUES ONEAL on 08/28/17 1401 Vortioxetine Hydrobromide 20 Mg Tablet, 20 MG PO DAILY, (Reported) Past Qkcbxwm-Lkafdy-Yhslog Hx Patient Social History Tobacco Use?: Yes Tobacco type used: Cigarettes Substance use?: No Alcohol Use?: No Immunizations Up To Date Tetanus Booster (TDap): Unknown Influenza Vaccine Up-to-Date: No; Not Current Seasonal Allergies Seasonal Allergies: Yes Past Medical History Surgeries: Yes (WISDOM TEETH REMOVED, CERVIX BIOPSY; LEFT ARM FX/ORIF' X 2) Adenoidectomy, Section, Gallbladder, Orthopedic, Tonsillectomy, Tubal Ligation Respiratory: Yes ("SITUATIONAL" ASTHMA--DOES NOT ROUTINELY USE AN INHALER) Asthma, Pneumonia Cardiac: No Neurological: Yes Headaches /Migraines Last Menstrual Period: Sep 06, 2020 Reproductive Disorders: No 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 Genitourinary: No Gastrointestinal: Yes Chronic Diarrhea, Esophagitis Musculoskeletal: Yes (LEFT ARM FX/ORIF, right ankle fx) Arthritis, Chronic Back Pain, Fractures Endocrine: No (OBESITY) HEENT: Yes (S/P T&A; CHRONIC DENTAL ISSUES) Tonsilitis Cancer: No Psychosocial: Yes (OVEDOSED ON TRAZADONE) ADD/ADHD, Anxiety, ODD, Suicide Attempts, Depression Integumentary: Yes (very sensitive skin-breaks out in rashes frequently) Psoriasis Blood Disorders: Yes (anemia) Adverse Reaction/Blood Tranf: No Family Medical History Diabetes mellitus 19 MOTHER FH: COPD (chronic obstructive pulmonary disease) 19 MOTHER FH: schizophrenia 19 MOTHER FH: uterine cancer Fibromyalgia 19 MOTHER Heart Disease, Cancer, Diabetes Physical Exam Vital Signs Vital Signs - First Documented 09/13/20 19:54 Temp 37.6 Pulse 95 Resp 20 B/P (MAP) 155/97 (116) Pulse Ox 99 O2 Delivery Room Air Capillary Refill : Less Than 3 Seconds Height, Weight, BMI Height: 5'5.00" Weight: 285lbs. 8.9oz. [id number]; 38.00 BMI Method:Stated Focused Exam Lactate Level 09/13/20 20:13: Lactic Acid Level 0.92 Lactic Acid Level Laboratory Tests Test 09/13/20 20:13 Lactic Acid Level 0.92 MMOL/L (0.50-2.00) Procedures/Interventions Dental Procedures: Dental I&D Progress/Results/Core Measures Suspected Sepsis SIRS Temperature: Pulse: 95 Respiratory Rate: 20 Laboratory Tests 09/13/20 20:13: White Blood Count 12.2H Blood Pressure 155 /97 Mean: 116 09/13/20 20:13: Lactic Acid Level 0.92 Laboratory Tests 09/13/20 20:13: Creatinine 0.83, INR Comment 1.0, Platelet Count 395, Total Bilirubin 0.4 Results/Orders Lab Results Laboratory Tests Test 09/13/20 20:13 09/13/20 20:52 09/13/20 22:20 Range/Units White Blood Count 12.2 H 4.3-11.0 10^3/uL Red Blood Count 4.26 3.80-5.11 10^6/uL Hemoglobin 12.3 11.5-16.0 g/dL Hematocrit 38 35-52 % Mean Corpuscular Volume 90 80-99 fL Mean Corpuscular Hemoglobin 29 25-34 pg Mean Corpuscular Hemoglobin Concent 32 32-36 g/dL Red Cell Distribution Width 14.9 H 10.0-14.5 % Platelet Count 395 130-400 10^3/uL Mean Platelet Volume 9.9 9.0-12.2 fL Immature Granulocyte % (Auto) 0 % Neutrophils (%) (Auto) 61 42-75 % Lymphocytes (%) (Auto) 33 12-44 % Monocytes (%) (Auto) 5 0-12 % Eosinophils (%) (Auto) 1 0-10 % Basophils (%) (Auto) 0 0-10 % Neutrophils # (Auto) 7.4 1.8-7.8 10^3/uL Lymphocytes # (Auto) 4.0 1.0-4.0 10^3/uL Monocytes # (Auto) 0.6 0.0-1.0 10^3/uL Eosinophils # (Auto) 0.1 0.0-0.3 10^3/uL Basophils # (Auto) 0.0 0.0-0.1 10^3/uL Immature Granulocyte # (Auto) 0.0 0.0-0.1 10^3/uL Erythrocyte Sedimentation Rate 20 0-20 MM/HR Prothrombin Time 13.4 12.2-14.7 SEC INR Comment 1.0 0.8-1.4 Activated Partial Thromboplast Time 27 24-35 SEC D-Dimer 0.19 0.00-0.49 UG/ML Sodium Level 139 135-145 MMOL/L Potassium Level 3.6 3.6-5.0 MMOL/L Chloride Level 106 98-107 MMOL/L Carbon Dioxide Level 22 21-32 MMOL/L Anion Gap 11 5-14 MMOL/L Blood Urea Nitrogen 8 7-18 MG/DL Creatinine 0.83 0.60-1.30 MG/DL Estimat Glomerular Filtration Rate 78 BUN/Creatinine Ratio 10 Glucose Level 83 70-105 MG/DL Lactic Acid Level 0.92 0.50-2.00 MMOL/L Calcium Level 9.8 8.5-10.1 MG/DL Corrected Calcium 9.6 8.5-10.1 MG/DL Magnesium Level 1.8 1.6-2.4 MG/DL Total Bilirubin 0.4 0.1-1.0 MG/DL Aspartate Amino Transf (AST/SGOT) 17 5-34 U/L Alanine Aminotransferase (ALT/SGPT) 19 0-55 U/L Alkaline Phosphatase 57 40-136 U/L Lactate Dehydrogenase 211 125-220 U/L Total Creatine Kinase 157 29-168 U/L Creatine Kinase MB 1.5 <6.6 NG/ML Myoglobin 35.7 10.0-92.0 NG/ML Troponin I < 0.028 <0.028 NG/ML C-Reactive Protein High Sensitivity 0.76 H 0.00-0.50 MG/DL Total Protein 7.3 6.4-8.2 GM/DL Albumin 4.3 3.2-4.5 GM/DL Amylase Level 45 25-125 U/L Lipase 26 8-78 U/L Procalcitonin 0.02 <0.10 NG/ML TSH [place] Testing 0.75 0.35-4.94 UIU/ML Serum Test, Qualitative NEGATIVE NEGATIVE Serum Alcohol < 10 <10 MG/DL Monoscreen NEGATIVE NEGATIVE Urine Color YELLOW Urine Clarity CLEAR Urine pH 6.0 5-9 Urine Specific [place] <=1.005 1.016-1.022 Urine Protein NEGATIVE NEGATIVE Urine Glucose (UA) NEGATIVE NEGATIVE Urine Ketones NEGATIVE NEGATIVE Urine Nitrite NEGATIVE NEGATIVE Urine Bilirubin NEGATIVE NEGATIVE Urine Urobilinogen 0.2 < = 1.0 MG/DL Urine Leukocyte Esterase NEGATIVE NEGATIVE Urine RBC (Auto) NEGATIVE NEGATIVE Urine RBC NONE /HPF Urine WBC 2-5 /HPF Urine Squamous Epithelial Cells NONE /HPF Urine Renal Epithelial Cells NONE /HPF Urine Crystals NONE /LPF Urine Bacteria FEW H /HPF Urine Casts NONE /LPF Urine Mucus NEGATIVE /LPF Urine Culture Indicated CULTURE PENDING Urine Opiates Screen NEGATIVE NEGATIVE Urine Oxycodone Screen NEGATIVE NEGATIVE Urine Methadone Screen NEGATIVE NEGATIVE Urine Propoxyphene Screen NEGATIVE NEGATIVE Urine Barbiturates Screen NEGATIVE NEGATIVE Ur Tricyclic Antidepressants Screen NEGATIVE NEGATIVE Urine Phencyclidine Screen NEGATIVE NEGATIVE Urine Amphetamines Screen POSITIVE H NEGATIVE Urine Methamphetamines Screen NEGATIVE NEGATIVE Urine Benzodiazepines Screen NEGATIVE NEGATIVE Urine Cocaine Screen NEGATIVE NEGATIVE Urine Cannabinoids Screen NEGATIVE NEGATIVE SARS-CoV-2 RNA (RT-PCR) Not Detected Not Detecte Group A Streptococcus Screen NEGATIVE NEGATIVE My Orders Orders - SILVIA PARSON DO Ed Iv/Invasive Line Start (09/13/20 20:29) Ekg Tracing (09/13/20:29) Monitor-Rhythm Ecg Trace Only (09/13/20:) Alcohol (09/13/20 20:29) Amylase (09/13/20 20:29) Cbc With Automated Diff (09/13/20:) Comprehensive Metabolic Panel (09/13/20 20:) Creatine Kinase (09/13/20 20:29) Creatine Kinase Mb (09/13/20 20:29) Hs C Reactive Protein (09/13/20 20:29) Fibrin Degradation Products (09/13/20 20:29) Drug Screen Stat (Urine) (09/13/20 20:) Lactic Acid Analyzer (09/13/20 20:29) Lipase (09/13/20 20:29) Magnesium (09/13/20 20:29) Procalcitonin (Pct) (09/13/20:) Protime With Inr (09/13/20:29) Partial Thromboplastin Time (09/13/20 20:29) Thyroid Analyzer (09/13/20 20:29) Ua Culture If Indicated (09/13/20 20:29) Blood Culture (09/13/20 20:29) Erythrocyte Sedimentation Rate (09/13/20 20:29) Myoglobin Serum (09/13/20 20:29) Troponin I (09/13/20 20:29) Ed Iv/Invasive Line Start (09/13/20 20:29) Lactated Ringers (Lr 1000 Ml Iv Solution (09/13/20 20:30) Urine Culture (09/13/20 20:29) Chest 1 View, Ap/Pa Only (09/13/20 20:29) Ed Iv/Invasive Line Start (09/13/20 20:29) Vital Signs Adult Sepsis Patie Q15M (09/13/20 20:29) O2 (09/13/20 20:29) Remove Rings In Anticipation O (09/13/20 20:29) LDH (09/13/20 20:29) Covid 19 Inhouse Test (09/13/20 20:29) Hcg,Qualitative Serum (09/13/20 20:29) Ct Angio Chest W (09/13/20 21:45) Monotest (09/13/20 21:51) Rapid Strep A Screen (09/13/20 21:51) Iohexol Injection (Omnipaque 350 Mg/Ml 1 (09/13/20 22:30) Ns (Ivpb) (Sodium Chloride 0.9% Ivpb Bag (09/13/20 22:30) Medications Given in ED Current Medications Medications Dose Ordered Sig/Ellie Route Start Time Stop Time Status Last Admin Dose Admin Iohexol 100 ml ONCE ONCE IV 09/13/20 22:30 09/13/20 22:32 DC 09/13/20 22:23 100 ML Lactated Ringer's 1,000 ml @ 0 mls/hr Q0M ONCE IV 09/13/20 20:30 09/13/20 20:36 DC 09/13/20 21:05 1,000 MLS/HR Sodium Chloride 80 ml ONCE ONCE IV 09/13/20 22:30 09/13/20 22:32 DC 09/13/20 22:23 80 ML Vital Signs/I&O 09/13/20 09/13/20 19:54 19:55 Temp 37.6 Pulse 95 Resp 20 B/P (MAP) 155/97 (116) Pulse Ox 99 99 O2 Delivery Room Air Room Air Capillary Refill : Less Than 3 Seconds Blood Pressure Mean: 116 Departure Impression Primary Impression: Pneumonitis Disposition: 01 HOME, SELF-CARE Condition: Stable Departure-Patient Inst. Referrals: [facility] (PCP/Family) Primary Care Physician Patient Instructions: Pneumonitis (DC) Add. Discharge Instructions: LOTS OF CLEAR LIQUIDS TYLENOL AND MOTRIN NEEDED FOR PAIN OR FEVER FOLLOW UP WITH [facility] IN 2-3 DAYS FOR FURTHER CARE All discharge instructions reviewed with patient and/or family. Voiced understanding. Scripts Prednisone (Prednisone) 20 Mg Tab 40 MG PO DAILY, #6 TAB 0 Refills Prov: SILVIA PRASON DO 09/13/20 Cefdinir (Cefdinir) 300 Mg Capsule 300 MG PO BID, #20 CAP Prov: SILVIA PARSON DO 09/13/20 SILVIA PARSON DO Sep 13, 2020 20:29
[2020-09-13] MEDS ORDERED: LACTATED RINGERS 1,000 ML IV ONE (20:30)
[2020-09-13 20:44] LABS: BASOPHILS % (AUTO) 0 % (0-10); EOSINOPHILS # (AUTO) 0.1 10^3/uL (0.0-0.3); EOSINOPHILS % (AUTO) 1 % (0-10); HEMATOCRIT 38 % (35-52); HEMOGLOBIN 12.3 g/dL (11.5-16.0); LYMPHOCYTES % (AUTO) 33 % (12-44); MEAN CORPUSCULAR HEMOGLOBIN 29 pg (25-34); MEAN CORPUSCULAR HGB CONC 32 g/dL (32-36); MEAN CORPUSCULAR VOLUME 90 fL (80-99); MEAN PLATELET VOLUME 9.9 fL (9.0-12.2); MONOCYTES # (AUTO) 0.6 10^3/uL (0.0-1.0); MONOCYTES % (AUTO) 5 % (0-12); NEUTROPHILS # (AUTO) 7.4 10^3/uL (1.8-7.8); NEUTROPHILS % (AUTO) 61 % (42-75); PLATELET COUNT 395 10^3/uL (130-400); WHITE BLOOD COUNT 12.2 10^3/uL (4.3-11.0)
[2020-09-13 20:53] LABS: PROTHROMBIN TIME PATIENT 13.4 SEC (12.2-14.7)
[2020-09-13 20:54] LABS: FIBRIN DEGRADATION PRODUCTS 0.19 UG/ML (0.00-0.49)
[2020-09-13 20:57] LABS: ALANINE AMINOTRANSFERASE 19 U/L (0-55); ALBUMIN 4.3 GM/DL (3.2-4.5); ALKALINE PHOSPHATASE 57 U/L (40-136); AMYLASE 45 U/L (25-125); BILIRUBIN,TOTAL 0.4 MG/DL (0.1-1.0); BUN/CREATININE RATIO 10; CALCIUM 9.8 MG/DL (8.5-10.1); CARBON DIOXIDE 22 MMOL/L (21-32); CHLORIDE 106 MMOL/L (98-107); CREATINE KINASE 157 U/L (29-168); CREATININE SERUM 0.83 MG/DL (0.60-1.30); GFR ESTIMATED 78; GLUCOSE 83 MG/DL (70-105); LIPASE 26 U/L (8-78); MAGNESIUM 1.8 MG/DL (1.6-2.4); POTASSIUM 3.6 MMOL/L (3.6-5.0); SODIUM 139 MMOL/L (135-145); TOTAL PROTEIN 7.3 GM/DL (6.4-8.2)
[2020-09-13 21:04] LABS: ERYTHROCYTE SEDIMENTATION RATE 20 MM/HR (0-20)
[2020-09-13 21:16] LABS: BILIRUBIN,URINE NEGATIVE (NEGATIVE); CLARITY,URINE CLEAR; COLOR,URINE YELLOW; GLUCOSE, URINE (UA) NEGATIVE (NEGATIVE); KETONES,URINE NEGATIVE (NEGATIVE); LEUKOCYTE ESTERASE ,URINE NEGATIVE (NEGATIVE); NITRITE,URINE NEGATIVE (NEGATIVE); PROTEIN,URINE NEGATIVE (NEGATIVE)
[2020-09-13 21:18] LABS: CREATINE KINASE MB 1.5 NG/ML (<6.6); TSH (THYROID ANALYZER) 0.75 UIU/ML (0.35-4.94)
[2020-09-13 21:26] LABS: BACTERIA,URINE FEW /HPF
[2020-09-13 21:27] LABS: AMPHETAMINE SCREEN, URINE POSITIVE (NEGATIVE); BARBITURATE SCREEN URINE NEGATIVE (NEGATIVE); BENZODIAZEPINES SCREEN URINE NEGATIVE (NEGATIVE); CANNABINOID SCREEN, URINE NEGATIVE (NEGATIVE); COCAINE SCREEN URINE NEGATIVE (NEGATIVE); METHADONE STAT NEGATIVE (NEGATIVE); METHAMPHETAMINE SCREEN URINE S NEGATIVE (NEGATIVE); OPIATE SCREEN URINE NEGATIVE (NEGATIVE); OXYCODONE STAT NEGATIVE (NEGATIVE); PROPOXYPHENE STAT NEGATIVE (NEGATIVE); TRICYCLIC ANTIDEPRESSANTS SCRE NEGATIVE (NEGATIVE)
--- NOTE | 2020-09-13 21:45 | Diagnostic Imaging Report ---
EXAMINATION: Chest radiograph, portable AP view. DATE: 09/13/2020 9:23 PM INDICATION: 34-year-old female, sepsis. COMPARISON: July 05, 2020. FINDINGS: Stable overall appearance of the cardiomediastinal silhouette. There is no identified pneumothorax. There is no large pleural effusion. There is no identified focal airspace consolidation. Lung volumes are low. IMPRESSION: Low lung volumes without identified acute cardiopulmonary abnormality. Dictated by: Dictated on workstation # [id number]
[2020-09-13] MEDS ORDERED: NS 100 ML (IVPB) BAG IV ONE (22:30)
[2020-09-13] MEDS ORDERED: IOHEXOL 350 MG/ML 100 ML (OMNIPAQUE 350) VIAL IV ONE (22:30)
[2020-09-13] MEDS ORDERED: PRD20T PO (23:27)
[2020-09-13] MEDS ORDERED: CEFD300C3 PO (23:27)
[2020-09-13] MEDS ORDERED: methylPREDNISolone 125 MG (Solu-MEDROL) VIAL IVP ONE (23:30)
[2020-09-13] MEDS ORDERED: cefTRIAXone 1,000 MG in WATER (STERILE) FOR INJECTION 10 ML IV ONE (23:30)
[2020-09-13 23:48] VITALS: BP 132/79
--- NOTE | 2020-09-14 07:36 | Diagnostic Imaging Report ---
PROCEDURE: CT angiography Chest TECHNIQUE: After intravenous administration of contrast, thin section axial CT angiography of the chest was performed. 3D MIP reconstructions were made. All CT scans use one or more of the following dose optimizing techniques: automated exposure control, MA and/or KvP adjustment based on a patient size and exam type, or iterative reconstruction. INDICATION: Sepsis, pneumonia COMPARISON: None available. FINDINGS: Vasculature: No pulmonary emboli. No CT evidence of pulmonary hypertension or right ventricular strain. Aorta is normal in caliber but due to suboptimal opacification, assessment for dissection is limited. Heart and mediastinum: Visualized thyroid is normal. No supraclavicular, axillary, or intra-thoracic lymphadenopathy. The heart is normal in size without pericardial effusion. Pleura: No pleural effusion or pneumothorax. Lungs and airway: No endoluminal lesion in the trachea or central bronchi. There is some patchy groundglass opacities in the mid lungs on both sides. No consolidation, mass or nodule. Upper abdomen: Allowing for the phase of contrast, no acute abnormality in the upper abdomen is seen. Cholecystectomy. Musculoskeletal: No concerning osseous lesion. IMPRESSION: 1. No pulmonary emboli. 2. Vague groundglass opacities in the mid lung zones could be due to dependent atelectasis. Atypical infection could potentially give this appearance as well. 3. Findings are in agreement with the preliminary report. Dictated by: Dictated on workstation # [id number]
== END 2020-09-14 00:12 | disposition home or self-care (01) ==
LOC: EDUNIT# 18:55 → ER 18:57
DX: J18.9 Pneumonia, unspecified organism (principal); E66.9 Obesity, unspecified; G89.29 Other chronic pain; M54.9 Dorsalgia, unspecified; F41.9 Anxiety disorder, unspecified; F32.9 Major depressive disorder, single episode, unspecified; Z20.822 Contact with and (suspected) exposure to COVID-19; Z68.38 Body mass index [BMI] 38.0-38.9, adult; Z79.891 Long term (current) use of opiate analgesic; Z79.899 Other long term (current) drug therapy
CPT/HCPCS: 71045; 71275; 80053; 80306; 81000; 82150; 82550; 82553; 83605; 83615; 83690; 83735; 83874; 84145; 84443; 84484; 84703; 85025; 85379; 85610; 85652; 85730; 86141; 86308; 87040; 87088; 87430; 87636; 93041; 99284; G0480; 36415; 80320; 87077; 87186

== ENCOUNTER 2021-06-28 20:48 | Emergency (ER) | payer MEDICAID ==
[~2021-06-28] VITALS: Ht 165.1 cm; Wt 100.0 kg
[~2021-06-28 20:48] MED LIST changes: +CLIN-144 PO; -CLIN150C18 PO; +CLIN150C20 PO; -CLIN300C12 PO; -PSEU-137 PO; +PSEU-182 PO
[2021-06-28 21:09] LABS: BILIRUBIN,URINE NEGATIVE (NEGATIVE); CLARITY,URINE CLEAR; COLOR,URINE YELLOW; GLUCOSE, URINE (UA) NEGATIVE (NEGATIVE); KETONES,URINE NEGATIVE (NEGATIVE); LEUKOCYTE ESTERASE ,URINE 2+ (NEGATIVE); NITRITE,URINE NEGATIVE (NEGATIVE); PROTEIN,URINE NEGATIVE (NEGATIVE)
[2021-06-28] MEDS ORDERED: KETOROLAC 15 MG/ML VIAL IVP STA (21:11)
--- NOTE | 2021-06-28 21:11 | ED Abdominal Pain ---
General Chief Complaint: Abdominal/GI Problems Stated Complaint: ABD/BACK PAIN History of Present Illness Date Seen by Provider: June 28, 2021 Time Seen by Provider: 21:01 Initial Comments 35 yr F with PMH of Asthma is here with c/o right flank pain and suprapubic pain which has been worsening over the past couple of days. It is associated with nausea and dysuria. Denies fever, chills, diarrhea, hematuria. Pain is constant, and 7/10. Pt has not been drinking much water lately. Allergies and Home Medications Allergies Coded Allergies: No Known Drug Allergies (Unverified , 03/11/13) Patient Home Medication List Home Medication List Reviewed: Yes Albuterol Sulfate (Proventil Hfa) 6.7 Gm Hfa.aer.ad, 2 PUFF IH Q6H PRN for SHORTNESS OF BREATH, (Reported) Entered as Reported by: ARMANI SCOTT on 10/23/16 1013 Amoxicillin (Amoxicillin) 500 Mg Capsule, 500 MG PO TID Prescribed by: LIZBETH SALAZAR on 11/10/18 1956 Cefdinir (Cefdinir) 300 Mg Capsule, 300 MG PO BID Prescribed by: BLAKE BRO on 11/11/17 0216 Cefdinir (Cefdinir) 300 Mg Capsule, 300 MG PO BID Prescribed by: SILVIA PARSON on 09/13/20 2327 Cefpodoxime Proxetil (Cefpodoxime Proxetil) 100 Mg Tablet, 100 MG PO Q12H Prescribed by: NANY AMEZCUA MD on 06/28/21 232 Cephalexin (Cephalexin) 500 Mg Tablet, 500 MG PO TID Prescribed by: LIZBETH SALAZAR on 09/08/18 1211 Clindamycin HCl (Clindamycin HCl) 300 Mg Capsule, 300 MG PO TID Prescribed by: LIZBETH SALAZAR on 03/15/18 2223 Ferrous Sulfate (Iron) 325 Mg Tablet, 325 MG PO DAILY, (Reported) Entered as Reported by: LEONARDO PALACIOS on 08/28/17 0948 Fluticasone Propionate (Flonase Allergy Relief) 9.9 Ml [place].susp, 1 SPRAY NS DAILY PRN for ALLERGIES, (Reported) Entered as Reported by: ARMANI SCOTT on 10/23/16 1013 Gabapentin (Gabapentin) 100 Mg Capsule, 100 MG PO BID PRN for ANXIETY, (Reported) Entered as Reported by: ARMANI SCOTT on 10/23/16 1013 Hydrocodone/Acetaminophen (Hydrocodone/Acetaminophen 5 MG/325 MG TAB) 1 Each Tablet, 1 TAB PO Q6H Prescribed by: LIZBETH SALAZAR on 11/10/18 194 Hydroxyzine HCl (Hydroxyzine HCl) 50 Mg Tablet, 50 MG PO HS, (Reported) Entered as Reported by: ARMANI SCOTT on 10/23/16 1013 Hydroxyzine Pamoate (Hydroxyzine Pamoate) 50 Mg Capsule, 50 MG PO Q6H PRN for ANXIETY Prescribed by: SILVIA PARSON on 07/05/20 0313 Lisdexamfetamine Dimesylate (Vyvanse) 40 Mg Capsule, 40 MG PO DAILY, (Reported) Entered as Reported by: LEONARDO PALACIOS on 08/28/17 0945 Mupirocin (Mupirocin) 22 Gm Oint...g., 1 GM TP BID Prescribed by: LIZBETH SALAZAR on 09/08/18 1211 Nitrofurantoin Monohyd/M-Cryst (Macrobid 100 mg Capsule) 100 Mg Capsule, 1 TAB PO BID Prescribed by: JACQUES ONEAL on 08/28/17 1401 Ondansetron (Ondansetron Odt) 4 Mg Tab.rapdis, 4 MG PO Q6H Prescribed by: NANY AMEZCUA MD on 06/28/21 2320 Prednisone (Prednisone) 20 Mg Tab, 40 MG PO DAILY Prescribed by: SILVIA PARSON on 09/13/20 2327 Vortioxetine Hydrobromide (Trintellix) 20 Mg Tablet, 20 MG PO DAILY, (Reported) Entered as Reported by: KATALINA YOUNG on 05/26/16 2687 Review of Systems Review of Systems Constitutional: no symptoms reported EENTM: No Symptoms Reported Respiratory: No Symptoms Reported Cardiovascular: No Symptoms Reported Gastrointestinal: Abdominal Pain, Nausea Genitourinary: Burning, Flank Pain Musculoskeletal: no symptoms reported Skin: no symptoms reported Psychiatric/Neurological: No Symptoms Reported Endocrine: No Symptoms Reported Hematologic/Lymphatic: No Symptoms Reported Past Hfmqbsd-Vcptan-Lmmhis Hx Patient Social History Tobacco Use?: Yes Tobacco type used: Cigarettes Smoking Status: Current Everyday Smoker Use of E-Cig and/or Vaping dev: No Substance use?: No Alcohol Use?: Yes Alcohol type: Beer, Hard Liquor, Wine Alcohol Frequency: Several times a month Pt feels they are or have been: No Immunizations Up To Date Tetanus Booster (TDap): Unknown Influenza Vaccine Up-to-Date: No; Not Current Seasonal Allergies Seasonal Allergies: Yes Past Medical History 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 [employer] History: Tubal Ligation Genitourinary: No Gastrointestinal: Yes Chronic Diarrhea, Esophagitis Musculoskeletal: Yes (LEFT ARM FX/ORIF, right ankle fx) Arthritis, Chronic Back Pain, Fractures Endocrine: No (OBESITY) HEENT: Yes (S/P T&A; CHRONIC DENTAL ISSUES) Tonsilitis Cancer: No Psychosocial: Yes (OVEDOSED ON TRAZADONE) ADD/ADHD, Anxiety, ODD, Suicide Attempts, Depression Integumentary: Yes (very sensitive skin-breaks out in rashes frequently) Psoriasis Blood Disorders: Yes (anemia) Adverse Reaction/Blood Tranf: No Family Medical History Diabetes mellitus 19 MOTHER FH: COPD (chronic obstructive pulmonary disease) 19 MOTHER FH: schizophrenia 19 MOTHER FH: uterine cancer Fibromyalgia 19 MOTHER Heart Disease, Cancer, Diabetes Physical Exam Vital Signs Vital Signs - First Documented 06/28/21 21:07 Temp 37.1 Pulse 104 Resp 20 B/P (MAP) 151/98 (115) Pulse Ox 98 O2 Delivery Room Air Capillary Refill : Height/Weight/BMI Height: 5'5.00" Weight: 285lbs. 8.9oz. 129.416675oh; 38.00 BMI Method:Stated General Appearance: WD/WN, no apparent distress HEENT: PERRL/EOMI Neck: non-tender, full range of motion Respiratory: lungs clear Cardiovascular: regular rate, rhythm Gastrointestinal: normal bowel sounds, soft, no organomegaly, tenderness (suprapubic tenderness and ) Back: normal inspection, no vertebral tenderness, CVA tenderness (R) Neurologic/Psychiatric: alert, normal mood/affect, oriented x 3 Skin: normal color Procedures/Interventions Dental Procedures: Dental I&D Progress/Results/Core Measures Results/Orders Lab Results Laboratory Tests Test 06/28/21 21:00 06/28/21 21:39 Range/Units Urine Color YELLOW Urine Clarity CLEAR Urine pH 6.0 5-9 Urine Specific [place] >=1.030 1.016-1.022 Urine Protein NEGATIVE NEGATIVE Urine Glucose (UA) NEGATIVE NEGATIVE Urine Ketones NEGATIVE NEGATIVE Urine Nitrite NEGATIVE NEGATIVE Urine Bilirubin NEGATIVE NEGATIVE Urine Urobilinogen 0.2 < = 1.0 MG/DL Urine Leukocyte Esterase 2+ H NEGATIVE Urine RBC (Auto) NEGATIVE NEGATIVE Urine RBC NONE /HPF Urine WBC 10-25 H /HPF Urine Squamous Epithelial Cells 0-2 /HPF Urine Renal Epithelial Cells NONE /HPF Urine Crystals NONE /LPF Urine Bacteria FEW H /HPF Urine Casts NONE /LPF Urine Mucus LARGE H /LPF Urine Yeast FEW H /HPF Urine Culture Indicated YES Urine Test NEGATIVE NEGATIVE White Blood Count 8.7 4.3-11.0 10^3/uL Red Blood Count 3.95 3.80-5.11 10^6/uL Hemoglobin 11.6 11.5-16.0 g/dL Hematocrit 35 35-52 % Mean Corpuscular Volume 89 80-99 fL Mean Corpuscular Hemoglobin 29 25-34 pg Mean Corpuscular Hemoglobin Concent 33 32-36 g/dL Red Cell Distribution Width 14.6 H 10.0-14.5 % Platelet Count 292 130-400 10^3/uL Mean Platelet Volume 10.4 9.0-12.2 fL Immature Granulocyte % (Auto) 0 % Neutrophils (%) (Auto) 72 42-75 % Lymphocytes (%) (Auto) 21 12-44 % Monocytes (%) (Auto) 5 0-12 % Eosinophils (%) (Auto) 2 0-10 % Basophils (%) (Auto) 0 0-10 % Neutrophils # (Auto) 6.2 1.8-7.8 10^3/uL Lymphocytes # (Auto) 1.9 1.0-4.0 10^3/uL Monocytes # (Auto) 0.4 0.0-1.0 10^3/uL Eosinophils # (Auto) 0.2 0.0-0.3 10^3/uL Basophils # (Auto) 0.0 0.0-0.1 10^3/uL Immature Granulocyte # (Auto) 0.0 0.0-0.1 10^3/uL Sodium Level 137 135-145 MMOL/L Potassium Level 3.7 3.6-5.0 MMOL/L Chloride Level 103 98-107 MMOL/L Carbon Dioxide Level 22 21-32 MMOL/L Anion Gap 12 5-14 MMOL/L Blood Urea Nitrogen 7 7-18 MG/DL Creatinine 0.78 0.60-1.30 MG/DL Estimat Glomerular Filtration Rate 101 BUN/Creatinine Ratio 9 Glucose Level 85 70-105 MG/DL Calcium Level 8.5 8.5-10.1 MG/DL Corrected Calcium 8.7 8.5-10.1 MG/DL Total Bilirubin 0.3 0.1-1.0 MG/DL Aspartate Amino Transf (AST/SGOT) 18 5-34 U/L Alanine Aminotransferase (ALT/SGPT) 12 0-55 U/L Alkaline Phosphatase 45 40-136 U/L Total Protein 6.1 L 6.4-8.2 GM/DL Albumin 3.8 3.2-4.5 GM/DL Lipase 34 8-78 U/L My Orders Orders - NANY AMEZCUA MD Ct Abdomen/Pelvis W (06/28/21 21:11) Cbc With Automated Diff (06/28/21 21:11) Comprehensive Metabolic Panel (06/28/21 21:11) Lipase (06/28/21 21:11) Ed Iv/Invasive Line Start (06/28/21 21:11) Ns Iv 1000 Ml (Sodium Chloride 0.9%) (06/28/21 21:15) Iohexol Injection (Omnipaque 350 Mg/Ml 1 (06/28/21 21:30) Received Contrast (Hold Metformin- Contr (06/28/21 21:30) Ns (Ivpb) (Sodium Chloride 0.9% Ivpb Bag (06/28/21 21:30) Ketorolac Injection (Toradol Injection) (06/28/21 21:45) Ceftriaxone 1 Gm Pre-Mix (Rocephin 1 Gm (06/28/21 22:49) Medications Given in ED Current Medications Medications Dose Ordered Sig/Ellie Route Start Time Stop Time Status Last Admin Dose Admin Iohexol 100 ml ONCE ONCE IV 06/28/21 21:30 06/28/21 21:31 DC 06/28/21 21:26 100 ML Ketorolac Tromethamine 15 mg ONCE ONCE IVP 06/28/21 21:45 06/28/21 21:46 DC 06/28/21 21:45 15 MG Sodium Chloride 100 ml ONCE ONCE IV 06/28/21 21:30 06/28/21 21:31 DC 06/28/21 21:26 80 ML Vital Signs/I&O 06/28/21 21:07 Temp 37.1 Pulse 104 Resp 20 B/P (MAP) 151/98 (115) Pulse Ox 98 O2 Delivery Room Air Progress Progress Note : Progress Note 1. ACUTE CYSTITIS & PYELONEPHRITIS, RIGHT: - UA is positive for LE, bacteria, and WBC - NS IVF bolus - Ceftriaxone 1gm iv STAT. Will give prescription for Cefpodoxime BID for 14 days - NSAID prn pain - Adequate hydration discussed - F/u with PCP in 5 to 7 days -The patient was seen in the ED, and treated appropriately to presentation at a specific point in time. Patient is informed that there is a possibility that disease and illness can evolve and change in acuity rapidly or slowly after patient is discharged from the ER. Precautionary advice given to the patient for immediate return to ER if symptoms worsen or do not resolve, and to seek emergency care sooner rather than later. Pt also advised on the importance of PCP follow up and compliance with management and follow up plan with PCP and/or specialist, as this is part of the management plan. Pt verbally expressed understanding. Diagnostic Imaging Diagonstic Imaging: CT Plain Films/CT/US/NM/MRI: abdomen Comments [facility], [place] NAME: [facility] REC#: [id number] PT STATUS: REG ER : 1985 PHYSICIAN: NANY AMEZCUA MD ADMIT DATE: 06/28/21/ER Draft Date of Exam:06/28/21 CT ABDOMEN/PELVIS W CLINICAL INDICATION: Patient complains of abdominal pain and back pain x2 days. Patient's pain is sharp in nature. EXAM: Axial CT scan of the abdomen and pelvis performed with 100 mL of Omnipaque IV contrast. Sagittal and coronal reformatted images were created. Auto Exposure Controls were utilized during the CT exam to meet ALARA standards for radiation dose reduction. COMPARISON: CT scan of the abdomen and pelvis with contrast dated 09/08/2018. FINDINGS: There is mild atelectasis involving the posterior aspects of both lung bases. Bones show no significant abnormality. Small area of focal fatty infiltration involving the left lobe of the liver near the falciform ligament is noted and has developed in the interim. Liver is otherwise unremarkable. Gallbladder is surgically absent in the interim. Previously seen diffuse fatty infiltration has improved and is not significantly seen on this exam. The spleen, pancreas and adrenal glands are unremarkable. Both kidneys are unremarkable with no hydronephrosis or mass. Bladder has a small amount of fluid within it but is predominantly decompressed. There is diffuse bladder wall thickening which is nonspecific. The uterus and adnexal structures show no significant abnormality. There is no intraabdominal free air or free fluid. There is no abdominal or pelvic lymphadenopathy. There are several diverticula involving the proximal sigmoid colon, descending colon, and transverse colon. There is no CT evidence of diverticulitis. There is no intestinal obstruction. There is thickening of the distal esophagus which is nonspecific. Stomach is decompressed with wall thickening which is nonspecific. Appendix is unremarkable. The extraabdominal and extrapelvic soft tissue structures are unremarkable. IMPRESSION: 1: There is no definite CT evidence of acute abdominal or pelvic process. 2: There is nonspecific thickening of the distal esophagus which may be related to contraction or esophagitis. 3: There is diverticulosis with no CT evidence of diverticulitis. 4: Bladder is decompressed with diffuse wall thickening. This may be related to incomplete distention, but cystitis cannot be completely excluded. 5: Gallbladder is surgically absent. 6: Previously seen diffuse fatty infiltration has improved in the interim. Dictated on workstation # [id number] Dict: 06/28/21 2148 Trans: 06/28/21 2204 [facility] [id number] Interpreted by: YEHUDA GARDINER MD Electronically signed by: Departure Impression Primary Impression: Acute cystitis Qualified Codes: N30.00 - Acute cystitis without hematuria Additional Impression: Pyelonephritis Disposition: 01 HOME, SELF-CARE Condition: Stable Departure-Patient Inst. Referrals: [facility] (PCP/Family) Primary Care Physician Patient Instructions: Urinary Tract Infections in Adults, Kidney Infection Add. Discharge Instructions: Will give prescription for Cefpodoxime BID for 14 days - NSAID prn pain - Adequate hydration discussed - F/u with PCP in 5 to 7 days -The patient was seen in the ED, and treated appropriately to presentation at a specific point in time. Patient is informed that there is a possibility that disease and illness can evolve and change in acuity rapidly or slowly after patient is discharged from the ER. Precautionary advice given to the patient for immediate return to ER if symptoms worsen or do not resolve, and to seek emergency care sooner rather than later. Pt also advised on the importance of PCP follow up and compliance with management and follow up plan with PCP and/or specialist, as this is part of the management plan. Pt verbally expressed understanding. All discharge instructions reviewed with patient and/or family. Voiced understanding. Scripts Ondansetron (Ondansetron Odt) 4 Mg Tab.rapdis 4 MG PO Q6H for Nausea/Vomiting, #10 TAB Prov: NANY AMEZCUA MD 06/28/21 Cefpodoxime Proxetil (Cefpodoxime Proxetil) 100 Mg Tablet 100 MG PO Q12H for 14 Days, #28 TAB Prov: NANY AMEZCUA MD 06/28/21 Work/School Note: Work Release Form Date Seen in the Emergency Department: June 28, 2021 Return to Work: July 01, 2021 Restrictions: Need Release from Doctor, Return-No Vomiting(24hrs) NANY AMEZCUA MD June 28, 2021 21:11
[2021-06-28] MEDS ORDERED: NS IV 1000 ML 1,000 ML IV SCH (21:15)
[2021-06-28] MEDS ORDERED: IOHEXOL 350 MG/ML 100 ML (OMNIPAQUE 350) VIAL IV ONE (21:30)
[2021-06-28] MEDS ORDERED: NS 100 ML (IVPB) BAG IV ONE (21:30)
[2021-06-28] MEDS ORDERED: HOLD METFORMIN - RECEIVED CONTRAST 20 ML VIAL IV SCH (21:30)
[2021-06-28 21:32] LABS: BACTERIA,URINE FEW /HPF; SQUAMOUS EPITHELIAL CELL,UR 0-2 /HPF; YEAST,URINE FEW /HPF
[2021-06-28] MEDS ORDERED: KETOROLAC 30 MG/ML VIAL IVP ONE (21:45)
[2021-06-28 21:48] LABS: BASOPHILS % (AUTO) 0 % (0-10); EOSINOPHILS # (AUTO) 0.2 10^3/uL (0.0-0.3); EOSINOPHILS % (AUTO) 2 % (0-10); HEMATOCRIT 35 % (35-52); HEMOGLOBIN 11.6 g/dL (11.5-16.0); LYMPHOCYTES # (AUTO) 1.9 10^3/uL (1.0-4.0); LYMPHOCYTES % (AUTO) 21 % (12-44); MEAN CORPUSCULAR HEMOGLOBIN 29 pg (25-34); MEAN CORPUSCULAR HGB CONC 33 g/dL (32-36); MEAN CORPUSCULAR VOLUME 89 fL (80-99); MEAN PLATELET VOLUME 10.4 fL (9.0-12.2); MONOCYTES # (AUTO) 0.4 10^3/uL (0.0-1.0); MONOCYTES % (AUTO) 5 % (0-12); NEUTROPHILS # (AUTO) 6.2 10^3/uL (1.8-7.8); NEUTROPHILS % (AUTO) 72 % (42-75); PLATELET COUNT 292 10^3/uL (130-400); WHITE BLOOD COUNT 8.7 10^3/uL (4.3-11.0)
[2021-06-28 22:02] LABS: ALBUMIN 3.8 GM/DL (3.2-4.5); POTASSIUM 3.7 MMOL/L (3.6-5.0)
[2021-06-28 22:03] LABS: CALCIUM 8.5 MG/DL (8.5-10.1)
[2021-06-28 22:05] LABS: TOTAL PROTEIN 6.1 GM/DL (6.4-8.2)
--- NOTE | 2021-06-28 22:05 | Diagnostic Imaging Report ---
CLINICAL INDICATION: Patient complains of abdominal pain and back pain x2 days. Patient's pain is sharp in nature. EXAM: Axial CT scan of the abdomen and pelvis performed with 100 mL of Omnipaque IV contrast. Sagittal and coronal reformatted images were created. Auto Exposure Controls were utilized during the CT exam to meet ALARA standards for radiation dose reduction. COMPARISON: CT scan of the abdomen and pelvis with contrast dated 09/08/2018. FINDINGS: There is mild atelectasis involving the posterior aspects of both lung bases. Bones show no significant abnormality. Small area of focal fatty infiltration involving the left lobe of the liver near the falciform ligament is noted and has developed in the interim. Liver is otherwise unremarkable. Gallbladder is surgically absent in the interim. Previously seen diffuse fatty infiltration has improved and is not significantly seen on this exam. The spleen, pancreas and adrenal glands are unremarkable. Both kidneys are unremarkable with no hydronephrosis or mass. Bladder has a small amount of fluid within it but is predominantly decompressed. There is diffuse bladder wall thickening which is nonspecific. The uterus and adnexal structures show no significant abnormality. There is no intraabdominal free air or free fluid. There is no abdominal or pelvic lymphadenopathy. There are several diverticula involving the proximal sigmoid colon, descending colon, and transverse colon. There is no CT evidence of diverticulitis. There is no intestinal obstruction. There is thickening of the distal esophagus which is nonspecific. Stomach is decompressed with wall thickening which is nonspecific. Appendix is unremarkable. The extraabdominal and extrapelvic soft tissue structures are unremarkable. IMPRESSION: 1: There is no definite CT evidence of acute abdominal or pelvic process. 2: There is nonspecific thickening of the distal esophagus which may be related to contraction or esophagitis. 3: There is diverticulosis with no CT evidence of diverticulitis. 4: Bladder is decompressed with diffuse wall thickening. This may be related to incomplete distention, but cystitis cannot be completely excluded. 5: Gallbladder is surgically absent. 6: Previously seen diffuse fatty infiltration has improved in the interim. Dictated by: Dictated on workstation # [id number]
[2021-06-28 22:06] LABS: BILIRUBIN,TOTAL 0.3 MG/DL (0.1-1.0)
[2021-06-28 22:08] LABS: CREATININE SERUM 0.78 MG/DL (0.60-1.30)
[2021-06-28] MEDS ORDERED: LORazepam 0.5 MG (ATIVAN) TABLET PO STA (22:41)
[2021-06-28] MEDS ORDERED: cefTRIAXone 1 GM PRE-MIX 50 ML IV STA (22:49)
[2021-06-28] MEDS ORDERED: CEFP100T2 PO (23:20)
[2021-06-28] MEDS ORDERED: ONDA4TAB11 PO (23:20)
[2021-06-28 23:30] VITALS: BP 137/96
== END 2021-06-28 23:32 | disposition home or self-care (01) ==
LOC: EDUNIT# 20:48 → ER 20:50
DX: N12 Tubulo-interstitial nephritis, not specified as acute or chronic (principal); N30.00 Acute cystitis without hematuria; E66.9 Obesity, unspecified; F17.210 Nicotine dependence, cigarettes, uncomplicated; Z32.02 Encounter for pregnancy test, result negative
CPT/HCPCS: 36415; 74177; 80053; 81000; 83690; 84703; 85025; 87088

== ENCOUNTER 2021-10-02 22:42 | Emergency (ER) | payer MEDICAID ==
[~2021-10-02] VITALS: Ht 165 cm; Wt 107.0 kg
[~2021-10-02 22:42] MED LIST changes: +CEFP100T2 PO; +ONDA4TAB11 PO
--- NOTE | 2021-10-03 00:10 | ED EENT ---
History of Present Illness General Chief Complaint: Dental Problems/Pain Stated Complaint: DENTAL PAIN,HEAD AND EAR PAIN,GUMS SWELLING Nursing Triage Note: PT REPORTS TO ED FOR RIGHT SIDED DENTAL PAIN. PT STATES THAT IT STARTED 09/29/21 BUT HAS GOTTEN WORSE. PAIN IS RADIATING TO HEAD. PT'S PAIN IS SO SEVERE SHE HAD TO LEAVE WORK TODAY. PT AMB. TO ROOM WITHOUT DIFFICULTY. Source: patient Exam Limitations: no limitations History of Present Illness Date Seen by Provider: Oct 02, 2021 Time Seen by Provider: 23:49 Initial Comments Patient to ER by private conveyance chief complaint last couple days she is had some swelling pain in her right jaw radiating to her right ear. She has significant dental caries and has been making attempts to get an appointment with her dentist at [facility]. She has not been on antibiotics. She thinks may had a subjective fever early on but she has been using Tylenol and ibuprofen for her pain and has not had any fevers subjectively. She is not having any nausea vomiting diarrhea constipation chest pain shortness of air Allergies and Home Medications Allergies Coded Allergies: No Known Drug Allergies (Unverified , 03/11/13) Patient Home Medication List Home Medication List Reviewed: Yes Albuterol Sulfate (Proventil Hfa) 6.7 Gm Hfa.aer.ad, 2 PUFF IH Q6H PRN for SHORTNESS OF BREATH, (Reported) Entered as Reported by: ARMANI SCOTT on 10/23/16 1013 Amoxicillin (Amoxicillin) 500 Mg Capsule, 500 MG PO TID Prescribed by: LIZBETH SALAZAR on 11/10/18 195 Amoxicillin/Potassium Clav (Amox Tr-K Clv 875-125 mg Tab) 875 Mg-125 Mg Tablet, 1 EACH PO BID Prescribed by: LORETO EMERY on 10/03/21 0012 Cefdinir (Cefdinir) 300 Mg Capsule, 300 MG PO BID Prescribed by: BLAKE BRO on 11/11/17 0216 Cefdinir (Cefdinir) 300 Mg Capsule, 300 MG PO BID Prescribed by: SILVIA PARSON on 09/13/20 232 Cefpodoxime Proxetil (Cefpodoxime Proxetil) 100 Mg Tablet, 100 MG PO Q12H Prescribed by: NANY AMEZCUA MD on 06/28/21 232 Cephalexin (Cephalexin) 500 Mg Tablet, 500 MG PO TID Prescribed by: LIZBETH SALAZAR on 09/08/18 1211 Clindamycin HCl (Clindamycin HCl) 300 Mg Capsule, 300 MG PO TID Prescribed by: LIZBETH SALAZAR on 03/15/18 2223 Ferrous Sulfate (Iron) 325 Mg Tablet, 325 MG PO DAILY, (Reported) Entered as Reported by: LEONARDO PALACIOS on 08/28/17 0948 Fluticasone Propionate (Flonase Allergy Relief) 9.9 Ml [place].susp, 1 SPRAY NS DAILY PRN for ALLERGIES, (Reported) Entered as Reported by: ARMANI SCOTT on 10/23/16 1013 Gabapentin (Gabapentin) 100 Mg Capsule, 100 MG PO BID PRN for ANXIETY, (Reporte d) Entered as Reported by: ARMANI SCOTT on 10/23/16 1013 Hydrocodone/Acetaminophen (Hydrocodone/Acetaminophen 5 MG/325 MG TAB) 1 Each Tablet, 1 TAB PO Q6H Prescribed by: LIZBETH SALAZAR on 11/10/18 1948 Hydroxyzine HCl (Hydroxyzine HCl) 50 Mg Tablet, 50 MG PO HS, (Reported) Entered as Reported by: ARMANI SCOTT on 10/23/16 1013 Hydroxyzine Pamoate (Hydroxyzine Pamoate) 50 Mg Capsule, 50 MG PO Q6H PRN for ANXIETY Prescribed by: SILVIA PARSON on 07/05/20 0313 Lisdexamfetamine Dimesylate (Vyvanse) 40 Mg Capsule, 40 MG PO DAILY, (Reported) Entered as Reported by: LEONARDO PALACIOS on 08/28/17 0945 Mupirocin (Mupirocin) 22 Gm Oint...g., 1 GM TP BID Prescribed by: LIZBETH SALAZAR on 09/08/18 1211 Nitrofurantoin Monohyd/M-Cryst (Macrobid 100 mg Capsule) 100 Mg Capsule, 1 TAB PO BID Prescribed by: JACQUES ONEAL on 08/28/17 1401 Ondansetron (Ondansetron Odt) 4 Mg Tab.rapdis, 4 MG PO Q6H Prescribed by: NANY AMEZCUA MD on 06/28/21 232 Prednisone (Prednisone) 20 Mg Tab, 40 MG PO DAILY Prescribed by: SILVIA PARSON on 09/13/20 2327 Vortioxetine Hydrobromide (Trintellix) 20 Mg Tablet, 20 MG PO DAILY, (Reported) Entered as Reported by: KATALINA YOUNG on 05/26/16 4004 Review of Systems Review of Systems Constitutional: No chills, No diaphoresis Eyes: Denies Blindness, Denies Blurred Vision, Denies Drainage Ears: Denies Dizziness, Denies Pain Nose: denies clots, denies congestion, denies epistaxis, denies pain Mouth: see HPI; denies clots, denies loose teeth; pain Throat: denies pain, denies swelling Respiratory: No stridor, No wheezing Cardiovascular: No chest pain, No edema All Other Systems Reviewed Negative Unless Noted: Yes Past Wueyffb-Prlubc-Aengkg Hx Patient Social History Tobacco Use?: Yes Tobacco type used: Cigarettes Smoking Status: Current Everyday Smoker Use of E-Cig and/or Vaping dev: No Substance use?: No Alcohol Use?: Yes Alcohol type: Beer Alcohol Frequency: Rarely Pt feels they are or have been: No Immunizations Up To Date Tetanus Booster (TDap): Unknown First/Initial COVID19 Vaccinat: 01/2021 Second COVID19 Vaccination Kamran: 02/2021 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 SURGERY;T&A, GALLBLADDER, , TUBAL, AND X'S 2. 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 Genitourinary: No Gastrointestinal: Yes Chronic Diarrhea, Esophagitis Musculoskeletal: Yes (LEFT ARM FX/ORIF, right ankle fx) Arthritis, Chronic Back Pain, Fractures Endocrine: No (OBESITY) HEENT: Yes (S/P T&A; CHRONIC DENTAL ISSUES) Tonsilitis Cancer: No Psychosocial: Yes (OVEDOSED ON TRAZADONE) ADD/ADHD, Anxiety, ODD, Suicide Attempts, Depression Integumentary: Yes (very sensitive skin-breaks out in rashes frequently) Psoriasis Blood Disorders: Yes (anemia) Adverse Reaction/Blood Tranf: No Family Medical History Diabetes mellitus 19 MOTHER FH: COPD (chronic obstructive pulmonary disease) 19 MOTHER FH: schizophrenia 19 MOTHER FH: uterine cancer Fibromyalgia 19 MOTHER Heart Disease, Cancer, Diabetes Physical Exam Vital Signs Vital Signs - First Documented 10/02/21 22:52 Temp 36.6 Pulse 89 Resp 18 B/P (MAP) 115/80 (92) Pulse Ox 98 O2 Delivery Room Air Height, Weight, BMI Height: 5'5.00" Weight: 285lbs. 8.9oz. 129.332175fq; 39.00 BMI Method:Stated General Appearance: WD/WN, no apparent distress Eyes: bilateral eye normal inspection, bilateral eye PERRL, bilateral eye EOMI Ears: bilateral ear auricle normal, bilateral ear canal normal, bilateral ear TM normal Nose: normal inspection; No active bleeding, No discharge Mouth/Throat: other (No pointing of abscess. Significant dental caries.) Neck: non-tender, full range of motion Cardiovascular: normal peripheral pulses, regular rate, rhythm Respiratory: no respiratory distress, no accessory muscle use Procedures/Interventions Dental Procedures: Dental I&D Progress/Results/Core Measures Results/Orders My Orders Orders - LORETO EMERY Ketorolac Injection (Toradol Injection) (10/03/21 00:15) Amoxicillin/Clavulanate Tablet (Augmenti (10/03/21 00:15) Lidocaine 2% Viscous 15 Ml (Xylocaine Vi (10/03/21 00:15) Medications Given in ED Current Medications Medications Dose Ordered Sig/Ellie Route Start Time Stop Time Status Last Admin Dose Admin Amoxicillin/ Clavulanate Potassium 875 mg ONCE ONCE PO 10/03/21 00:15 10/03/21 00:16 DC 10/03/21 00:27 875 MG Ketorolac Tromethamine 60 mg ONCE ONCE IM 10/03/21 00:15 10/03/21 00:16 DC 10/03/21 00:22 60 MG Lidocaine HCl 5 ml ONCE ONCE PO 10/03/21 00:15 10/03/21 00:16 DC 10/03/21 00:27 5 ML Vital Signs/I&O 10/02/21 22:52 Temp 36.6 Pulse 89 Resp 18 B/P (MAP) 115/80 (92) Pulse Ox 98 O2 Delivery Room Air Blood Pressure Mean: 92 Progress Progress Note : Time: 00:07 Progress Note Toradol, Augmentin, viscous lidocaine and referral to dentistry Departure Impression Primary Impression: Dental abscess Disposition: 01 HOME, SELF-CARE Condition: Stable Departure-Patient Inst. Decision time for Depature: 00:07 Referrals: [facility] (PCP/Family) Primary Care Physician Patient Instructions: Dental Pain (DC) Add. Discharge Instructions: Tylenol 1000 mg every 8 hours needed for pain. Ibuprofen 800 mg every 8 hours as needed for pain. Warm compresses to the jaw may help reduce pain. Augmentin 1 tablet twice a day with food for the next 7 to 14 days to get the infection under control. Viscous lidocaine 5 cc on gauze packed over the teeth that hurt and held in p lace for 1 hour without eating or drinking. You may do this every 6 hours. You may also use topical Orajel and other similar gels. Make a follow-up appointment with a dentist. All discharge instructions reviewed with patient and/or family. Voiced underst anding. Scripts Amoxicillin/Potassium Clav (Amox Tr-K Clv 875-125 mg Tab) 875 Mg-125 Mg Tablet 1 EACH PO BID for 14 Days, #28 TAB 0 Refills Prov: LORETO EMERY 10/03/21 Work/School Note: Work Release Form Date Seen in the Emergency Department: Oct 03, 2021 Return to Work: Oct 04, 2021 Restrictions: No Restrictions LORETO EMERY Oct 03, 2021 00:10
[2021-10-03] MEDS ORDERED: AMOX1TAB12 PO ×3 (00:11→00:32)
[2021-10-03] MEDS ORDERED: KETOROLAC 60 MG/2 ML VIAL IM ONE (00:15)
[2021-10-03] MEDS ORDERED: LIDOCAINE 2% VISCOUS 15 ML UDC PO ONE (00:15)
[2021-10-03] MEDS ORDERED: AUGMENTIN 875 MG TAB (AMOXICILLIN/CLAVULANATE) PO ONE (00:15)
[2021-10-03 00:33] VITALS: BP 118/82
== END 2021-10-03 00:33 | disposition home or self-care (01) ==
LOC: EDUNIT# 22:42 → ER 22:45
DX: K04.7 Periapical abscess without sinus (principal); F17.210 Nicotine dependence, cigarettes, uncomplicated
CPT/HCPCS: 99284

== ENCOUNTER 2022-02-01 02:53 | Emergency (ER) | payer MEDICAID ==
[~2022-02-01 02:53] MED LIST changes: +ALBU8.5H6 IH; +AMOX1TAB12 PO
[2022-02-01 03:48] LABS: BILIRUBIN,URINE NEGATIVE (NEGATIVE); CLARITY,URINE CLEAR; COLOR,URINE YELLOW; GLUCOSE, URINE (UA) NEGATIVE (NEGATIVE); KETONES,URINE TRACE (NEGATIVE); LEUKOCYTE ESTERASE ,URINE NEGATIVE (NEGATIVE); NITRITE,URINE NEGATIVE (NEGATIVE); PH,URINE 5.5 (5-9); PROTEIN,URINE TRACE (NEGATIVE)
--- NOTE | 2022-02-01 03:56 | ED General ---
General Chief Complaint: Cough/Cold/Flu Symptoms Stated Complaint: ABD PAIN,KIDNEY PAIN,FEVER,NAUSEA Nursing Triage Note: PT ARRIVAL TO ER VIA PRIVATE VEHICLE FROM HOME WITH COMPLAINTS OF COUGH, CONGESTION, FEVER, NAUSEA, KIDNEY PAIN, ABDOMINAL PAIN, BODY ACHES, AND IS KNOWN FLU A+. PATIENT STATES THAT MOST OF THE SYMPTOMS STARTED LAST WEEK AND SHE TESTED FLU + ON MONDAY OF LAST WEEK. PT IS NOW HAVING ABDOMINAL PAIN, AND KIDNEY PAIN THAT HAS WORSENED SIGNIFICANTLY PER PATIENT. Source of Information: Patient History of Present Illness Date Seen by Provider: Feb 01, 2022 Time Seen by Provider: 03:33 Initial Comments PT ARRIVES VIA POV FROM HOME PT WITH MULTIPLE COMPLAINTS STATES SHE STARTED GETTING SICK WITH COUGH AND CONGESTION LAST Monday01/25/22, THEN STARTED RUNNING FEVER UP TO 104, ALONG WITH HEADACHE, BODY ACHES, FATIGUE, NAUSEA ON MONDAY REPORTS TO ME THAT SHE TESTED + FOR INFLUENZA AT AT WORK ( [employer]) ON Monday01/27/22. NO TREATMENT AND DID NOT SEE A DR. AT ANY TIME SHE C/O UPPER ABDOMINAL PAIN AND STATES "MY KIDNEYS HURT" STATES TEMP WAS 103 TONIGHT, AND TOOK 1 NAPROXEN. HAS NOT TAKEN ANYTHING ELSE FOR SYMPTOMS AT ANY TIME SHE STATES SHE HAS ASTHMA, SHE HAS NOT HAD SHORTNESS OF BREATH OR USED HER INHALER RECENTLY NO CHEST PAIN LMP--01/28/22-01/31/22. NORMAL. S/P BTL MULTIPLE VISITS FOR VARIOUS COMPLAINTS, MOST ARE PAIN-RELATED COMPLAINTS PCP: [facility]. DR. Gloria HANKINS Allergies and Home Medications Allergies Coded Allergies: No Known Drug Allergies (Unverified , 03/11/13) Patient Home Medication List Home Medication List Reviewed: Yes Albuterol Sulfate (Proventil Hfa) 6.7 Gm Hfa.aer.ad, 2 PUFF IH Q6H PRN for SHORTNESS OF BREATH, (Reported) Entered as Reported by: ARMANI SCOTT on 10/23/16 1013 Amoxicillin (Amoxicillin) 500 Mg Capsule, 500 MG PO TID Prescribed by: LIZBETH SALAZAR on 11/10/181955 Amoxicillin/Potassium Clav (Amox Tr-K Clv 875-125 mg Tab) 875 Mg-125 Mg Tablet, 1 EACH PO BID Prescribed by: LORETO EMERY on 10/03/21 0032 Benzonatate (Tessalon Perles) 100 Mg Capsule, 200 MG PO TID Prescribed by: SILVIA PARSON on 02/01/22 0510 Cefdinir (Cefdinir) 300 Mg Capsule, 300 MG PO BID Prescribed by: BLAKE BRO on 11/11/17 0216 Cefdinir (Cefdinir) 300 Mg Capsule, 300 MG PO BID Prescribed by: SILVIA PARSON on 09/13/20 2327 Cefpodoxime Proxetil (Cefpodoxime Proxetil) 100 Mg Tablet, 100 MG PO Q12H Prescribed by: NANY AMEZCUA MD on 06/28/21 232 Cephalexin (Cephalexin) 500 Mg Tablet, 500 MG PO TID Prescribed by: LIZBETH SALAZAR on 09/08/18 121 Clindamycin HCl (Clindamycin HCl) 300 Mg Capsule, 300 MG PO TID Prescribed by: LIZBETH SALAZAR on 03/15/18 222 Cyclobenzaprine HCl (Cyclobenzaprine HCl) 10 Mg Tablet, 10 MG PO Q8H PRN for SPASMS Prescribed by: SILVIA PARSON on 02/01/22 0510 Ferrous Sulfate (Iron) 325 Mg Tablet, 325 MG PO DAILY, (Reported) Entered as Reported by: LEONARDO PALACIOS on 08/28/17 0948 Fluticasone Propionate (Flonase Allergy Relief) 9.9 Ml [place].susp, 1 SPRAY NS DAILY PRN for ALLERGIES, (Reported) Entered as Reported by: ARMANI SCOTT on 10/23/16 1013 Gabapentin (Gabapentin) 100 Mg Capsule, 100 MG PO BID PRN for ANXIETY, (Reported ) Entered as Reported by: ARMANI SCOTT on 10/23/16 1013 Hydrocodone/Acetaminophen (Hydrocodone/Acetaminophen 5 MG/325 MG TAB) 1 Each Tablet, 1 TAB PO Q6H Prescribed by: LIZBETH SALAZAR on 11/10/18 1948 Hydroxyzine HCl (Hydroxyzine HCl) 50 Mg Tablet, 50 MG PO HS, (Reported) Entered as Reported by: ARMANI SCOTT on 10/23/16 1013 Hydroxyzine Pamoate (Hydroxyzine Pamoate) 50 Mg Capsule, 50 MG PO Q6H PRN for ANXIETY Prescribed by: SILVIA PARSON on 07/05/20 0313 Lisdexamfetamine Dimesylate (Vyvanse) 40 Mg Capsule, 40 MG PO DAILY, (Reported) Entered as Reported by: LEONARDO PALACIOS on 08/28/17 0945 Mupirocin (Mupirocin) 22 Gm Oint...g., 1 GM TP BID Prescribed by: LIZBETH SALAZAR on 09/08/18 1211 Nitrofurantoin Monohyd/M-Cryst (Macrobid 100 mg Capsule) 100 Mg Capsule, 1 TAB PO BID Prescribed by: JACQUES ONEAL on 08/28/17 1401 Ondansetron (Ondansetron Odt) 4 Mg Tab.rapdis, 4 MG PO Q6H Prescribed by: NANY AMEZCUA MD on 06/28/21 2320 Prednisone (Prednisone) 20 Mg Tab, 40 MG PO DAILY Prescribed by: SILVIA PARSON on 09/13/20 232 Prednisone (Prednisone) 20 Mg Tab, 40 MG PO DAILY Prescribed by: SILVIA PARSON on 02/01/22 0510 Promethazine/Dextromethorphan (Promethazine-Dm Syrup) 6.25 Mg-15 Mg/5 Ml Syrup, 5 ML PO Q4H Prescribed by: SILVIA PARSON on 02/01/22 0510 Vortioxetine Hydrobromide (Trintellix) 20 Mg Tablet, 20 MG PO DAILY, (Reported) Entered as Reported by: KATALINA YOUNG on 05/26/16 5875 Review of Systems Review of Systems Constitutional: see HPI, fever, malaise, weakness EENTM: see HPI, nose congestion Respiratory: see HPI, cough; No short of breath Cardiovascular: no symptoms reported Gastrointestinal: see HPI, abdominal pain; No diarrhea; nausea; No vomiting Genitourinary: no symptoms reported, decreased output Musculoskeletal: see HPI, back pain, other (BODY ACHES) Skin: no symptoms reported Psychiatric/Neurological: See HPI, Headache Hematologic/Lymphatic: No Symptoms Reported Immunological/Allergic: no symptoms reported Past Imiytbb-Ilbccy-Rdhgfp Hx Patient Social History Tobacco Use?: Yes Tobacco type used: Cigarettes Smoking Status: Current Everyday Smoker Use of E-Cig and/or Vaping dev: No Substance use?: Yes Substance type: Amphetamines, Methamphetamine, Marijuana Alcohol Use?: No Pt feels they are or have been: No Immunizations Up To Date Tetanus Booster (TDap): Unknown Influenza Vaccine Up-to-Date: Yes; Up-to-Date First/Initial COVID19 Vaccinat: 01/2021 Second COVID19 Vaccination Kamran: 02/2021 Third COVID19 Vaccination Date: 01/2021 COVID19 Vaccine Psychiatry Physician: [facility] Seasonal Allergies Seasonal Allergies: Yes Past Medical History Surgery/Hospitalization HX: PMH;ASTHMA. SURGERY;T&A, GALLBLADDER, , TUBAL, AND X'S 2. 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 Genitourinary: No Gastrointestinal: Yes Chronic Diarrhea, Esophagitis Musculoskeletal: Yes (LEFT ARM FX/ORIF, right ankle fx) Arthritis, Chronic Back Pain, Fractures Endocrine: No (OBESITY) HEENT: Yes (S/P T&A; CHRONIC DENTAL ISSUES) Tonsilitis Cancer: No Psychosocial: Yes (OVEDOSED ON TRAZADONE) ADD/ADHD, Anxiety, ODD, Suicide Attempts, Depression Integumentary: Yes (very sensitive skin-breaks out in rashes frequently) Psoriasis Blood Disorders: Yes (anemia) Adverse Reaction/Blood Tranf: No Family Medical History Diabetes mellitus 19 MOTHER FH: COPD (chronic obstructive pulmonary disease) 19 MOTHER FH: schizophrenia 19 MOTHER FH: uterine cancer Fibromyalgia 19 MOTHER Heart Disease, Cancer, Diabetes SOCIAL HISTORY: PER PT ON 02/01/22 -SMOKES 2 PPD -DRUGS--METHAMPHETAMINES, THC. DENIES IV USE -ETOH--DENIES USE PAST SURGICAL HISTORY: -WISDOM TEETH REMOVED -BILATERAL TUBAL LIGATION -SURGERY FOR ECTOPIC -[id number] X 2 -CHOLECYSTECTOMY -TONSILLECTOMY/ADENOIDECTOMY Physical Exam Vital Signs Vital Signs - First Documented 02/01/22 03:01 Temp 36.8 Pulse 89 Resp 20 B/P (MAP) 138/90 (106) Pulse Ox 100 O2 Delivery Room Air Capillary Refill : Less Than 3 Seconds Height, Weight, BMI Height: 5'5.00" Weight: 285lbs. 8.9oz. 129.435060dl; 39.00 BMI Method:Stated General Appearance: No Apparent Distress, WD/WN, Obese, Other (REEKS OF CIGARETTES. SITTING MALAGASY-STYLE, ROCKING BACK AND FORTH; SPEECH IS RAPID AND SOMEWHAT ERRATIC; WEARING A VERY TIGHT "SHAPER" TYPE UNDERSHIRT) HEENT: PERRL/EOMI, Pharynx Normal, Moist Mucous Membranes Neck: Normal Inspection Respiratory: Chest Non Tender, Normal Breath Sounds, No Accessory Muscle Use, No Respiratory Distress Cardiovascular: Regular Rate, Rhythm, No Edema, No JVD, No Murmur Gastrointestinal: Normal Bowel Sounds, Soft; No Distended, No Guarding, No Hernia, No Mass, No Rebound; Tenderness (DIFFUSE UPPER ABDOMINAL TENDERNESS, SUPRAPUBIC TENDERNESS AND BILATERAL FLANK TENDERNESS) Back: CVA Tenderness (L), CVA Tenderness (R) Extremity: Normal Capillary Refill, Normal Inspection, Normal Range of Motion, Non Tender, No Calf Tenderness, No Pedal Edema Neurologic/Psychiatric: Alert, Oriented x3, No Motor/Sensory Deficits, 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 servicer II- XII Norm as Tested Skin: Normal Color, Warm/Dry, Tattoos/Piercings Procedures/Interventions Dental Procedures: Dental I&D Progress/Results/Core Measures Suspected Sepsis SIRS Temperature: Pulse: 89 Respiratory Rate: 20 Blood Pressure 138 /90 Mean: 106 Results/Orders Lab Results Laboratory Tests Test 02/01/22 03:04 Range/Units Urine Color YELLOW Urine Clarity CLEAR Urine pH 5.5 5-9 Urine Specific [place] >=1.030 1.016-1.022 Urine Protein TRACE H NEGATIVE Urine Glucose (UA) NEGATIVE NEGATIVE Urine Ketones TRACE H NEGATIVE Urine Nitrite NEGATIVE NEGATIVE Urine Bilirubin NEGATIVE NEGATIVE Urine Urobilinogen 0.2 < = 1.0 MG/DL Urine Leukocyte Esterase NEGATIVE NEGATIVE Urine RBC (Auto) NEGATIVE NEGATIVE Urine RBC NONE /HPF Urine WBC NONE /HPF Urine Squamous Epithelial Cells 2-5 /HPF Urine Crystals PRESENT H /LPF Urine Calcium Oxalate Crystals MODERATE H /LPF Urine Bacteria NEGATIVE /HPF Urine Casts NONE /LPF Urine Mucus LARGE H /LPF Urine Culture Indicated NO Urine Opiates Screen NEGATIVE NEGATIVE Urine Oxycodone Screen NEGATIVE NEGATIVE Urine Methadone Screen NEGATIVE NEGATIVE Urine Propoxyphene Screen NEGATIVE NEGATIVE Urine Barbiturates Screen NEGATIVE NEGATIVE Ur Tricyclic Antidepressants Screen NEGATIVE NEGATIVE Urine Phencyclidine Screen NEGATIVE NEGATIVE Urine Amphetamines Screen NEGATIVE NEGATIVE Urine Methamphetamines Screen NEGATIVE NEGATIVE Urine Benzodiazepines Screen NEGATIVE NEGATIVE Urine Cocaine Screen NEGATIVE NEGATIVE Urine Cannabinoids Screen POSITIVE H NEGATIVE My Orders Orders - SILVIA PARSON DO Urine Bedside (02/01/22 03:32) Drug Screen Stat (Urine) (02/01/22 03:32) Ua Culture If Indicated (02/01/22 03:42) Vital Signs/I&O 02/01/22 02/01/22 02/01/22 03:01 03:01 05:06 Temp 36.8 36.8 Pulse 89 81 Resp 20 20 B/P (MAP) 138/90 (106) 108/69 Pulse Ox 100 98 O2 Delivery Room Air Room Air Room Air Capillary Refill : Less Than 3 Seconds Blood Pressure Mean: 106 Progress Note : Progress Note PPE WORN NO COUGH NO DYSPNEA NO HYPOXIA NO FEVER NO GI COMPLAINTS DURING ER STAY VITALS STABLE MARKED DELAY IN OBTAINING UA RESULTS OFFERED TO DO ADDITIONAL TESTING SUCH BLOOD WORK AND CT SCAN, CXR, ETC. PT OPTS TO TRY SYMPTOMATIC MEDICATION AT THIS TIME, AND WANTS A WORK NOTE--WAS SUPPOSED TO WORK TONIGHT AND TOMORROW NIGHT. THEN OFF UNTIL MONDAY NIGHT. DISCUSSED SYMPTOMATIC TREATMENT, NEED FOR FOLLOW UP AND RETURN PRECAUTIONS WITH PT Departure Impression Primary Impression: Influenza A Disposition: 01 HOME, SELF-CARE Condition: Stable Departure-Patient Inst. Decision time for Depature: 05:07 Referrals: [facility] (PCP/Family) Primary Care Physician Patient Instructions: Flu, Adult (DC) Add. Discharge Instructions: LOTS OF CLEAR LIQUIDS--WATER, BROTH, JELLO, GATORADE BRATS DIET--BANANAS, RICE, APPLESAUCE, TOAST, SALTINES TYLENOL 1 GRAM PLUS MOTRIN 800 MG EVERY 6 HOURS NEEDED FOR PAIN OR FEVER OVER [address] FOLLOW UP WITH YOUR DR IN 3-4 DAYS IF NO BETTER, RETURN TO ER IF WORSE All discharge instructions reviewed with patient and/or family. Voiced understanding. Scripts Promethazine/Dextromethorphan (Promethazine-Dm Syrup) 6.25 Mg-15 Mg/5 Ml Syrup 5 ML PO Q4H for Cough, #200 ML Prov: SILVIA PARSON DO 02/01/22 Benzonatate (TESSALON PERLES) 100 Mg Capsule 200 MG PO TID, #30 CAP Prov: SILVIA PARSON DO 02/01/22 Prednisone (Prednisone) 20 Mg Tab 40 MG PO DAILY, #6 TAB 0 Refills Prov: SILVIA PARSON DO 02/01/22 Cyclobenzaprine HCl (Cyclobenzaprine HCl) 10 Mg Tablet 10 MG PO Q8H PRN for SPASMS, #15 TAB 0 Refills Prov: SILVIA PARSON DO 02/01/22 Work/School Note: Work Release Form Date Seen in the Emergency Department: Feb 01, 2022 Return to Work: Feb 04, 2022 SILVIA PARSON DO Feb 01, 2022 03:56
[2022-02-01 04:17] LABS: AMPHETAMINE SCREEN, URINE NEGATIVE (NEGATIVE); BARBITURATE SCREEN URINE NEGATIVE (NEGATIVE); BENZODIAZEPINES SCREEN URINE NEGATIVE (NEGATIVE); CANNABINOID SCREEN, URINE POSITIVE (NEGATIVE); COCAINE SCREEN URINE NEGATIVE (NEGATIVE); METHADONE STAT NEGATIVE (NEGATIVE); OPIATE SCREEN URINE NEGATIVE (NEGATIVE); OXYCODONE STAT NEGATIVE (NEGATIVE); PROPOXYPHENE STAT NEGATIVE (NEGATIVE); TRICYCLIC ANTIDEPRESSANTS SCRE NEGATIVE (NEGATIVE)
[2022-02-01 04:48] LABS: BACTERIA,URINE NEGATIVE /HPF; CALCIUM OXALATE CRYSTALS,UR MODERATE /LPF
[2022-02-01 05:06] VITALS: BP 108/69
[2022-02-01] MEDS ORDERED: PRD20T PO (05:10)
[2022-02-01] MEDS ORDERED: D-ME473S11 PO (05:10)
[2022-02-01] MEDS ORDERED: CYCL10TA25 PO (05:10)
[2022-02-01] MEDS ORDERED: BENZ100C18 PO (05:10)
== END 2022-02-01 05:27 | disposition home or self-care (01) ==
LOC: EDUNIT# 02:53 → ER 02:57
DX: J10.1 Influenza due to other identified influenza virus with other respiratory manifestations (principal); F17.210 Nicotine dependence, cigarettes, uncomplicated; E66.9 Obesity, unspecified; Z68.39 Body mass index [BMI] 39.0-39.9, adult
CPT/HCPCS: 80306; 81000; 99282